=== PATIENT | female | born 1940 | race Caucasian/White ===

== ENCOUNTER 2019-08-28 11:36 | Observation (INO) | payer MEDICARE, BC ==
--- OUTSIDE RECORDS SUMMARY | 2019-08-28 11:43 | XMS REPORT | Summary of Care ---
:1940 Author Organization [facility] Address [address] [address] Care Team Providers Name Role Phone Astrid Michelle Primary Care Provider Reason for Visit Reason Comments Suture / Staple Removal Encounter Details Date Type Department Care Team Description 07/10/2019 Office Visit [facility] Astrid Michelle MD Visit for suture removal (Primary Dx); Medicine [address] [facility] (hiatus hernia) [address] [place], [place] [id number] [place] [address] [phone] Allergies Active Allergy Reactions Severity Noted Date Comments No Known Allergies Other 02/08/2008 documented as of this encounter (statuses as of 07/10/2019) Medications Medication Sig Dispensed Refills Start Date End Date Status CENTRUM SILVER Oral Tab Take by mouth. 0 Active CALTRATE 600+D PLUS Take 1 Tab by 0 Active 600-400 MG-UNIT Oral mouth DAILY. Tab B-12 250 MCG Oral Tab Take 1 Tab by 0 Active mouth DAILY. Ferrous Sulfate (IRON) Take 1 Tab by 0 Active 325 (65 FE) MG Oral mouth TWICE TabIndications: Anemia DAILY. LISINOPRIL-HCTZ 10-12.5 Take 1 Tab by 90 Tab 3 04/24/2019 Active MG Oral TabIndications: mouth DAILY. Hypertension, unspecified type documented as of this encounter (statuses as of 07/10/2019) Active Problems Problem Noted Date Osteopenia 08/28/2014 Breast cancer 06/12/2013 Overview: Diagnosis 04/07; Dr Painting / Aguilar. 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 General patient education discussion including: obesity-related excess mortality Heme + stool 05/08/2009 Overview: 05/03 physical Diverticulosis of colon 05/03/2008 Overview: Colon 04/02-extensive diverticulosis Essential hypertension 01/20/2008 GERD 01/20/2008 HEART MURMUR 01/20/2008 Right bundle branch block 01/20/2008 documented as of this encounter (statuses as of 07/10/2019) Resolved Problems Problem Noted Date Resolved Date Anemia 01/20/2008 08/18/2011 documented as of this encounter (statuses as of 07/10/2019) Immunizations Name Administration Dates Next Due Influenza (IM) Preservative Free 04/19/2017, 06/25/2015, 06/06/2009 Influenza Vaccine 65 Yrs + 04/21/2019 Influenza Vaccine High Dose 04/20/2018, 04/20/2016 PNEUMOCOCCAL POLYSACCHARIDE VACCINE 03/04/2012 Pneumococcal Conjugate(13 Valent) 08/06/2015 documented as of this encounter Social History Tobacco Use Types Packs/Day Years Used Date Never Smoker Smokeless Tobacco: Never Used Alcohol Use Drinks/Week oz/Week Comments Yes ocass Social Isolation Answer Date Recorded In a typical week, how many times do you More than three times a week 2018 talk on the phone with family, friends, or neighbors? How often do you get together with friends More than three times a week 11/30 or relatives? How often do you attend episcopalian or Not asked mormon services? Do you belong to any clubs or Not asked organizations such as episcopalian groups, unions, fraternal or athletic groups, or school groups? How often do you attend meetings of the Not asked clubs or organizations you belong to? Are you now , , , 11/30/2018 , never or living with a partner? Physical Activity Answer Date Recorded On average, how many days per week do you engage in moderate to 0 days 2018 strenuous exercise (like walking fast, running, jogging, dancing, swimming, biking, or other activities that cause a light or heavy sweat)? On average, how many minutes do you engage in exercise at this 0 min 2018 level? Stress Answer Date Recorded Do you feel stress - tense, restless, nervous, or anxious, Not at all 2018 or unable to sleep at night because your mind is troubled all the time - these days? Financial Resource Strain Answer Date Recorded How hard is it for you to pay for the very basics like Not hard at all 2018 food, housing, medical care, and heating? Intimate Partner Violence Answer Date Recorded Within the last year, have you been afraid of your partner or No 11/30/2018 ex-partner? Within the last year, have you been humiliated or emotionally No 11/30/2018 abused in other ways by your partner or ex-partner? Within the last year, have you been kicked, hit, slapped, or No 11/30/2018 otherwise physically hurt by your partner or ex-partner? Within the last year, have you been raped or forced to have any No 11/30/2018 kind of sexual activity by your partner or ex-partner? Food Insecurity Answer Date Recorded Within the past 12 months, you worried that your food would Never true 2018 run out before you got money to buy more. Within the past 12 months, the food you bought just didn't Never true 2018 last and you didn't have money to get more. Transportation Needs Answer Date Recorded In the past 12 months, has lack of transportation kept you from No 11/30/2018 medical appointments or from getting medications? In the past 12 months, has lack of transportation kept you from No 11/30/2018 meetings, work, or getting things needed for daily living? Sex Assigned at Date Recorded Not on file Job Start Date Occupation Industry Not on file Not on file Not on file Travel History Travel Start Travel End No recent travel history available. documented as of this encounter Last Filed Vital Signs Vital Sign Reading Time Taken Comments Blood Pressure 138/70 07/10/2019 2:57 PM EST Pulse 103 07/10/2019 2:57 PM EST Temperature - - Respiratory Rate - - Oxygen Saturation 98% 07/10/2019 2:57 PM EST Inhaled Oxygen Concentration - - Weight 101.1 kg (222 lb 12.8 oz) 07/10/2019 2:57 PM EST Height 165.1 cm (5' 5") 07/10/2019 2:57 PM EST Body Mass Index 37.08 07/10/2019 2:57 PM EST documented in this encounter Progress Notes Astrid Michelle MD - 07/10/2019 2:40 PM EST NAME:Laura Blanton [birth year] ENC Date: 07/10/2019 CC: Chief Complaint Patient presents with Suture / Staple Removal Laura Blanton is a 79-y.o. female accompanied by spouse Benign lesion of the right forearm excized last week - Reviewed path with patient 2. Following with Dr Sheikh - Recent endoscopies showed hiatal hernia but nothing bleeding overtly- Current Outpatient Medications Medication Sig B-12 250 MCG Oral Tab Take 1 Tab by mouth DAILY. CALTRATE 600+D PLUS 600-400 MG-UNIT Oral Tab Take 1 Tab by mouth DAILY. CENTRUM SILVER Oral Tab Take by mouth. Ferrous Sulfate (IRON) 325 (65 FE) MG Oral Tab Take 1 Tab by mouth TWICE DAILY. LISINOPRIL-HCTZ 10-12.5 MG Oral Tab Take 1 Tab by mouth DAILY. No current facility-administered medications for this visit. Patient Active Problem List Diagnosis Date Noted Osteopenia 08/28/2014 Breast cancer (HCC) 06/12/2013 Diagnosis 04/07; Dr Painting / Aguilar. 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 General patient education discussion including: obesity-related excess mortality Heme + stool 05/08/200905/03 physical Diverticulosis of colon 05/03/2008 Colon 04/02-extensive diverticulosis Essential hypertension 01/20/2008 GERD 01/20/2008 HEART MURMUR 01/20/2008 Right bundle branch block 01/20/2008 Family History Problem Relation Age of Onset Heart Father Cervical Cancer Sister Arthritis Mother Lung Cancer Mother Cancer Sister Uncertain; possibly lung Breast Cancer Daughter No Known Problems Sister Non-Applicable Daughter Hysterectomy No Known Problems Daughter No cardiopulmonary symptoms No upper or lower GI complaints No urinary tract symptoms. No bruising/ bleeding. No neurological complaints . No insomnia.+ . Social History Tobacco Use Smoking status: Never Smoker Smokeless tobacco: Never Used Substance Use Topics Alcohol use: Yes Comment: ocass Drug use: No OBJECTIVE: BP 138/70 | Pulse 103 | Ht 5' 5" (1.651 m) | Wt 222 lb 12.8 oz (101.1 kg) | SpO2 98% | BMI 37.08 kg/m . Wound healing well- Left one stitch in the center - will remove - A/P ICD-9-CM ICD-10-CM 1. Visit for suture removal V58.32 Z48.02 2. HH (hiatus hernia) 553.3 K44.9 There are no Patient Instructions on file for this visit. AUTHOR: Astrid Michelle MD 17:28 07/10/2019 documented in this encounter Plan of Treatment Date Type Specialty Care Team Description 12/06/2019 Chronic Care Management Family Practice Health Maintenance Due Date Last Done Comments DTaP/Tdap/Td Vaccines ( - 1952 Tdap) DEPRESSION SCREENING 12/01/2019 11/30/2018 FALL RISK ASSESSMENT 12/01/2019 11/30/2018, 11/30/2018 MEDICARE ANNUAL WELLNESS 12/01/2019 11/30/2018, 10/26/2017, VISIT 04/20/2016, Additional history exists ZOSTER IMMUNIZATION SERIES 06/28/2020 Postponed from (1 of 2) 1991 (Vaccine not available) OSTEOPOROSIS SCREENING 08/27/2027 08/27/2017, 09/08/2016, 04/22/2015, Additional history exists PNEUMOCOCCAL 65+YRS Completed 08/06/2015, 03/04/2012 INFLUENZA VACCINE Completed 04/21/2019, 04/20/2018, 04/19/2017, Additional history exists HEPATITIS A IMMUNIZATION Aged Out No longer eligible SERIES based on patient's age to complete this topic HPV IMMUNIZATION SERIES Aged Out No longer eligible based on patient's age to complete this topic MENINGOCOCCAL VACCINE IMM Aged Out No longer eligible based on patient's age to complete this topic documented as of this encounter Goals Goal Patient Goal Associated Recent Patient-Stated? Author Type Problems Progress Blood Pressure Blood Pressure 138/70 No Viviana, < 150/90 (07/10/2019 MD Astrid 2:57 PM EST) Note: This is an individualized treatment (blood pressure) goal for Laura Barrera Austic: Displayed above (on the left) is your goal for blood pressure control. Your most recent blood pressure is also shown above, on the right. You should try to achieve blood pressures that are lower than your goal listed above (on the left). Weight loss vs. 18 mo Lifestyle 13.1 (07/10/2019 2:57 PM No Astrid Michelle MD max (lbs) >= 10 EST) Note: This is an individualized lifestyle goal for Laura Barrera Austic: Your body mass index (BMI) is more than 30. You should lose weight. A reasonable starting goal is to lose 10 pounds. Displayed above is how many pounds you have lost thus far towards your 10 pound weight loss goal. Take all prescribed medications as directed Self-management Astrid Anderson MD Note: This is an individualized self-management goal for Laura Barrera Austic: Please take all prescribed medications as directed. 1. Do not skip doses. If you cannot afford your medications, talk with your doctor. 2. Use a pill reminder system such as a pill box if needed. Your pharmacist can help you with this. 3. Contact your Pharmacy 5 days before your medication runs out. If you cannot take your medications for any reasons, talk with your doctor. 4. Please bring all of your medication bottles and inhalers (or a list of all your medications/inhalers) with you to every visit. Potential barriers to meeting all of your care plan goals will continue to be addressed on an ongoing basis. 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
--- NOTE | 2019-08-28 11:52 | ED ---
Lower Extremity - HPI Summary HPI Summary: Patient is a 79 y/o F presenting to the ED via EMS for a chief complaint of bilateral knee pain after a fall on 08/27/19. Currently, patient complains of bilateral knee pain, right more than left, which worsens with movement and is resolved at rest. Patient also notes dizziness and generalized weakness. She denies decreased appetite. Per EMS, patient has a precancerous blood disorder for which she is on day 6 out of 7 for chemotherapy treatments. She is due for another appointment with Dr. Sheikh at 12:00 on 08/28/19, but was advised to be seen at [facility] for the knee pain. - History of Current Complaint Stated Complaint: FALL- KNEE PAIN PER EMS Time Seen by Provider: 08/28/19 11:51 Hx Obtained From: Patient, EMS Mechanism Of Injury: Fall From A Standing Position Onset of Pain: Hours Onset/Duration: Still Present Severity Initially: Moderate Severity Currently: Moderate Pain Scale Used: 0-10 Numeric Timing: Constant Location: Is Discrete @ - Bilateral knees Associated Signs And Symptoms: Positive: Weakness - Generalized, Dizziness, Knee Pain - Bilateral knee, right more than left Aggravating Factor(s): Movement Alleviating Factor(s): Rest - Allergies/Home Medications Allergies/Adverse Reactions: Allergies Allergy/AdvReac Type Severity Reaction Status Date / Time No Known Allergies Allergy Verified 07/07/19 15:21 PMH/Surg Hx/FS Hx/Imm Hx Previously Healthy: Yes Endocrine/Hematology History: Reports: Hx Blood Disorders - Precancerous Musculoskeletal History: Denies: Hx Osteoporosis Sensory History: Denies: Hx Legally Blind, Hx Deafness Opthamlomology History: Denies: Hx Legally Blind EENT History: Denies: Hx Deafness - Cancer History Cancer Type, Location and Year: Precancerous blood disorder Hx Chemotherapy: Yes - Surgical History Surgical History: Yes Surgery Procedure, Year, and Place: TONSILLECTOMY Infectious Disease History: No Infectious Disease History: Denies: Traveled Outside the [place] in Last 30 Days - Family History Known Family History: Negative: Cardiac Disease - Social History Occupation: Retired Lives: With Family Alcohol Use: None Hx Substance Use: No Substance Use Type: Reports: None Hx Tobacco Use: No Smoking Status (MU): Never Smoked Tobacco Review of Systems Negative: Other - Negative decreased appetite Positive: Arthralgia - Bilateral knee, right more than left Neurological: Other - Positive dizziness Positive: Weakness - Generalized All Other Systems Reviewed And Are Negative: Yes Physical Exam - Summary Physical Exam Summary: VITAL SIGNS: Reviewed. GENERAL: Patient is a well-developed and nourished female with pallor who is lying comfortable in the stretcher. Patient is not in any acute respiratory distress. HEAD AND FACE: No signs of trauma. No ecchymosis, hematomas or skull depressions. No sinus tenderness. EYES: PERRLA, EOMI x 2, No injected conjunctiva, no nystagmus. EARS: Hearing grossly intact. Ear canals and tympanic membranes are within normal limits. MOUTH: Oropharynx within normal limits. NECK: Supple, trachea is midline, no adenopathy, no JVD, no carotid bruit, no c- spine tenderness, neck with full ROM. CHEST: Symmetric, no tenderness at palpation. LUNGS: Clear to auscultation bilaterally. No wheezing or crackles. CVS: Regular rate and rhythm, S1 and S2 present, no murmurs or gallops appreciated. ABDOMEN: Soft, non-tender. No signs of distention. No rebound, no guarding, and no masses palpated. Bowel sounds are normal. EXTREMITIES: FROM in all major joints, no cyanosis or clubbing. Bilateral knee edema. NEURO: Alert and oriented x 3. No acute neurological deficits. Speech is normal and follows commands. SKIN: Dry and warm. Triage Information Reviewed: Yes Vital Signs Reviewed: Yes Procedures - Sedation Patient Received Moderate/Deep Sedation with Procedure: No Diagnostics - Laboratory Result Diagrams: 08/28/19 13:15 08/28/19 13:15 Lab Statement: Any lab studies that have been ordered have been reviewed, and results considered in the medical decision making process. - Radiology Chest X-ray Radiology Interpretation Completed By: Radiologist Summary of Radiographic Findings: Chest X-ray IMPRESSION: #. No acute pulmonary or cardiac process evident. #. Suggestion of a retrocardiac hiatal hernia with associated compressive atelectasis at the medial LEFT lower lobe. Reviewed by Dr. Auguste. Knee X-ray Radiology Interpretation Completed By: Radiologist Summary of Radiographic Findings: Knee X-ray IMPRESSION: BILATERAL OSTEOARTHRITIS. OSTEOPENIA. NO ACUTE OSSEOUS INJURY. THE DEGREE OF OSTEOPENIA MAY MAKE A NONDISPLACED FRACTURE RADIOGRAPHICALLY OCCULT. IF SYMPTOMS PERSIST, RECOMMEND REPEAT IMAGING. Reviewed by Dr. Auguste. - EKG 12:35 Cardiac Rate: NL - 82 BPM EKG Rhythm: Sinus Rhythm ST Segment: Normal Ectopy: None Summary of EKG Findings: EKG at 12:35 shows normal sinus rhythm with 82 BPM, no ST elevations, no STEMI, poor quality EKG. Reviewed and interpreted by Dr. Auguste. Lower Extremity Course/Dx - Course Assessment/Plan: Patient is a 79 y/o F presenting to the ED via EMS for a chief complaint of bilateral knee pain after a fall on 08/27/19. Currently, patients complain of bilateral knee pain, right more than left, which worsens with movement and is resolved at rest. Patient also notes dizziness and generalized weakness. She denies decreased appetite. Per EMS, the patient has a precancerous blood disorder for which she is on day 6 out of 7 for chemotherapy treatments. She is due for another appointment with Dr. Sheikh at 12:00 on , but was advised to be seen at [facility] for the knee pain. In the ED course the patient was placed on a monitoring specialist, IV access was obtained, and IV fluids started. Blood test is w/o any significant abnormality except for CXR: No acute pulmonary process evident. B/L KNee x rays: bilateral osteoarthritis. Osteopenia. No acute osseous injury. I discussed the case with Wendy Capellan NP from oncology and after she examined the patient, she decided to admit the patient to Dr. Sheikh's services for further workup and management. The patient is hemodynamically stable. - Diagnoses Provider Diagnoses: Elevated troponin, Weakness, Fall, Knee pain, bilateral - Physician Notifications Discussed Care Of Patient With: Jose Edge - At 14:34, Dr. Jose Edge will consult for the patient. At 14:50, Dr. Sheikh reviewed the patients case and agrees to admit the patient to [facility] with a diagnosis of elevated troponin, weakness, fall, and bilateral knee pain. Time Discussed With Above Provider: 14:34 Instructed by Provider To: Admit As Inpatient Discharge ED - Sign-Out/Discharge Documenting (check all that apply): Patient Departure - Admit - Discharge Plan Condition: Stable Disposition: ADMITTED TO [facility] - Billing Disposition and Condition Condition: STABLE Disposition: Admitted to [facility] - Attestation Statements Document Initiated by Scribe: Yes Documenting Scribe: Monica Moreno Provider For Whom Scribe is Documenting (Include Credential): Charlie Auguste MD Scribe Attestation: I, Monica Moreno, scribed for Charlie Auguste MD on 08/28/19 at 2142. Scribe Documentation Reviewed: Yes Provider Attestation: The documentation as recorded by the allenibeMonica accurately reflects the service I personally performed and the decisions made by me, Charlie Auguste MD Status of Scribe Document: Viewed
[2019-08-28 13:45] LABS: ABS Lymphocytes 0.7 10^3/ul (1.0-4.8); ABS Neutrophils 2.1 10^3/ul (1.5-7.7); Eosinophil % 0.3 %; Hematocrit 22 % (35-47); Hemoglobin 7.9 g/dL (12.0-16.0); Lymphocyte % 24.1 %; Mean Corpuscular HGB Conc 35 g/dL (31-36); Mean Corpuscular Hemoglobin 39 pg (27-31); Mean Corpuscular Volume 113 fL (80-97); Mean Platelet Volume 7.5 fL (7.4-10.4); Nucleated Red Blood Cells % 0.8; Platelet Count 53 10^3/uL (150-450); Red Blood Count 1.99 10^6 /uL (3.70-4.87); Red Cell Distribution Width 25 % (10-15); White Blood Count 2.8 10^3/uL (3.5-10.8)
[2019-08-28 13:50] LABS: ALT 12 U/L (7-52); AST 15 U/L (13-39); Albumin 3.8 g/dL (3.2-5.2); Albumin/Globulin Ratio 1.2 (1-3); Alkaline Phosphatase 42 U/L (34-104); Anion Gap 6 mmol/L (2-11); BUN/Creatinine Ratio 22.2 (8-20); Blood Urea Nitrogen 20 mg/dL (6-24); CO2 Carbon Dioxide 31 mmol/L (22-32); Calcium 10.3 mg/dL (8.6-10.3); Chloride 97 mmol/L (101-111); EGFR African American 73.3 (>60); EGFR Non-African American 60.6 (>60); Globulin 3.1 g/dL (2-4); Glucose 124 mg/dL (70-100); Magnesium 1.9 mg/dL (1.9-2.7); Sodium 134 mmol/L (135-145); Total Protein 6.9 g/dL (6.4-8.9)
[2019-08-28 13:54] LABS: Troponin I 0.03 ng/mL (<0.03)
[2019-08-28 14:09] LABS: Polychromasia 1+
[2019-08-28 14:32] LABS: TSH (Thyroid Stimulating Horm) 0.35 mcIU/mL (0.34-5.60)
[2019-08-28] MEDS ORDERED: Aspirin 81 mg CHEW TAB* 81 MG TAB.CHEW PO ONE (14:33)
[2019-08-28] MEDS ORDERED: Acetaminophen TAB* 325 MG PO PRN (14:59)
[2019-08-28] MEDS ORDERED: NS 0.9% 1000 ML** 1,000 ML IV SCH (15:00)
[2019-08-28] MEDS ORDERED: Ondansetron ODT TAB* 4 MG PO PRN (15:13)
[2019-08-28 16:34] LABS: Troponin I 0.03 ng/mL (<0.03)
[2019-08-28 19:42] LABS: Troponin I 0.03 ng/mL (<0.03)
[2019-08-29 06:08] LABS: Hematocrit 24 % (35-47); Hemoglobin 8.1 g/dL (12.0-16.0); Mean Corpuscular HGB Conc 34 g/dL (31-36); Mean Corpuscular Hemoglobin 36 pg (27-31); Mean Corpuscular Volume 106 fL (80-97); Mean Platelet Volume 8.1 fL (7.4-10.4); Platelet Count 43 10^3/uL (150-450); Red Blood Count 2.26 10^6 /uL (3.70-4.87); Red Cell Distribution Width 28 % (10-15); White Blood Count 2.6 10^3/uL (3.5-10.8)
[2019-08-29 06:21] LABS: Albumin 3.4 g/dL (3.2-5.2); Albumin/Globulin Ratio 1.3 (1-3); BUN/Creatinine Ratio 28.2 (8-20); Calcium 9.1 mg/dL (8.6-10.3); EGFR African American 78.3 (>60); EGFR Non-African American 64.7 (>60); Globulin 2.7 g/dL (2-4); Total Bilirubin 0.6 mg/dL (0.2-1.0); Total Protein 6.1 g/dL (6.4-8.9)
[2019-08-29 06:59] LABS: Nucleated Red Blood Cells % 1.4
[2019-08-29] MEDS ORDERED: Multivitamins/Minerals TAB PO SCH (09:00)
[2019-08-29] MEDS ORDERED: NS 0.9% 1000 ML** 1,000 ML IV SCH (09:25)
--- NOTE | 2019-08-29 11:07 | DS ---
- Discharge Summary Admission: 08/28/19 OBV Discharge: 08/29/19 Discharge Diagnosis: 1. Anemia: s/p 1 unit PRBCs yesterday evening, recently started Aranesp [id number] 2. Weakness and falls: related to anemia, deconditioning, and mild hypotension, PT on d/c 3. 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 Briefly, Mrs. Blanton is well known to our service due to her distant PMH of breast cancer most recently diagnosed with MDS having initiated treatment with Azacitidine and Aranesp. She presented to the ER yesterday with increased weakness and several falls with significant knee pain. X-rays in the ER were negative for acute fracture with underlying OA. She was found to have recurrent anemia with hmg 7.9 and a borderline troponin of 0.03. The later was felt to be mild demand ischemia due to chronic anemia from MDS. She was admitted for observation with telemetry monitoring, fluids, blood transfusion, PT & OT eval., and repeat troponins q3hs x3 total (these all remained at 0.03). She tolerated her transfusion well and tells me she feels a little stronger today. Mrs. Blanton has been able to ambulate with nursing and both she and her family feels she is safe for discharge home. At this time there is no indication for a cardiac event and she will be discharge with plan to resume her current chemotherapy cycle. I do feel she will benefit from a home nursing assessment, PT, and OT and she is agreeable to this. Her assures me they already have a walker at home. She will follow-up with our office on 09/04/19 with repeat labs as well. Plan of care reviewed with all questions answered.
[2019-08-29 11:15] VITALS: BP 118/60
[2019-08-29 11:49] LABS: Urine Appearance Cloudy; Urine Bilirubin Negative (Negative); Urine Blood Negative (Negative); Urine Color Yellow; Urine Glucose Negative (Negative); Urine Ketones Negative (Negative); Urine Nitrite Negative (Negative); Urine Protein Negative (Negative); Urine Urobilinogen Negative (Negative)
== END 2019-08-29 12:42 | disposition home or self-care (01) ==
LOC: ED 11:36 → INTOOBSV 15:49 → MEDTELE 15:49
PROVIDERS: ADMIT Internal Medicine Hematology & Oncology; ATTEND Internal Medicine Hematology & Oncology
DX: D46.9 Myelodysplastic syndrome, unspecified (principal); D75.9 Disease of blood and blood-forming organs, unspecified; R53.83 Other fatigue; Z91.81 History of falling; I95.1 Orthostatic hypotension; Z85.3 Personal history of malignant neoplasm of breast; Z92.21 Personal history of antineoplastic chemotherapy; M25.562 Pain in left knee; M25.561 Pain in right knee; R79.89 Other specified abnormal findings of blood chemistry
CPT/HCPCS: 36415; 36430; 71045; 80053; 81003; 83605; 83735; 83880; 84443; 84484; 85025; 86140; 86850; 86900; 86901; 86922; 93005; 99219; 99239; 99284; A9270-GY; G0378; P9040

== ENCOUNTER 2019-10-04 16:43 | Inpatient (IN) | payer MEDICARE, BC ==
--- NOTE | 2019-10-04 20:15 | ED ---
HPI Febrile Illness - HPI Summary HPI Summary: The patient is a 79-year-old female presenting to [facility] [place] accompanied by with a chief complaint of febrile illness onset yesterday. 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 James. Her reports that she often feels unwell after a treatment, but she developed a fever, generalized weakness, fatigue, and sore throat yesterday, which is not typical for her. Today, her visiting nurse noticed she was hypoxic with O2 in the 80s%. She spoke with Dr. James from oncology who recommended she come here. She has not treated her symptoms with any medications prior to arrival. There are no aggravating or alleviating symptoms. She is not in any pain at this time. Past medical history significant for hypertension. Nonsmoker, no alcohol use, no substance use. Medications reviewed. Allergies noted. - History of Current Complaint Chief Complaint: EDFluSymptoms Time Seen by Provider: 10/04/19 19:51 Hx Obtained From: Patient Onset/Duration: Started Hours Ago, Still Present Timing: Constant Initial Severity: Mild Current Severity: Mild Pain Intensity: 0 Pain Scale Used: 0-10 Numeric Aggravating Factors: Nothing Alleviating Factors: Nothing Associated Signs and Symptoms: Sore Throat, Other: - fatigue, generalized weakness - Additional Pertinent History Primary Care Physician: LIANA - Allergy/Home Medications Allergies/Adverse Reactions: Allergies Allergy/AdvReac Type Severity Reaction Status Date / Time No Known Allergies Allergy Verified 07/07/19 15:21 Home Medications: Home Medications Calcium Carbonate/Vitamin D3 [Caltrate 600 + D Soft Chew Tab] 1 chw PO BID 06/13 [History Confirmed 10/04/19] Multivit-Min/Iron/Folic/Lutein [Centrum Silver Women Tablet] 1 each PO DAILY 04/14 [History Confirmed 10/04/19] Acetaminophen TAB* [Tylenol TAB*] 650 mg PO Q6H PRN tab 08/29/19 [Rx Confirmed 10/04/19] Cyclobenzaprine (NF) [Cyclobenzaprine 5 MG (NF)] 5 - 10 mg PO BEDTIME 10/04/19 [ History Confirmed 10/04/19] Lisinopril/Hydrochlorothiazide [Lisinopril-Hctz 10-12.5 mg Tab] 1 tab PO DAILY 10/04/19 [History Confirmed 10/04/19] Azithromycin 250 mg PO DAILY #2 tablet 10/06/19 [Rx] Cefuroxime 500 MG TAB (NF) [Ceftin 500 MG TAB (NF)] 500 mg PO BID #10 tab [Rx] PMH/Surg Hx/FS Hx/Imm Hx Endocrine/Hematology History: Reports: Hx Blood Disorders - Precancerous Denies: Hx Diabetes Cardiovascular History: Reports: Hx Hypertension Denies: Hx Hypercholesterolemia Musculoskeletal History: Denies: Hx Osteoporosis Sensory History: Reports: Hx Contacts or Glasses Denies: Hx Legally Blind, Hx Deafness, Hx Hearing Aid Opthamlomology History: Reports: Hx Contacts or Glasses Denies: Hx Legally Blind - Cancer History Cancer Type, Location and Year: Precancerous blood disorder, breast cancer with MDS Hx Chemotherapy: Yes - Surgical History Surgical History: Yes Surgery Procedure, Year, and Place: TONSILLECTOMY Infectious Disease History: No Infectious Disease History: Denies: Traveled Outside the [place] in Last 30 Days - Family History Known Family History: Negative: Cardiac Disease - Social History Alcohol Use: None Hx Substance Use: No Substance Use Type: Reports: None Hx Tobacco Use: No Smoking Status (MU): Never Smoked Tobacco Review of Systems Positive: Fever, Fatigue Positive: Sore Throat Positive: Other - hypoxia Positive: Weakness - generalized All Other Systems Reviewed And Are Negative: Yes Physical Exam - Summary Physical Exam Summary: VITAL SIGNS: Reviewed. GENERAL: Patient is a well-developed and nourished elderly female who is lying comfortable in the stretcher. Patient is not in any acute respiratory distress. Patient is asleep and tired. She requests for her to talk for her. HEAD AND FACE: No signs of trauma. No ecchymosis, hematomas or skull depressions. No sinus tenderness. EYES: PERRLA, EOMI x 2, No injected conjunctiva, no nystagmus. EARS: Hearing grossly intact. Ear canals and tympanic membranes are within normal limits. MOUTH: Dry oral mucosa. NECK: Supple, trachea is midline, no adenopathy, no JVD, no carotid bruit, no c- spine tenderness, neck with full ROM. CHEST: Symmetric, no tenderness at palpation. LUNGS: Clear to auscultation bilaterally. Crackles in both bases, more in the left. No wheezing. CVS: Regular rate and rhythm, S1 and S2 present, no murmurs or gallops appreciated. ABDOMEN: Soft, non-tender. No signs of distention. No rebound, no guarding, and no masses palpated. Bowel sounds are normal. EXTREMITIES: FROM in all major joints, no edema, no cyanosis or clubbing. NEURO: Alert and oriented x 3. No acute neurological deficits. Speech is normal and follows commands. SKIN: Dry and warm. Triage Information Reviewed: Yes Vital Signs On Initial Exam: Initial Vitals Temp Pulse Resp BP Pulse Ox 97.7 F 107 18 116/74 96 10/04/19 16:44 10/04/19 16:44 10/04/19 16:44 10/04/19 16:44 10/04/19 16:44 Vital Signs Reviewed: Yes Procedures - Sedation Patient Received Moderate/Deep Sedation with Procedure: No Diagnostics - Vital Signs Vital Signs Temp Pulse Resp BP Pulse Ox 10/04/19 18:07 98.4 F 96 18 134/74 97 10/04/19 16:44 97.7 F 107 18 116/74 96 - Laboratory Result Diagrams: 10/06/19 05:13 10/06/19 05:13 Lab Statement: Any lab studies that have been ordered have been reviewed, and results considered in the medical decision making process. - Radiology Chest XR Radiology Interpretation Completed By: ED Physician Summary of Radiographic Findings: Left lower lobe pneumonia. Dr. Auguste has reviewed and interpreted this report. Pending official read. Course/Dx - Course Assessment/Plan: The patient is a 79-year-old female presenting to [facility] [place] [facility] [place] accompanied by with a chief complaint of febrile illness onset yesterday. 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 James. Her reports that she often feels unwell after a treatment, but she developed a fever, generalized weakness, fatigue, and sore throat yesterday , which is not typical for her. Today, her visiting nurse noticed she was hypoxic with O2 in the 80s%. She spoke with Dr. James from oncology who recommended she come here. She has not treated her symptoms with any medications prior to arrival. There are no aggravating or alleviating symptoms. She is not in any pain at this time. Past medical history significant for hypertension. Nonsmoker, no alcohol use, no substance use. Medications reviewed. Allergies noted. Blood work w//o a significant abnormality. WBC decreased and increased CRP. Patient with Hx of fever, lethargy, porductive cough s/p chemotherapy. I believe patijerry has a left lower lobe pnumonia. Thus, she was given Rocephin and Azithromyci. I discused the case with Dr. Pennington and agreed for admition to his service. - Diagnoses Provider Diagnoses: Pneumonia - Provider Notifications Discussed Care Of Patient With: Bam Pennington - hospitalist Time Discussed With Above Provider: 21:07 Instructed by Provider To: Other - I discussed the patients case with Dr. Pennington, who accepts the patient for admission. Discharge ED - Sign-Out/Discharge Documenting (check all that apply): Patient Departure - Patient accepted for admissionby Dr. Pennington. - Discharge Plan Condition: Improved Disposition: ADMITTED TO [facility] - Billing Disposition and Condition Condition: IMPROVED Disposition: Admitted to [facility] - Attestation Statements Document Initiated by Emersone: Yes Documenting Scribe: Mary Jaquze Provider For Whom Justin is Documenting (Include Credential): Dr. Charlie Auguste MD Scribe Attestation: I, Mary Jaquez, scribed for Dr. Charlie Auguste MD on 10/07/19 at 1725. Scribe Documentation Reviewed: Yes Provider Attestation: The documentation as recorded by the Mary campuzano accurately reflects the service I personally performed and the decisions made by me, Dr. Charlie Auguste MD Status of Scribe Document: Viewed
[2019-10-04 20:24] LABS: ABS Lymphocytes 0.7 10^3/ul (1.0-4.8); ABS Neutrophils 1.4 10^3/ul (1.5-7.7); Eosinophil % 0.4 %; Hematocrit 24 % (35-47); Hemoglobin 8.3 g/dL (12.0-16.0); Lymphocyte % 34.1 %; Mean Corpuscular HGB Conc 34 g/dL (31-36); Mean Corpuscular Hemoglobin 33 pg (27-31); Mean Corpuscular Volume 98 fL (80-97); Mean Platelet Volume 8.3 fL (7.4-10.4); Nucleated Red Blood Cells % 0.3; Platelet Count 61 10^3/uL (150-450); Red Blood Count 2.49 10^6 /uL (3.70-4.87); Red Cell Distribution Width 29 % (10-15); White Blood Count 2.1 10^3/uL (3.5-10.8)
[2019-10-04 20:41] LABS: Albumin 3.3 g/dL (3.2-5.2); Albumin/Globulin Ratio 0.9 (1-3); C Reactive Protein 172.57 mg/L (<8.01); Calcium 9.3 mg/dL (8.6-10.3); EGFR African American 83.9 (>60); EGFR Non-African American 69.4 (>60); Globulin 3.6 g/dL (2-4); Potassium 3.9 mmol/L (3.5-5.0); Total Protein 6.9 g/dL (6.4-8.9)
[2019-10-04 21:07] LABS: Influenza A Molecular Negative (Negative); Influenza B Molecular Negative (Negative)
[2019-10-04] MEDS ORDERED: Azithromycin 500 mg/250 ml NS 500 MG/250 ML BAG IVPB ONE (21:08)
[2019-10-04 21:25] LABS: Total Bilirubin 0.4 mg/dL (0.2-1.0)
[2019-10-04] MEDS ORDERED: Acetaminophen TAB* 325 MG PO PRN ×2 (21:52→22:03)
[2019-10-04] MEDS ORDERED: Ondansetron INJ* 2 MG/ML VIAL IV PRN (22:03)
[2019-10-04] MEDS ORDERED: Al Hydrox/Mg Hydrox/Simet LIQ* 30 ML UDC PO PRN (22:03)
[2019-10-05] MEDS ORDERED: Enoxaparin(*) 40 MG/0.4 ML SYR SUBCUT SCH
[2019-10-05] MEDS: cefTRIAXone(*) 1 GM in NS 0.9% 50 ML* 50 ML IVPB SCH ×2 (00:28→23:47)
[2019-10-05] MEDS: NS 0.9% 1000 ML** 1,000 ML IV SCH ×2 (00:28→10:18)
--- NOTE | 2019-10-05 05:43 | HP ---
HISTORY AND PHYSICAL: DATE OF ADMISSION: 10/04/19 HISTORY OF PRESENT ILLNESS: This is a 79-year-old female presenting today to the emergency room accompanied by with a chief complaint of fever onset yesterday. There is associated weakness and drowsiness and poor p.o. intake. The patient was recently diagnosed with MDS and is receiving chemo with [facility]. Dr. Sanjay James is her oncologist. reports that she feels unwell after chemo that developed fever and generalized weakness, fatigue and sore throat yesterday which he said is not typical for her. It was noticed that today visiting nurse observed that she was hypoxic with O2 saturations in the 80s. She spoke with her oncologist who recommended that they come to the ED. Her symptoms were not treated with any medications prior to arrival. They reported no aggravating or alleviating factors. She is not in any pain at this time. She denied chest pain, shortness of breath, but states she felt nauseated which had made her not to eat or drink as she used to. PAST MEDICAL HISTORY: 1. Breast cancer, status post chemo and radiation. 2. Anemia. 3. Hypertension. PAST SURGICAL HISTORY: 1. Breast biopsy. 2. Tonsillectomy. HOME MEDICATIONS: 1. Caltrate 1 p.o. chew b.i.d. 2. Centrum Silver for women 1 each day. 3. Tylenol 650 mg p.o. q.6 p.r.n. 4. Cyclobenzaprine 5 mg to 10 mg p.o. at bedtime. 5. Lisinopril/hydrochlorothiazide 10/12.5 mg p.o. daily. ALLERGIES: No known drug allergies. FAMILY HISTORY: Mother at age 69 due to lung cancer, reported mother was a heavy smoker. Father at age 72 due to heart attack; father also had history of hypertension and CAD. Her maternal grandmother is . Maternal grandfather also . Her paternal grandmother is . She does not know if her paternal grandfather is alive. She has 3 sisters and they are all alive. A sister had thyroid problem, another sister had myasthenia gravis. SOCIAL HISTORY: She is , lives with her . Has never smoked. She drinks occasionally. She consumes about 1 drink a week. Denied use of illicit drugs. Her diet consists of regular meals. She indicates activity level as sedentary. REVIEW OF SYSTEMS: Constitutional: No fevers as of now, but had fever yesterday; history of chills, weakness, exhaustion. Eyes: Normal. No significant visual difficulties. No diplopia. ENMT: Abnormal, tinnitus. Hematologic/lymphatic: Abnormal, MDS. Respiratory: No dyspnea on exertion, no chest pain, no cough or hemoptysis. Cardiovascular: No angina, no palpitations , no orthopnea. Gastrointestinal: Normal. Genitourinary: Normal. Musculoskeletal: Her knees hurt. Integumentary: No chronic rashes, inflammation, lacerations, or skin changes. Neurologic: No headache, blurred vision, no areas of focal weakness or numbness; reported weakness and general malaise. Psychiatric: Normal. Reported no insomnia, no depression, no anne or mood swings. No psychotropic drugs. PHYSICAL EXAMINATION GENERAL: The patient is a well-developed, well-nourished, elderly female who is lying comfortably in the bed, surrounded by family. She is not in any acute respiratory distress. The patient is drowsy and tired. On the request of her she said she was not doing good, that was why she was brought to the hospital. VITAL SIGNS: Initial temperature 7.7, pulse 107, respiratory rate 18, BP 116/74 , pulse oximetry 96. HEENT: Head and face: No signs of trauma, no ecchymosis, hematomas or scar depressions. No sinus tenderness. Eyes: EOMI. No injected conjunctivae. No nystagmus. PERRLA. Ears: Hearing grossly intact. Ear canals and tympanic membranes are within normal limits. Mouth: Dry oral mucosa. NECK: Supple. Trachea is midline. No adenopathy, no JVD. No carotid bruits. No C-spine tenderness. Neck with full range of motion. CHEST: Symmetric. No tenderness on palpation. LUNGS: Reduced breath sounds, crackles in both bases, more on the left. No wheezing. CARDIOVASCULAR: Regular rate and rhythm. S1 and S2 heard. No murmurs or gallops appreciated. ABDOMEN: Soft and nontender. No signs of distention. No rebound, no guarding , and no masses palpable. Bowel sounds normal in all 4 quadrants. EXTREMITIES: Full range of motion in all major joints. No edema, no cyanosis, no clubbing. NEUROLOGIC: Alert and oriented x3. No acute neurological deficits. Speech is normal and follows commands. SKIN: Dry and warm. DIAGNOSTIC STUDIES: Chest x-ray: Findings revealed left lower lobe pneumonia , still awaiting official report. LABORATORY FINDINGS: Hematology: WBC 2.1, RBC 2.49, hemoglobin 8.3, hematocrit 24, MCV 98, MCH 33, MCHC 34, RDW 29, platelet count 61. Chemistry: Sodium 136, potassium 3.9, chloride 103, carbon-dioxide 25, anion gap 8, BUN 20 , creatinine 0.8. Estimated GFR non- 69.4, BUN/creatinine ratio of 25.0, glucose 119, lactic acid 1.5, calcium 9.3, total bilirubin 0.4, AST 84, ALT 112, alkaline phosphatase 66, C-reactive protein 172.57. Total protein 6.9, albumin 3.3, globulin 3.6, albumin-globulin ratio 0.9. Influenza A and B negative. ASSESSMENT AND PLAN: A 79-year-old female presenting to the ED with complaints of fever, weakness, poor p.o. intake following chemotherapy. The patient will be admitted to the medical floor and treatment initiated. X-ray findings revealed left lower lobe pneumonia ADMITTING DIAGNOSES: 1. Left lower lobe pneumonia. 2. Weakness. 3. Myelodysplastic syndrome. 4. Hypertension. 5. Anemia. For pneumonia, I will start the patient on IV ceftriaxone 1 g daily, also start IV azithromycin 500 mg daily to cover for atypicals. For weakness, the patient will be encouraged to take p.o., but I will continue IV hydration with normal saline running at 125 mL/h. The patient already received 1 L bolus in the ED. For nausea and vomiting, the patient will be placed on IV Zofran 4 mg q.4 p.r.n. The patient will start her home meds for hypertension with holding parameters, lisinopril/hydrochlorothiazide. For MDS, the patient will continue to follow up with Oncology outpatient and continue her chemotherapy. For muscle spasm, the patient will continue her cyclobenzaprine. The patient to continue with Tylenol 650 mg q.6 for fever p.r.n. Code status: The patient to remain full code at this time. DVT prophylaxis: SCDs. Platelet count is low, so I will not place the patient on pharmacological anticoagulation at the moment. Fluid, electrolytes: Repleted as needed. TIME SPENT: Greater than 60 minutes for this admission, greater than half that time was spent [id number] with the patient obtaining my history and physical. The other half of the time was spent going over the plan of care with the patient and implementing plan of care. Thank you very much for the opportunity to partake in the healthcare need of this josef lady. [id number]/[facility] #: [id number] RICHIE
[2019-10-05 06:24] LABS: Hematocrit 20 % (35-47); Mean Corpuscular HGB Conc 35 g/dL (31-36); Mean Corpuscular Hemoglobin 34 pg (27-31); Mean Corpuscular Volume 98 fL (80-97); Mean Platelet Volume 8.5 fL (7.4-10.4); Platelet Count 55 10^3/uL (150-450); Red Blood Count 2.07 10^6 /uL (3.70-4.87); Red Cell Distribution Width 28 % (10-15); White Blood Count 1.6 10^3/uL (3.5-10.8)
[2019-10-05 06:44] LABS: BUN/Creatinine Ratio 26.9 (8-20); EGFR Non-African American 85.1 (>60); Potassium 3.9 mmol/L (3.5-5.0)
[2019-10-05 08:55] LABS: ABS Lymphocytes 0.6 10^3/ul (1.0-4.8); Eosinophil % 0.4 %; Lymphocyte % 35.8 %; Nucleated Red Blood Cells % 0.6
[2019-10-05] MEDS ORDERED: Lisinopril TAB* 10 MG PO SCH ×2 (09:00→09:59)
[2019-10-05] MEDS: Hydrochlorothiazide TAB* 25 MG PO SCH (10:07)
[2019-10-05] MEDS: Calcium/Vitamin D TAB 250/125* TAB PO SCH ×2 (10:07→22:15)
[2019-10-05] MEDS: Docusate CAP* 100 MG PO SCH ×2 (10:07→21:47)
--- NOTE | 2019-10-05 15:21 | PN ---
Subjective Date of Service: 10/05/19 Interval History: Ms. Blanton's is at bedside and fills in information, as she is somewhat confused, and has been for the last 1 week since 7 days of breast cancer treatment. She c/o occasional cough without shortness of breath, fever, chills. She denies urinary frequency, urgency, retention, dysuria; she denies abdominal pain, n/v/d and reports last BM was 2d ago. She reports aches for appx 1-2 days, although her notes baseline low back pain. No other complaints today. Objective Active Medications: Acetaminophen (Tylenol Tab*) 650 mg PO Q4H PRN PRN Reason: MILD PAIN or TEMP > 100.4 Al Hydrox/Mg Hydrox/Simethicone (Maalox Plus*) 30 ml PO Q6H PRN PRN Reason: INDIGESTION Calcium/Vitamin D (Oscal D Tab 250/125*) 2 tab PO BID [facility] Last Admin: 10/05/19 10:07 Dose: 2 tab Cyclobenzaprine HCl (Flexeril Tab*) 5 mg PO BEDTIME [facility]; Protocol Docusate Sodium (Colace Cap*) 100 mg PO BID [facility] Last Admin: 10/05/19 10:07 Dose: 100 mg Hydrochlorothiazide (Hydrodiuril Tab*) 12.5 mg PO DAILY [facility] Last Admin: 10/05/19 10:07 Dose: 12.5 mg Sodium Chloride (Ns 0.9% 1000 Ml) 1,000 mls @ 125 mls/hr IV PER RATE [facility] Last Admin: 10/05/19 10:18 Dose: 125 mls/hr Ceftriaxone Sodium 1 gm/ (Sodium Chloride) 50 mls @ 100 mls/hr IVPB Q24H [facility] Last Admin: 10/05/19 00:28 Dose: 100 mls/hr Azithromycin (Zithromax 500 Mg/250 Ml) 500 mg in 250 mls @ 250 mls/hr IVPB Q24H [facility] Lisinopril (Prinivil Tab*) 10 mg PO DAILY [facility]; Protocol Ondansetron HCl (Zofran Inj*) 4 mg IV Q4H PRN PRN Reason: NAUSEA/VOMITING Vital Signs: Temp Pulse Resp BP Pulse Ox 99.0 F 95 24 132/63 90 10/05/19 11:20 10/05/19 11:20 10/05/19 11:20 10/05/19 11:20 10/05/19 11:20 Oxygen Devices in Use Now: None Appearance: Mr. Blanton is an obese, elderly white woman who is laying on L side in bed. She appears to be in no acute distress and is breathing comfortably on room air. Eyes: No Scleral Icterus, PERRLA Ears/Nose/Mouth/Throat: NL Teeth, Lips, Gums, Clear Oropharnyx, Mucous Membranes Moist Neck: NL Appearance and Movements; NL JVP, Trachea Midline Respiratory: Symmetrical Chest Expansion and Respiratory Effort, - - LLL diminished, otherwise clear to auscultation Cardiovascular: NL Sounds; No Murmurs; No JVD, RRR, No Edema Abdominal: NL Sounds; No Tenderness; No Distention, No Hepatosplenomegaly Extremities: No Edema, No Clubbing, Cyanosis Neurological: Alert and Oriented x 3 Result Diagrams: 10/05/19 05:46 10/05/19 05:46 Assess/Plan/Problems-Billing Assessment: Ms. Blanton is a 79yof PMHx myelodysplastic syndrome, HTN, anemia, L breast cancer in 2012, who presented to the ER with fever. - Patient Problems (1) Fever Comment: -Tmax 100.5 during hospitalization -flu negative -UA ordered -CXR: large HH without signs of anemia -broad spectrum coverage with ctx, azithro (2) Anemia Comment: -asymptomatic with hgb at 7.0 -denies melena, jamila blood -stool for blood ordered -likely d/t MDS (3) Myelodysplastic syndrome Comment: -follows with [facility] for myelodysplastic syndrome; has h/o L breast cancer -oncology aware of admission (4) Hypertension Comment: -SBP 100-130's -continue lisinopril (5) DVT prophylaxis Comment: -platelets 55 and concern that they will dip below 50 in setting of infection -will hold on chemoprophylaxis at this time and continue to monitor platelets -SCDs (6) Full code status Status and Disposition: Inpatient. Discharge when stable.
[2019-10-05] MEDS ORDERED: Cyclobenzaprine TAB* 10 MG PO SCH (21:00)
[2019-10-05] MEDS ORDERED: Azithromycin 500 mg/250 ml NS 500 MG/250 ML BAG IVPB SCH (22:00)
[2019-10-06] MEDS: NS 0.9% 1000 ML** 1,000 ML IV SCH (00:54)
[2019-10-06 05:49] LABS: Hematocrit 21 % (35-47); Hemoglobin 7.2 g/dL (12.0-16.0); Mean Corpuscular HGB Conc 34 g/dL (31-36); Mean Corpuscular Hemoglobin 33 pg (27-31); Mean Corpuscular Volume 98 fL (80-97); Platelet Count 81 10^3/uL (150-450); Red Blood Count 2.18 10^6 /uL (3.70-4.87); Red Cell Distribution Width 29 % (10-15)
[2019-10-06 06:01] LABS: BUN/Creatinine Ratio 15.2 (8-20); Calcium 8.2 mg/dL (8.6-10.3); EGFR African American 104.8 (>60); EGFR Non-African American 86.6 (>60); Potassium 3.6 mmol/L (3.5-5.0)
[2019-10-06 06:32] LABS: ABS Lymphocytes 0.7 10^3/ul (1.0-4.8); ABS Neutrophils 1.3 10^3/ul (1.5-7.7); Eosinophil % 0.4 %; Lymphocyte % 34.3 %; Nucleated Red Blood Cells % 0.7
--- NOTE | 2019-10-06 08:05 | PN ---
Subjective Date of Service: 10/06/19 Interval History: Patient seen and examined at bedside Patient very adamant about seeing Dr. Sheikh and going home States she is "in the transfer center", names month and year as August 2005 Cannot recall birthday Denies chest pain, SOB, abd pain, n/v; very fidgety and missing her armband and actively trying to remove her IV Patient just voided - no complaints verbalized to the nurse. She denies dysuria or feeling of incomplete emptying. Per nursing and case management, patient known to have mild to moderate cognitive impairment at baseline. She receives care from family and home nursing. Family History: Unchanged from Admission Social History: Unchanged from Admission Past Medical History: Unchanged from Admission Objective Active Medications: Acetaminophen (Tylenol Tab*) 650 mg PO Q4H PRN PRN Reason: MILD PAIN or TEMP > 100.4 Al Hydrox/Mg Hydrox/Simethicone (Maalox Plus*) 30 ml PO Q6H PRN PRN Reason: INDIGESTION Calcium/Vitamin D (Oscal D Tab 250/125*) 2 tab PO BID [facility] Last Admin: 10/05/19 22:15 Dose: 2 tab Cyclobenzaprine HCl (Flexeril Tab*) 5 mg PO BEDTIME [facility]; Protocol Last Admin: 10/05/19 22:15 Dose: 5 mg Docusate Sodium (Colace Cap*) 100 mg PO BID [facility] Last Admin: 10/05/19 21:47 Dose: 100 mg Hydrochlorothiazide (Hydrodiuril Tab*) 12.5 mg PO DAILY [facility] Last Admin: 10/05/19 10:07 Dose: 12.5 mg Sodium Chloride (Ns 0.9% 1000 Ml) 1,000 mls @ 125 mls/hr IV PER RATE [facility] Last Admin: 10/06/19 00:54 Dose: 125 mls/hr Ceftriaxone Sodium 1 gm/ (Sodium Chloride) 50 mls @ 100 mls/hr IVPB Q24H [facility] Last Admin: 10/05/19 23:47 Dose: 100 mls/hr Azithromycin (Zithromax 500 Mg/250 Ml) 500 mg in 250 mls @ 250 mls/hr IVPB Q24H [facility] Last Admin: 10/05/19 21:43 Dose: 250 mls/hr Lisinopril (Prinivil Tab*) 10 mg PO DAILY [facility]; Protocol Ondansetron HCl (Zofran Inj*) 4 mg IV Q4H PRN PRN Reason: NAUSEA/VOMITING Vital Signs - 8 hr 10/06/19 10/06/19 00:00 02:50 Temperature 98.0 F Pulse Rate 97 Respiratory 18 18 Rate Blood Pressure 142/61 (mmHg) O2 Sat by Pulse 92 Oximetry Oxygen Devices in Use Now: None Appearance: Older female, pleasantly confused, ambulatory, NAD Eyes: No Scleral Icterus, PERRLA Ears/Nose/Mouth/Throat: Clear Oropharnyx, Mucous Membranes Moist Neck: NL Appearance and Movements; NL JVP Respiratory: Symmetrical Chest Expansion and Respiratory Effort, - - mildly diminished in LLL Cardiovascular: NL Sounds; No Murmurs; No JVD, RRR, No Edema Abdominal: NL Sounds; No Tenderness; No Distention Extremities: No Clubbing, Cyanosis Skin: No Rash or Ulcers Neurological: - - Alert, oriented to self (answered incorrectly for birthday, place, time, year) Lines/Tubes/Other Access: Clean, Dry and Intact Peripheral IV Nutrition: Taking PO's Result Diagrams: 10/06/19 05:13 10/06/19 05:13 Microbiology and Other Data: Microbiology 10/05/19 23:43 Stool Occult Blood (MARIOLA) - Final Stool 10/04/19 20:08 Aerobic Blood Culture - Preliminary Blood Venous No Growth Day 1 Anaerobic Blood Culture - Preliminary No Growth Day 1 10/04/19 20:08 Aerobic Blood Culture - Preliminary Blood Venous No Growth Day 1 Anaerobic Blood Culture - Preliminary No Growth Day 1 Assess/Plan/Problems-Billing Assessment: Ms. Blanton is a 79yof PMHx myelodysplastic syndrome, HTN, anemia, L breast cancer in 2012, who presented to the ER with fever. - Patient Problems (1) Fever Current Visit: Yes Status: Acute Code(s): R50.9 - FEVER, UNSPECIFIED Comment: -Tmax 100.5 during hospitalization -flu negative -UA ordered; not yet completed, though she is being treated with ceftriaxone and previous urine culture from last week was negative -CXR: large HH without signs of anemia -broad spectrum coverage with ctx, azithro (2) Anemia Code(s): D64.9 - ANEMIA, UNSPECIFIED Comment: -asymptomatic with hgb at 7.2 -denies melena, jamila blood -stool for blood ordered and is negative on 10/04 -likely d/t MDS (3) Myelodysplastic syndrome Code(s): D46.9 - MYELODYSPLASTIC SYNDROME, UNSPECIFIED Comment: -follows with [facility] for myelodysplastic syndrome; has h/o L breast cancer -oncology aware of admission, will consult today (4) Hypertension Code(s): I10 - ESSENTIAL (PRIMARY) HYPERTENSION Comment: -SBP 130s-140s -continue lisinopril (5) DVT prophylaxis Code(s): Z29.9 - ENCOUNTER FOR PROPHYLACTIC MEASURES, UNSPECIFIED Comment: -platelets <100 (81 today) and concern that they will dip below 50 in setting of infection -will hold on chemoprophylaxis at this time and continue to monitor platelets -SCDs (6) Full code status Code(s): Z78.9 - OTHER SPECIFIED HEALTH STATUS Status and Disposition: Inpatient. Discharge when stable, possibly today if home supports in place. Attending: Mana Jaramillo
[2019-10-06] MEDS: Calcium/Vitamin D TAB 250/125* TAB PO SCH (10:09)
[2019-10-06] MEDS: Hydrochlorothiazide TAB* 25 MG PO SCH (10:09)
[2019-10-06] MEDS: Docusate CAP* 100 MG PO SCH (10:09)
--- NOTE | 2019-10-06 10:28 | PN ---
Progress Note - Progress Note Date of Service: 10/06/19 SOAP: Subjective: [Doing well. Reports no cough or SOB. Would very much like to get home. ] Objective: [ Vital Signs: Temp Pulse Resp BP Pulse Ox 98.8 F 97 20 146/68 97 10/06/19 07:15 10/06/19 07:15 10/06/19 07:15 10/06/19 07:15 10/06/19 07:15 Acetaminophen (Tylenol Tab*) 650 mg PO Q4H PRN PRN Reason: MILD PAIN or TEMP > 100.4 Al Hydrox/Mg Hydrox/Simethicone (Maalox Plus*) 30 ml PO Q6H PRN PRN Reason: INDIGESTION Calcium/Vitamin D (Oscal D Tab 250/125*) 2 tab PO BID [facility] Last Admin: 10/06/19 10:09 Dose: 2 tab Cyclobenzaprine HCl (Flexeril Tab*) 5 mg PO BEDTIME [facility]; Protocol Last Admin: 10/05/19 22:15 Dose: 5 mg Docusate Sodium (Colace Cap*) 100 mg PO BID [facility] Last Admin: 10/06/19 10:09 Dose: 100 mg Hydrochlorothiazide (Hydrodiuril Tab*) 12.5 mg PO DAILY [facility] Last Admin: 10/06/19 10:09 Dose: 12.5 mg Sodium Chloride (Ns 0.9% 1000 Ml) 1,000 mls @ 125 mls/hr IV PER RATE [facility] Last Admin: 10/06/19 00:54 Dose: 125 mls/hr Ceftriaxone Sodium 1 gm/ (Sodium Chloride) 50 mls @ 100 mls/hr IVPB Q24H [facility] Last Admin: 10/05/19 23:47 Dose: 100 mls/hr Azithromycin (Zithromax 500 Mg/250 Ml) 500 mg in 250 mls @ 250 mls/hr IVPB Q24H [facility] Last Admin: 10/05/19 21:43 Dose: 250 mls/hr Lisinopril (Prinivil Tab*) 10 mg PO DAILY [facility]; Protocol Last Admin: 10/06/19 10:09 Dose: 10 mg Ondansetron HCl (Zofran Inj*) 4 mg IV Q4H PRN PRN Reason: NAUSEA/VOMITING Laboratory Results - last 24 hr 10/06/19 10/06/19 05:13 05:13 WBC 2.0 L RBC 2.18 L Hgb 7.2 L Hct 21 L MCV 98 H MCH 33 H MCHC 34 RDW 29 H Plt Count 81 L MPV 8.0 Neut % (Auto) 64.0 Lymph % (Auto) 34.3 Crowley % (Auto) 0.4 Eos % (Auto) 0.4 Baso % (Auto) 0.9 Absolute Neuts (auto) 1.3 L Absolute Lymphs (auto) 0.7 L Absolute Monos (auto) 0.0 Absolute Eos (auto) 0.0 Absolute Basos (auto) 0.0 Absolute Nucleated RBC 0.0 Nucleated RBC % 0.7 Anisocytosis 2+ Macrocytosis 1+ Sodium 137 Potassium 3.6 Chloride 107 Carbon Dioxide 23 Anion Gap 7 BUN 10 Creatinine 0.66 Est GFR ( Amer) 104.8 Est GFR (Non-Af Amer) 86.6 BUN/Creatinine Ratio 15.2 Glucose 108 H Calcium 8.2 L Exam: Gen: Chronically ill appearing 79 yo female in NAD HEENT: MMM CV: RRR, no m/r/g Resp: CTA, no w/c/r Abd: soft, nonTTP Ext: trace edema Psych: alert, easily confused but follows conversation and directions appropriately Assessment: [This is a 79 yo female with MDS under the care of Dr Sheikh treated with azacitadine and aranesp who presented with fever, cough and malaise found to have a LLL infiltrate. She has been treated for CAP and clinically improving. ] Plan: [1. PNA - management per hospitalist team - appears clinically improved and likely appropriate for dc 2. MDS - associated pancytopenia - ANC remains >1000 - recommend 1U PRBCs today and transfuse for Hgb <8 g/dl or symptomatic and less than 9 g/dl - C2D1 azacitadine 09/18 and aranesp was given 10/02 with plans to cont q 2 weeks 3. Dementia - mild to moderate dementia at baseline - appears near baseline mental status on today's exam - is very attentive to her care and has support from their 3 daughters dispo: dc plan per hospitalist, ok for dc from oncology perspective. Will follow up with her Wednesday in the oncology clinic.]
[2019-10-06] MEDS ORDERED: Azithromycin TAB* 250 MG PO SCH (14:00)
[2019-10-06 14:37] VITALS: BP 129/58
--- NOTE | 2019-10-07 01:38 | DS ---
CC: Dr. Astrid Michelle * DISCHARGE SUMMARY: DATE OF ADMISSION: 10/04/19 DATE OF DISCHARGE: 10/06/19 PRIMARY CARE PHYSICIAN: Dr. Astrid Michelle. PROVIDER: Bill Aguilar NP. ATTENDING PHYSICIAN: Dr. Mana Jaramillo * (dictated by Bill Aguilar NP). OUTPATIENT ONCOLOGIST: Dr. Sanjay James. PRIMARY DISCHARGE DIAGNOSES: 1. Left lower lobe pneumonia. 2. Anemia secondary to myelodysplastic syndrome. SECONDARY DISCHARGE DIAGNOSES: 1. Breast cancer, status post chemoradiation. 2. Myelodysplastic syndrome. 3. Hypertension. HOME MEDICATIONS AT DISCHARGE: 1. Lisinopril/hydrochlorothiazide 10/12.5 mg 1 tab daily. 2. Caltrate 600+D soft chew 1 chew b.i.d. 3. Acetaminophen 650 q.6 hours p.r.n. 4. Multivitamin 1 tab daily. 5. Cyclobenzaprine 500 mg at bedtime. 6. Cefuroxime 500 mg b.i.d. x5 additional days. This is a new medication sent to the patient's pharmacy. 7. Azithromycin 250 mg daily x2 additional days. Again, this is a new medication sent to the patient's pharmacy. HOSPITAL COURSE: For full details, please refer to the H and P provided by Dr. Pennington on 10/04/19. In summary, this is a 79-year-old female who presented to the ER with concern for fever, weakness, and drowsiness. She was noted to be hypoxic. Chest x-ray revealed left lower lobe pneumonia. She was admitted to the inpatient unit and was given antibiotics and additional support with IV hydration. She was also noted to be pancytopenic secondary to recent chemotherapy. Her neutrophil count stayed above 1000. She appropriately improved with antibiotics and supportive care. She is eating and ambulating per her baseline. She was noted to have increased confusion but appears to be improving to baseline per her family. She is cared for by her family at home and at baseline is noted to have some mild cognitive impairment secondary to dementia, but she appears to be no worse than usual. Family expressed that they are comfortable taking her home and requested to do so as she was getting more agitated by being here in the hospital. She was seen by Oncology prior to discharge and recommendations were appreciated. She was advised to follow up next week in the oncology office and an appointment was made for 10/09/19 at 1: 40 p.m. Prior to discharge, she was recommended to get 1 unit of packed red blood cells which she received prior to discharge and she tolerated this well. She will continue to receive her Aranesp and follow up with CINDY. OUTPATIENT FOLLOWUP: Again, she should follow up with Oncology as indicated and follow up with her PCP Dr. Michelle within 7 to 10 days. ACTIVITY: As tolerated. DIET: She may resume her previous diet. CONDITION: Stable. DISPOSITION: To home. TIME SPENT: Approximately 40 minutes. Again this is only a brief summary of the patient's hospital course of stay. For full details, please refer to full medical record. If you have any further questions, please feel free to contact me at [phone]. BILL AGUILAR NP [id number]/LILI #: [id number] RICHIE
== END 2019-10-06 17:55 | disposition home or self-care (01) | DRG 193 ==
LOC: ED 16:43 → MED 22:03
PROVIDERS: ADMIT Family Medicine; ATTEND Internal Medicine
PROC: 30233N1 Transfusion of Nonautologous Red Blood Cells into Peripheral Vein, Percutaneous Approach (ICD-10-PCS; principal; 2019-10-06)
DX: J18.9 Pneumonia, unspecified organism (principal); D61.810 Antineoplastic chemotherapy induced pancytopenia; F03.91 Unspecified dementia, unspecified severity, with behavioral disturbance; D46.9 Myelodysplastic syndrome, unspecified; I10 Essential (primary) hypertension; T45.1X5A Adverse effect of antineoplastic and immunosuppressive drugs, initial encounter; G31.84 Mild cognitive impairment of uncertain or unknown etiology; C50.919 Malignant neoplasm of unspecified site of unspecified female breast; Z92.3 Personal history of irradiation; Y92.9 Unspecified place or not applicable; F03.90 Unspecified dementia, unspecified severity, without behavioral disturbance, psychotic disturbance, mood disturbance, and anxiety; Z79.899 Other long term (current) drug therapy; Z92.21 Personal history of antineoplastic chemotherapy; M62.838 Other muscle spasm
CPT/HCPCS: 36415; 71046; 80048; 80053; 82270; 83605; 85025; 86140; 86850; 86900; 86901; 86922; 87040; 99232; 99284; A9270-GY; J0456; J0696; J1650; P9040

== ENCOUNTER 2019-10-10 08:57 | Inpatient (IN) | payer MEDICARE, BC ==
--- NOTE | 2019-10-10 09:03 | ED ---
Head Injury - HPI Summary HPI Summary: Patient is a 79 y/o F arriving by ambulance to [facility] accompanied by with a chief complaint of fall with occipital head injury. Per EMS, the patient had been sitting on the toilet and fell because the arm rest had broken. Her found that she had fallen and hit her head on the nearby cabinet with an abrasion to the occipital head. She states she doesnt remember falling, but she remembers sitting on the toilet. She denies any neck pain, headache, CP, SOB , abd pain, vomiting, diarrhea, dysuria. Her reports that the patient has been more fatigued with increased sleeping. She was recently admitted to the hospital for LLL PNA on 10/04/2019, discharged on 10/06/2019 with Cefuroxime and Azithromycin. Patient has breast cancer with chemoradiation completed, but her states the medication she is taking has worsened her confusion and led to early onset dementia. Oncologist is Dr. Sheikh. She had been admitted to [facility] on 10/04/2019 for LLL PNA. Past medical history includes myelodysplastic syndrome, HTN, anemia. Nonsmoker, no EtOH, no substance use. Medications reviewed. Allergies noted. LEVEL 5 CAVEAT. PATIENT POOR HISTORIAN/EARLY ONSET DEMENTIA. History obtained from EMS and . - History Of Current Complaint Stated Complaint: FALL HEAD LAC Hx Obtained From: Patient - able to answer yes/no questions, Family/[employer] - , EMS Hx From Patient Unobtainable Due To: Other - Level 5 caveat, patient poor historian/early onset dementia Mechanism Of Injury: Other - fall while sitting on toilet Onset/Duration: Traumatic Severity Currently: Mild Severity Initially: Moderate Pain Intensity: 0 Pain Scale Used: 0-10 Numeric Location of Head Injury: Occipital Associated Signs And Symptoms: Confusion, Other: - Negative: neck pain, headache , CP, SOB, diarrhea, dysuria, abd pain, vomiting - Allergies/Home Medications Allergies/Adverse Reactions: Allergies Allergy/AdvReac Type Severity Reaction Status Date / Time No Known Allergies Allergy Verified 07/07/19 15:21 Home Medications: Home Medications Calcium Carbonate/Vitamin D3 [Caltrate 600 + D Soft Chew Tab] 1 tab PO DAILY [History Confirmed 10/10/19] Multivit-Min/Iron/Folic/Lutein [Centrum Silver Women Tablet] 1 each PO DAILY 04/14 [History Confirmed 10/10/19] Cyanocobalamin TAB* [Vitamin B12 TAB*] 250 mcg PO DAILY 10/10/19 [History Confirmed 10/10/19] Ferrous Sulfate TAB* 325 mg PO BID 10/10/19 [History Confirmed 10/10/19] PMH/Surg Hx/FS Hx/Imm Hx Endocrine/Hematology History: Reports: Hx Blood Disorders - Precancerous, Hx Anemia - r/t myelodysplastic syndrome Denies: Hx Diabetes Cardiovascular History: Reports: Hx Hypertension Denies: Hx Hypercholesterolemia Musculoskeletal History: Reports: Hx Arthritis Denies: Hx Osteoporosis Sensory History: Reports: Hx Contacts or Glasses Denies: Hx Legally Blind, Hx Deafness, Hx Hearing Aid Opthamlomology History: Reports: Hx Contacts or Glasses Denies: Hx Legally Blind - Cancer History Cancer Type, Location and Year: Precancerous blood disorder, breast cancer with MDS Hx Hematologic Symptoms: Yes Hx Chemotherapy: Yes - Surgical History Surgical History: Yes Surgery Procedure, Year, and Place: TONSILLECTOMY - Family History Known Family History: Negative: Cardiac Disease - Social History Alcohol Use: None Hx Substance Use: No Substance Use Type: Reports: None Hx Tobacco Use: No Smoking Status (MU): Never Smoked Tobacco Review of Systems Negative: Chest Pain Negative: Shortness Of Breath Negative: Vomiting, Diarrhea Negative: dysuria Negative: Myalgia - neck pain Positive: Other - abrasion to occipital Neurological/Mental Status: Other - head injury, confusion Negative: Headache All Other Systems Reviewed And Are Negative: No - Comments Additional Review of Systems Comments: LEVEL 5 CAVEAT, secondary to patient being poor historian/early onset dementia. Physical Exam - Summary Physical Exam Summary: Constitutional: Well-developed, Well-nourished, Alert. Appears sedated. (-) Distressed Skin: Warm, Dry HENT: Normocephalic; Small abrasion over occiput, No active bleeding Eyes: Conjunctiva normal Neck: Musculoskeletal ROM normal neck. (-) JVD, (-) Stridor, (-) Tracheal deviation Cardio: Rhythm regular, rate normal, Heart sounds normal; Intact distal pulses; The pedal pulses are 2+ and symmetric. Radial pulses are 2+ and symmetric. (-) Murmur Pulmonary/Chest wall: Effort normal. (-) Respiratory distress, (-) Wheezes, (-) Rales Abd: Soft, (-) tenderness, (-) Distension, (-) Guarding, (-) Rebound Musculoskeletal: (-) Edema Lymph: (-) Cervical adenopathy Neuro: Alert, Oriented x2, No focal deficits, GCS: 15 Psych: Mood and affect Normal Triage Information Reviewed: Yes Vital Signs Reviewed: Yes Completion Of Physical Exam Limited Due To: Level 5 - poor historian/early onset dementia - [place] Coma Scale Best Eye Response: 4 - Spontaneous Best Motor Response: 6 - Obeys Commands Best Verbal Response: 5 - Oriented Coma Scale Total: 15 Procedures - Sedation Patient Received Moderate/Deep Sedation with Procedure: No Diagnostics - Laboratory Result Diagrams: 10/10/19 09:35 10/10/19 09:35 Lab Statement: Any lab studies that have been ordered have been reviewed, and results considered in the medical decision making process. - Radiology CXR Radiology Interpretation Completed By: Radiologist Summary of Radiographic Findings: Impression: Consolidation of the left lower lung with a small left pleural effusion. Dr. Ignacio has reviewed this report. - CT Brain CT CT Interpretation Completed By: Radiologist Summary of CT Findings: Impression: No acute intracranial pathology. Dr. Ignacio has reviewed this report. - EKG 0932 Cardiac Rate: NL - 91 BPM EKG Rhythm: Sinus Rhythm Summary of EKG Findings: An EKG at 0932 reveals sinus rhythm at rate of [address]PM[address] No ischemic changes. Dr. Ignacio has reviewed and interpreted this EKG. Re-Evaluation - Re-Evaluation First Eval Re-Evaluation Time: 10:45 Comment: Patient's agreeable with admission. Head Injury Course/Dx Course Of Treatment: Patient is a 79 y/o F arriving by ambulance after a mechanical fall resulting in an abrasion to the occipital head. Patient doesnt remember falling, but she denies any neck pain, headache, CP, SOB, abd pain, vomiting, diarrhea, dysuria. notes increasing fatigue and confusion with breast cancer medications. No anticoagulants. History of breast cancer, myelodysplastic syndrome, HTN, anemia. The patient appears sedated, no acute distress. There is a small abrasion over the occiput without active bleeding. Patient is alert & oriented x2, no focal neurological deficits. IV access obtained. Blood work shows WBCs 2.6, chronic anemia with RBCs 2.57, hemoglobin 8.4, hematocrit 25, RDW 27, absolute lymphocytes 0.2, glucose 147, calcium 8.2, magnesium 1.8, total protein 6.1, albumin 2.8, BNP 374, INR 1.42. Troponin 0.37. An EKG at 0932 reveals sinus rhythm at rate of 91 BPM, no ischemic changes. CXR shows LLL PNA. Brain CT is negative for acute findings. Dr. Sheikh, who is the patients oncologist, accepts the patient for admission. All results discussed with patient's . He is agreeable with plan. - Diagnoses Provider Diagnoses: Weakness, Fall, Scalp abrasion, Chronic anemia, Elevated troponin, Pleural effusion, left, Left lower lobe pneumonia - Physician Notifications Discussed Care Of Patient With: Michael Sheikh - oncology Time Discussed With Above Provider: 10:35 Instructed by Provider To: Other - I discussed the patients case with Dr. Sheikh , and he accepts the patient for admission. Discharge ED - Sign-Out/Discharge Documenting (check all that apply): Patient Departure - Patient accepted for admission by Dr. Sheikh. - Discharge Plan Condition: Stable Disposition: ADMITTED TO [facility] - Billing Disposition and Condition Condition: STABLE Disposition: Admitted to [facility] - Attestation Statements Document Initiated by Justin: Yes Documenting Scribe: Mary Jaquez Provider For Whom Justin is Documenting (Include Credential): Andrea Ignacio DO Scribvinay Attestation: Mary Rodarte, scribed for Andrea Ignacio DO on 10/10/19 at 1450. Scribe Documentation Reviewed: Yes Provider Attestation: The documentation as recorded by the Mary campuzano accurately reflects the service I personally performed and the decisions made by me, Andrae Ignacio DO Status of Scrmilady Document: Viewed
[2019-10-10 09:51] LABS: ABS Lymphocytes 0.2 10^3/ul (1.0-4.8); ABS Neutrophils 2.4 10^3/ul (1.5-7.7); Eosinophil % 0.1 %; Hematocrit 25 % (35-47); Hemoglobin 8.4 g/dL (12.0-16.0); Lymphocyte % 9.5 %; Mean Corpuscular HGB Conc 34 g/dL (31-36); Mean Corpuscular Hemoglobin 33 pg (27-31); Mean Corpuscular Volume 98 fL (80-97); Nucleated Red Blood Cells % 0.4; Platelet Count 153 10^3/uL (150-450); Red Blood Count 2.57 10^6 /uL (3.70-4.87); Red Cell Distribution Width 27 % (10-15); White Blood Count 2.6 10^3/uL (3.5-10.8)
[2019-10-10 10:07] LABS: ALT 47 U/L (7-52); AST 41 U/L (13-39); Albumin 2.8 g/dL (3.2-5.2); Albumin/Globulin Ratio 0.8 (1-3); Alkaline Phosphatase 56 U/L (34-104); Anion Gap 7 mmol/L (2-11); BUN/Creatinine Ratio 24.6 (8-20); Blood Urea Nitrogen 16 mg/dL (6-24); CO2 Carbon Dioxide 24 mmol/L (22-32); Calcium 8.2 mg/dL (8.6-10.3); Chloride 105 mmol/L (101-111); EGFR African American 106.7 (>60); EGFR Non-African American 88.2 (>60); Globulin 3.3 g/dL (2-4); Glucose 147 mg/dL (70-100); Magnesium 1.8 mg/dL (1.9-2.7); Sodium 136 mmol/L (135-145); Total Protein 6.1 g/dL (6.4-8.9)
[2019-10-10 10:13] LABS: Troponin I 0.37 ng/mL (<0.03)
[2019-10-10] MEDS ORDERED: Piperacillin/Tazobac ADVAN(*) 3.375 GM in NS 0.9% 100 ML* 100 ML IVPB ONE ×2 (11:17→11:29)
[2019-10-10] MEDS ORDERED: NS 0.9% 1000 ML** 1,000 ML IV ONE (11:17)
[2019-10-10] MEDS ORDERED: Ondansetron ODT TAB* 4 MG SL PRN (11:29)
[2019-10-10 11:32] LABS: Activated Partial Thrombo Time 27.3 seconds (26.0-38.0); INR 1.42 (0.82-1.09)
[2019-10-10] MEDS: NS 0.9% 1000 ML** 1,000 ML IV SCH (13:36)
[2019-10-10] MEDS ORDERED: Perflutren Lipid Microsphere* 3 ML VIAL ONE (14:02)
--- NOTE | 2019-10-10 15:16 | ECHO ---
*[facility]* [place] [address] Fax #: [phone] Transthoracic Echocardiogram Patient: Laura Blanton : 1940 Study Date: 10/10/2019 Age: 79 Gender: F HR: 83 bpm Height: 67 in /170.2 cm BSA: 2.04 m^2 Weight: 204.6 lb /93 kg BMI: 32.1 kg/m^2 *Principal Security Architect: * Monica Mtz [facility] *Referring Physician: * Wendy CapellanReading Physician: * Rich Mccloud MD Indications: Myocardial Infarction (new). History: Breast cancer, myelodysplastic syndrome, chemotherapy, recent fall. Risk factors: Hypertension. Conclusions Summary: - Left ventricle: The cavity size is mildly to moderately dilated. Wall thickness is mildly to moderately increased. Systolic function is at the lower limits of normal. The estimated ejection fraction is 50-55%. Hypokinesis of the apicallateral and apical myocardium. - Mitral valve: There is mild regurgitation. - Aortic valve: There is no evidence of stenosis. - Tricuspid valve: There is mild-moderate regurgitation. - Pulmonary arteries: Systolic pressure is moderately increased. Estimated PASP 50-55 mmHg - Study data: No prior study is available for comparison. Study data: Transthoracic echocardiogram. Procedure: Transthoracic echocardiography was performed. Image quality was fair. Intravenous Definity , 2 mlswas administered. Complete 2D, spectral Doppler, and color flow Doppler. Location: Bedside. Patient status: Inpatient. Patient room number: 449 02. No prior study is available for comparison. Rhythm: Normal sinus rhythm. Findings Left ventricle: The cavity size is mildly to moderately dilated. Wall thickness is mildly to moderately increased. Systolic function is at the lower limits of normal. The estimated ejection fraction is 50-55%. Regional wall motion abnormalities: Hypokinesis of the apicallateral and apical myocardium. Doppler parameters are consistent with abnormal left ventricular relaxation (grade 1 diastolic dysfunction). Right ventricle: The cavity size is normal. Wall thickness is increased. Systolic function is normal. Left atrium: The atrium is at the upper limits of normal in size. Right atrium: The atrium is normal in size. Mitral valve: The leaflets are mildly thickened. There is no evidence of stenosis. There is mild regurgitation. Aortic valve: The valve is trileaflet. The leaflets are mildly thickened. There is no evidence of stenosis. There is no significant regurgitation. Tricuspid valve: The leaflets are normal thickness. There is no evidence of stenosis. There is mild-moderate regurgitation. Pulmonic valve: The leaflets are normal thickness. There is no evidence of stenosis. There is trace regurgitation. Aorta: The aortic root appears normal. The aortic arch appears normal. Pericardium: There is no significant pericardial effusion. Pulmonary arteries: Systolic pressure is moderately increased. Systemic veins: Inferior vena cava: The vessel is dilated. There is (>= 50%) respiratory change in the IVC dimension. Measurements Left ventricle Value Ref Mitral valve Value Ref ANA, LAX (H) 5.9 cm 3.8 - 5.2 Peak E 1.53 m/sec ------- ESD, LAX (H) 4.2 cm 2.2 - 3.5 Peak A 1.97 m/sec ------- FS, LAX 29 % 27 - 45 Decel time 206 ms ------- PW, ED, LAX (H) 1.2 cm 0.6 - 0.9 PHT 66 ms ------- E', lat molly, TDI (L) 5.4 cm/sec >=10.0 Mean grad, D 6.0 mm Hg ------- E/e', lat molly, 28 Peak grad, D 18.0 mm Hg --- ---- TDI Peak E/A ratio 0.8 ------- E', med molly, TDI (L) 4.6 cm/sec >=7.0 MVA, PHT 3.3 cm^2 ------- E/e', med molly, 33 TDI Pulmonic valve Value Ref E', avg, TDI 5.0 cm/sec Peak v, S 0.7 m/sec --- ---- E/e', avg, TDI (H) 31 <=14 Peak grad, S 2.0 mm Hg ------- LVOT Value Ref Tricuspid valve Value Ref Peak bety, S 0.89 m/sec TR peak v (H) 3.3 m/sec <=2.8 Mean grad, S 2 mm Hg Peak RV-RA grad, S 44 mm Hg ------- Ventricular septum Value Ref Aortic root Value Ref IVS, ED (H) 1.3 cm 0.6 - 0.9 Root diam 2.9 cm <4.2 Root max diam/bsa, 1.4 cm/m^2 1.4 - Right ventricle Value Ref ED 2.2 ANA, LAX 2.7 cm ANA minor ax, A4C (H) 3.6 cm 1.9 - 3.5 Ascending aorta Value Ref mid AAo AP diam, S 2.9 cm ------- Pressure, S 47 mm Hg AAo AP diam/bsa, S 1.4 cm/m^2 ------- Left atrium Value Ref Aortic arch Value Ref AP dim, ES 3.70 cm 2.70 - Arch diam 3.4 cm ------- 3.80 Arch diam/bsa 1.7 cm/m^2 ------- ML dim, A4C 4.6 cm SI dim, A4C 5.1 cm Decending aorta Value Ref Susanna peak bety 0.58 m/sec ------- Right atrium Value Ref SI dim, ES 4.1 cm 3.4 - 5.3 Pulmonary artery Value Ref ML dim, ES, A4C 3.5 cm 2.6 - 4.4 Pressure, S 45.0 mm Hg ------- Estimated RAP 3 mm Hg Inferior vena cava Value Ref Aortic valve Value Ref Diam 2.3 cm ------- Molly diam, ED 2.2 cm Peak v, S 1.59 m/sec VTI, S 31.7 cm Mean grad, S 6.0 mm Hg Peak grad, S 10.0 mm Hg Legend: (L) and (H) amisha values outside specified reference range. Prepared and electronically signed by Rich Mccloud MD 10/10/2019 15:16
[2019-10-10] MEDS ORDERED: Zosyn per Pharmacy* NOTE FOLLOW UP SCH (15:30)
[2019-10-10 15:32] LABS: Troponin I 0.35 ng/mL (<0.03)
[2019-10-10] MEDS: ZOSYN 3.375 GM Q8H per EXTENDED INFUSION IVPB SCH ×4 (15:54→23:46)
[2019-10-10] MEDS: Heparin VIAL(*) 5000 UNITS/ML VIAL (FIVE THOUSAND) SUBCUT SCH ×2 (16:03→22:03)
[2019-10-10 16:49] LABS: Urine Appearance Cloudy; Urine Bilirubin Negative (Negative); Urine Blood Negative (Negative); Urine Color Yellow; Urine Glucose 1+(50 mg/dL) (Negative); Urine Ketones Trace (Negative); Urine Nitrite Negative (Negative); Urine Protein 1+(30 mg/dL) (Negative); Urine Specific Gravity 1.023 (1.010-1.030); Urine Urobilinogen Negative (Negative)
[2019-10-10 16:53] LABS: Urine Bacteria Absent (Absent); Urine Red Blood Cell Absent (Absent); Urine Squamous Epithelial Cell Present (Absent); Urine White Blood Cell Trace(0-5/hpf) (Absent)
[2019-10-10 18:29] LABS: Troponin I 0.34 ng/mL (<0.03)
[2019-10-10 21:19] LABS: Troponin I 0.31 ng/mL (<0.03)
[2019-10-11 00:29] LABS: Troponin I 0.42 ng/mL (<0.03)
[2019-10-11] MEDS ORDERED: LORazepam TAB(*) 0.5 MG PO PRN (01:32)
[2019-10-11] MEDS: Aspirin TAB* 325 MG PO SCH ×2 (03:24→07:26)
[2019-10-11] MEDS: NS 0.9% 1000 ML** 1,000 ML IV SCH (04:14)
[2019-10-11 04:35] LABS: Hematocrit 22 % (35-47); Hemoglobin 7.5 g/dL (12.0-16.0); Mean Corpuscular HGB Conc 35 g/dL (31-36); Mean Corpuscular Hemoglobin 34 pg (27-31); Mean Corpuscular Volume 98 fL (80-97); Mean Platelet Volume 8.6 fL (7.4-10.4); Platelet Count 162 10^3/uL (150-450); Red Blood Count 2.21 10^6 /uL (3.70-4.87); Red Cell Distribution Width 27 % (10-15); White Blood Count 2.4 10^3/uL (3.5-10.8)
[2019-10-11 04:56] LABS: ALT 50 U/L (7-52); AST 46 U/L (13-39); Albumin 2.5 g/dL (3.2-5.2); Albumin/Globulin Ratio 0.8 (1-3); Alkaline Phosphatase 53 U/L (34-104); Anion Gap 6 mmol/L (2-11); BUN/Creatinine Ratio 20.3 (8-20); Blood Urea Nitrogen 14 mg/dL (6-24); CO2 Carbon Dioxide 23 mmol/L (22-32); Calcium 7.8 mg/dL (8.6-10.3); Chloride 110 mmol/L (101-111); EGFR African American 99.6 (>60); EGFR Non-African American 82.3 (>60); Globulin 3.2 g/dL (2-4); Glucose 117 mg/dL (70-100); Potassium 3.9 mmol/L (3.5-5.0); Sodium 139 mmol/L (135-145); Total Protein 5.7 g/dL (6.4-8.9)
[2019-10-11 05:02] LABS: Troponin I 0.53 ng/mL (<0.03)
[2019-10-11 05:04] LABS: Microcytosis 2+; Tear Drop Cells 1+
[2019-10-11 05:05] LABS: ABS Lymphocytes 0.5 10^3/ul (1.0-4.8); ABS Neutrophils 1.8 10^3/ul (1.5-7.7); Eosinophil % 0.4 %; Lymphocyte % 22.3 %; Nucleated Red Blood Cells % 0.9
[2019-10-11] MEDS ORDERED: Metoprolol Tartrate TAB* 25 MG PO ONE (05:10)
[2019-10-11] MEDS: Heparin VIAL(*) 5000 UNITS/ML VIAL (FIVE THOUSAND) SUBCUT SCH ×3 (05:32→20:53)
[2019-10-11] MEDS: ZOSYN 3.375 GM Q8H per EXTENDED INFUSION IVPB SCH ×6 (07:26→23:33)
[2019-10-11 10:43] LABS: Troponin I 0.44 ng/mL (<0.03)
[2019-10-11] MEDS ORDERED: Furosemide IV* 10 MG/ML 2 ML VIAL (20 MG) IV SLOW PU SCH (11:00)
[2019-10-11 11:10] LABS: Cholesterol 143 mg/dL; HDL Cholesterol 31.1 mg/dL; LDL Cholesterol 95 mg/dL; Triglycerides 85 mg/dL
--- NOTE | 2019-10-11 12:00 | PN ---
Progress Note - Progress Note Date of Service: 10/11/19 SOAP: Subjective: []Admitted yesterday following a mechanical fall with head injury. CT head without hemorrage. CXR with persistent LLL pneumonia, and new elevation in troponin. Overnight her troponin continued to peak and she was started on a beta nitin. Seen this AM with , Jamshid, and Juan Antonio, MORTGAGE BROKER of cardiology. Laura denies chest pain and pressure, SOB and respiratory symptoms. She denies HAs and dizziness. Overall her notes she has simply been very sleepy the last several weeks with persistent intermittent confusion. Medications: Aspirin (Aspirin 81 Mg Chew Tab*) 81 mg PO DAILY [facility] Furosemide (Lasix Iv*) 20 mg IV SLOW PU DAILY [facility] Heparin Sodium (Porcine) (Heparin Vial(*)) 5,000 units SUBCUT Q8HR [facility] Last Admin: 10/11/19 05:32 Dose: 5,000 units Piperacillin Sod/Tazobactam (Sod 3.375 gm/ Sodium Chloride) 100 mls @ 25 mls/ hr IVPB Q8H [facility] Last Admin: 10/11/19 07:26 Dose: 25 mls/hr Lorazepam (Ativan Tab(*)) 0.5 mg PO ONCE PRN PRN Reason: AGITATION Metoprolol Tartrate (Lopressor Tab*) 12.5 mg PO Q12H [facility] Ondansetron HCl (Zofran Odt Tab*) 4 mg SL Q6H PRN PRN Reason: NAUSEA/VOMITING Pharmacy Consult (Zosyn Per Pharmacy*) 1 note FOLLOW UP .ZOSYN PER PHARMACY [facility] Objective: [] Vital Signs Temp Pulse Resp BP Pulse Ox 98.4 F 111 20 129/65 94 10/11/19 11:01 10/11/19 11:01 10/11/19 11:01 10/11/19 11:01 10/11/19 11:01 A&O to self and place, not time Somewhat disoriented to situation, but able to engage in conversation and plan of care HRR, S1S2 LS dim. on Left base, Right clear, no wheeze or rhonchi +BS, abd. soft and non-tender Trace ankle edema Laboratory Results - last 24 hr 10/10/19 10/10/19 10/10/19 09:35 14:58 16:30 WBC 2.6 L RBC 2.57 L Hgb 8.4 L Hct 25 L MCV 98 H MCH 33 H MCHC 34 RDW 27 H Plt Count 153 MPV 8.0 Neut % (Auto) 89.5 Lymph % (Auto) 9.5 [place] % (Auto) 0.4 Eos % (Auto) 0.1 Baso % (Auto) 0.5 Absolute Neuts (auto) 2.4 Absolute Lymphs (auto) 0.2 L Absolute Monos (auto) 0.0 Absolute Eos (auto) 0.0 Absolute Basos (auto) 0.0 Absolute Nucleated RBC 0.0 Immature Gran % 2.0 Neutrophils % 86.0 Band Neutrophils % 2.0 Lymphocytes % 10.0 Monocytes % 2.0 Nucleated RBC % 0.4 Nucleated RBCs/100 WBC 1.0 H Normal RBC Morphology Anisocytosis 3+ Microcytosis Macrocytosis Tear Drop Cells Elliptocytes Hem Pathologist Commnt Sodium Potassium Chloride Carbon Dioxide Anion Gap BUN Creatinine Est GFR ( Amer) Est GFR (Non-Af Amer) BUN/Creatinine Ratio Glucose Calcium Total Bilirubin AST ALT Alkaline Phosphatase Troponin I 0.35 H* Total Protein Albumin Globulin Albumin/Globulin Ratio Triglycerides Cholesterol LDL Cholesterol HDL Cholesterol Urine Color Yellow Urine Appearance Cloudy Urine pH 6.0 Ur Specific [place] 1.023 Urine Protein 1+(30 mg/dl) A Urine Ketones Trace A Urine Blood Negative Urine Nitrate Negative Urine Bilirubin Negative Urine Urobilinogen Negative Ur Leukocyte Esterase Negative Urine WBC (Auto) Trace(0-5/hpf) Urine RBC (Auto) Absent Ur Squamous Epith Cells Present A Amorphous Crystals Present A Urine Bacteria Absent Urine Glucose 1+(50 mg/dl) A Urine Ascorbic Acid * A Blood Type Crossmatch 10/10/19 10/10/19 10/11/19 17:57 20:54 00:00 WBC RBC Hgb Hct MCV MCH MCHC RDW Plt Count MPV Neut % (Auto) Lymph % (Auto) [place] % (Auto) Eos % (Auto) Baso % (Auto) Absolute Neuts (auto) Absolute Lymphs (auto) Absolute Monos (auto) Absolute Eos (auto) Absolute Basos (auto) Absolute Nucleated RBC Immature Gran % Neutrophils % Band Neutrophils % Lymphocytes % Monocytes % Nucleated RBC % Nucleated RBCs/100 WBC Normal RBC Morphology Anisocytosis Microcytosis Macrocytosis Tear Drop Cells Elliptocytes Hem Pathologist Commnt Sodium Potassium Chloride Carbon Dioxide Anion Gap BUN Creatinine Est GFR ( Amer) Est GFR (Non-Af Amer) BUN/Creatinine Ratio Glucose Calcium Total Bilirubin AST ALT Alkaline Phosphatase Troponin I 0.34 H* 0.31 H* 0.42 H* Total Protein Albumin Globulin Albumin/Globulin Ratio Triglycerides Cholesterol LDL Cholesterol HDL Cholesterol Urine Color Urine Appearance Urine pH Ur Specific [place] Urine Protein Urine Ketones Urine Blood Urine Nitrate Urine Bilirubin Urine Urobilinogen Ur Leukocyte Esterase Urine WBC (Auto) Urine RBC (Auto) Ur Squamous Epith Cells Amorphous Crystals Urine Bacteria Urine Glucose Urine Ascorbic Acid Blood Type Crossmatch 10/11/19 10/11/19 10/11/19 04:17 04:23 04:23 WBC 2.4 L RBC 2.21 L Hgb 7.5 L Hct 22 L MCV 98 H MCH 34 H MCHC 35 RDW 27 H Plt Count 162 MPV 8.6 Neut % (Auto) 74.8 Lymph % (Auto) 22.3 [place] % (Auto) 0.5 Eos % (Auto) 0.4 Baso % (Auto) 2.0 Absolute Neuts (auto) 1.8 Absolute Lymphs (auto) 0.5 L Absolute Monos (auto) 0.0 Absolute Eos (auto) 0.0 Absolute Basos (auto) 0.0 Absolute Nucleated RBC 0.0 Immature Gran % 1.0 Neutrophils % 67.0 Band Neutrophils % 1.0 Lymphocytes % 31.0 Monocytes % 1.0 Nucleated RBC % 0.9 Nucleated RBCs/100 WBC Normal RBC Morphology Not Reportable Anisocytosis 2+ Microcytosis 2+ Macrocytosis 1+ Tear Drop Cells 1+ Elliptocytes 1+ Hem Pathologist Commnt Sodium 139 Potassium 3.9 Chloride 110 Carbon Dioxide 23 Anion Gap 6 BUN 14 Creatinine 0.69 Est GFR ( Amer) 99.6 Est GFR (Non-Af Amer) 82.3 BUN/Creatinine Ratio 20.3 H Glucose 117 H Calcium 7.8 L Total Bilirubin 0.60 AST 46 H ALT 50 Alkaline Phosphatase 53 Troponin I 0.53 H* Total Protein 5.7 L Albumin 2.5 L Globulin 3.2 Albumin/Globulin Ratio 0.8 L Triglycerides Cholesterol LDL Cholesterol HDL Cholesterol Urine Color Urine Appearance Urine pH Ur Specific [place] Urine Protein Urine Ketones Urine Blood Urine Nitrate Urine Bilirubin Urine Urobilinogen Ur Leukocyte Esterase Urine WBC (Auto) Urine RBC (Auto) Ur Squamous Epith Cells Amorphous Crystals Urine Bacteria Urine Glucose Urine Ascorbic Acid Blood Type A Positive Crossmatch See Detail 10/11/19 10:13 WBC RBC Hgb Hct MCV MCH MCHC RDW Plt Count MPV Neut % (Auto) Lymph % (Auto) [place] % (Auto) Eos % (Auto) Baso % (Auto) Absolute Neuts (auto) Absolute Lymphs (auto) Absolute Monos (auto) Absolute Eos (auto) Absolute Basos (auto) Absolute Nucleated RBC Immature Gran % Neutrophils % Band Neutrophils % Lymphocytes % Monocytes % Nucleated RBC % Nucleated RBCs/100 WBC Normal RBC Morphology Anisocytosis Microcytosis Macrocytosis Tear Drop Cells Elliptocytes Hem Pathologist Commnt Sodium Potassium Chloride Carbon Dioxide Anion Gap BUN Creatinine Est GFR ( Amer) Est GFR (Non-Af Amer) BUN/Creatinine Ratio Glucose Calcium Total Bilirubin AST ALT Alkaline Phosphatase Troponin I 0.44 H* Total Protein Albumin Globulin Albumin/Globulin Ratio Triglycerides 85 Cholesterol 143 LDL Cholesterol 95 HDL Cholesterol 31.1 Urine Color Urine Appearance Urine pH Ur Specific [place] Urine Protein Urine Ketones Urine Blood Urine Nitrate Urine Bilirubin Urine Urobilinogen Ur Leukocyte Esterase Urine WBC (Auto) Urine RBC (Auto) Ur Squamous Epith Cells Amorphous Crystals Urine Bacteria Urine Glucose Urine Ascorbic Acid Blood Type Crossmatch Assessment: []79 yo female with MDS s/p 2 cycle of Azacitidine with improved counts. Unfortunately she has not been tolerating this therapy very well with progressive fatigue, concern for progressive dementia, and several falls. We discussed this at length. Plan: []1. Elevated Troponins: cardiology consult today - agree that she is not a good candidate for intervention therefore we will attempt to optimize her medically 2. LLL PNA: cont. Zosyn 3. MDS: plan to hold further systemic therapy for the time being - transfuse 1 unit PRBCs today for hmg <8 4. Fall: PT & OT eval. DNR/DNI signed today Dispo: pending PT eval. likely stable for d/c tomorrow following D3 antibiotics
--- NOTE | 2019-10-11 12:43 | CONS ---
CC: Dr. Astrid Michelle * CONSULTATION REPORT: DATE OF CONSULT: 10/11/19 ATTENDING PHYSICIAN: Sridevi Orellana MD * (DICTATED BY JACQUES LEMUS NP) REASON FOR CONSULT: Troponin elevation. PRIMARY PHYSICIAN: Dr. Astrid Michelle. PRIMARY HEEL EMERY BUFFER/ONCOLOGIST: Dr. Sheikh. CHIEF COMPLAINT: Status post fall striking head with troponin elevation. HISTORY OF PRESENT ILLNESS: This is a pleasant 79-year-old female patient with a notable history of myelodysplastic syndrome, breast cancer with prior chemotherapy use, iron deficiency anemia, hypertension, prior GI bleed, and dementia, who presented to [facility] on 10/10/19 at the discretion of her seo intern/oncologist, after she informed the staff at her outpatient visit that she had fallen and hit her head. Fall appears to be mechanical in nature given the patient's whom I personally spoke with states an arm rest that he thought was reinforced ended up giving out on the patient, which resulted in her fall while she was sitting on the toilet. She did not lose consciousness. CT of the head in the emergency department was negative for acute bleed. She was admitted to [address] [place] [address] due to troponin elevation. We were asked to see the patient in consultation. She denies ever experiencing chest pain. She denies dizziness, syncope, palpitations, sensation of heart racing, or shortness of breath. Her is at her bedside who assisted in history of present illness given the patient's baseline mentation abnormalities from dementia. She did have an echocardiogram updated on 10/10/19. Per report, LVEF was low normal at 50% to 55%. There was hypokinesis involving the apical lateral and apical myocardium, mild mitral insufficiency, [id number] tricuspid insufficiency, and moderate pulmonary hypertension. Upon further review of blood work, it appears that the patient has had ongoing troponemia as far back as 08/28/19. At that time, it was 0.03; when she presented to the hospital, she was 0.37 and she had plateaued around 0.30; however, this morning most recent troponin was 0.53, again she is asymptomatic at this time. Please note the right ventricular systolic function on echo was normal. Of note, she was recently admitted and treated for left lower lobe pneumonia and discharged home on 10/06/19. She reports compliance with medications. Last ischemic evaluation none. PAST MEDICAL HISTORY: 1. Iron-deficiency anemia. 2. Myelodysplastic syndrome. 3. Hiatal hernia. 4. Breast cancer. 5. Hypertension. 6. Dementia. 7. Mitral insufficiency. 8. Moderate pulmonary hypertension. 9. Prior GI bleed. PAST SURGICAL HISTORY: Includes: 1. Chemotherapy and radiation for breast cancer, last chemotherapy round was in 2019 per the patient's . 2. Lumpectomy and sentinel lymph node biopsy in March 2013. 3. Bone marrow biopsy. HOME MEDICATIONS: According to admission med rec: 1. Zofran 4 mg p.o. q.4h p.r.n. 2. Ferrous sulfate 65 mg tablets 2 tablets p.o. b.i.d. 3. Multivitamin daily. 4. Caltrate with vitamin D 600/400 mg p.o. b.i.d. 5. Vitamin B12 500 mcg p.o. daily. 6. Tylenol as needed. ALLERGIES: No known drug allergies. FAMILY HISTORY: Noncontributory. SOCIAL HISTORY: The patient is , lives home with her , who is her primary museum technician. She is listed as a full code. Denies tobacco use, alcohol use, or drug use. She ambulates independently. She is retired. REVIEW OF SYSTEMS: All systems have been reviewed and are otherwise negative except as above mentioned in the HPI. PHYSICAL EXAM: Most recent set of vital signs, temperature is 97.7, pulse 86, respirations 20, oxygenation 100% on 2 L of nasal cannula, blood pressure 123/48. General: The patient was lying upright in bed upon entering room, appears in no apparent distress with her , Lavelle, at bedside, well nourished. HEENT: Head is atraumatic, normocephalic. Oral mucosa is moist. Tongue is midline. Neck: Supple. Trachea midline. No JVD. No carotid bruits. Cardiac: Normal S1, S2. Regular rate and rhythm. No murmur, rub, or gallop noted. Lungs: Auscultated posteriorly. Diminished left greater than right base with inspiratory rales noted in left base. Respirations are nonlabored. /GI: Abdomen is obese, nontender. Normoactive bowel sounds x4. Unable to assess for hepatomegaly. Extremities: No pedal edema. No clubbing. No cyanosis. Peripheral Vascular: 3+ brachial pulse and dorsalis pedis pulse palpated bilaterally and symmetrically. DIAGNOSTIC STUDIES/LAB DATA: Blood work obtained 10/11/19: Sodium 139, potassium 3.9, chloride 110, carbon dioxide 23. BUN 14, creatinine 0.69, glucose 117, calcium 7.8. Most recent troponin was 0.53. BNP was 374. White count 2.4. INR 1.42. ECG 10/11/19 reviewed; sinus rhythm, rate 86. There is underlying artifact. She has definitive P waves, no ST segment or depression appreciated. Echocardiogram as mentioned above 10/10/19, per report LVEF 50% to 55% with apical lateral and apical hypokinesis, mild mitral insufficiency, no aortic stenosis, mild- to-moderate tricuspid insufficiency, and moderate pulmonary hypertension. Imaging: Chest x-ray 10/10/19; the patient has a small left pleural effusion with consolidation of the left lower lung. ASSESSMENT AND PLAN: 1. Left lower lobe pneumonia diagnosed a week ago, historically on azithromycin and cefuroxime. Presented with mechanical fall and noted troponin elevation. Upon further review, it appears that the patient has had troponemia dating back to August 2019. She denies any exertional symptoms. Denies ever experiencing chest pain. She does have a low normal ejection fraction of 50% to 55% with apical lateral and apical hypokinesis. Given the myelodysplastic syndrome with anemia, it does not appear that she is a cardiac catheterization candidate, thus would recommend cycling enzymes until they peak and are trending down. Would reduce aspirin to 81 mg a day. Continue Lopressor 12.5 mg p.o. b.i.d. We will obtain lipid panel and assess statin therapy. Would transfuse hemoglobin to goal of 8. It is possible that this is stress related from underlying pneumonia. Would recommend gentle IV diuresis after packed red blood cell transfusion, given underlying left pleural effusion. No ischemic EKG changes appreciated. 2. History of breast of cancer with utilization of azacitidine, deferred to Hematology/Oncology. 3. History of iron-deficiency anemia with myelodysplastic syndrome. The patient to receive packed red blood cells. Hemoglobin today is 7.5, transfused to hemoglobin of 8. 4. History of hypertension. Currently normotensive, on Lopressor therapy. 5. Disposition: Pending course. The patient listed full code. We will follow. Case discussed with Dr. Orellana, who agrees with the above assessment and plan. JACQUES LEMUS, CAM MAKER [id number]/[facility] #: [id number] [facility] HOSPITALApril
[2019-10-11] MEDS ORDERED: Metoprolol Tartrate IV* 1 MG/ML 5 ML VIAL IV ONE (13:31)
[2019-10-11] MEDS ORDERED: Albuterol 2.5 MG/3 ML NEB.SOL* (0.083%) INH ONE (14:33)
[2019-10-11] MEDS ORDERED: Furosemide IV* 10 MG/ML VIAL (40 MG) IV ONE (14:41)
--- NOTE | 2019-10-11 14:54 | PN ---
Cardiology Progress Note Date of Service: 10/11/19 - CC: agitated See full consultation from BIOGEOGRAPHER Aye Martinez. Pt currently agitated, wanting to sit up, be on left side. Denies pain of any sort, no CP, leg or arm pain, no abdominal or suprapubic pain. Unable to verbalize what is wrong. Vital Signs - 12 hr Temp Pulse Resp BP Pulse Ox 10/11/19 14:22 100.2 F 122 44 168/80 98 10/11/19 14:21 128 168/80 97 10/11/19 14:01 100.8 F 10/11/19 13:24 96 10/11/19 13:23 98.2 F 134 32 144/61 84 10/11/19 11:01 98.4 F 111 20 129/65 94 10/11/19 08:10 97.7 F 86 20 123/48 100 10/11/19 03:30 98.7 F 92 18 117/66 94 Obese elderly woman, on bed, squirmy, appears uncomfortable. Answers questions but poor historian. No focal deficits. Diminished BS and dull to percussion lower 1/2 of Left lung field. Cor: S1S2 reg. no murmurs, tachycardic. Abd: flat, soft, non tender. Ext: no edema, symetrical legs, non tender, RUE > LUE, IV's in. WBC 2.4 10^3/uL (3.5-10.8) L 10/11/19 04:23 RBC 2.21 10^6 /uL (3.70-4.87) L 10/11/19 04:23 Hgb 7.5 g/dL (12.0-16.0) L 10/11/19 04:23 Hct 22 % (35-47) L 10/11/19 04:23 MCV 98 fL (80-97) H 10/11/19 04:23 MCH 34 pg (27-31) H 10/11/19 04:23 MCHC 35 g/dL (31-36) 10/11/19 04:23 RDW 27 % (10-15) H 10/11/19 04:23 Plt Count 162 10^3/uL (150-450) 10/11/19 04:23 MPV 8.6 fL (7.4-10.4) 10/11/19 04:23 Neut % (Auto) 74.8 % 10/11/19 04:23 Lymph % (Auto) 22.3 % 10/11/19 04:23 [place] % (Auto) 0.5 % 10/11/19 04:23 Eos % (Auto) 0.4 % 10/11/19 04:23 Baso % (Auto) 2.0 % 10/11/19 04:23 Absolute Neuts (auto) 1.8 10^3/ul (1.5-7.7) 10/11/19 04:23 Absolute Lymphs (auto) 0.5 10^3/ul (1.0-4.8) L 10/11/19 04:23 Absolute Monos (auto) 0.0 10^3/ul (0-0.8) 10/11/19 04:23 Absolute Eos (auto) 0.0 10^3/ul (0-0.6) 10/11/19 04:23 Absolute Basos (auto) 0.0 10^3/ul (0-0.2) 10/11/19 04:23 Absolute Nucleated RBC 0.0 10^3/ul 10/11/19 04:23 Immature Gran % 1.0 % (0-9) 10/11/19 04:23 Neutrophils % 67.0 % 10/11/19 04:23 Band Neutrophils % 1.0 % (0-8) 10/11/19 04:23 Lymphocytes % 31.0 % 10/11/19 04:23 Monocytes % 1.0 % 10/11/19 04:23 Nucleated RBC % 0.9 10/11/19 04:23 Nucleated RBCs/100 WBC 1.0 (0-0) H 10/10/19 09:35 Normal RBC Morphology Not Reportable 10/11/19 04:23 Anisocytosis 2+ 10/11/19 04:23 Microcytosis 2+ 10/11/19 04:23 Macrocytosis 1+ 10/11/19 04:23 Tear Drop Cells 1+ 10/11/19 04:23 Elliptocytes 1+ 10/11/19 04:23 Hem Pathologist Commnt 10/11/19 04:23 INR (Anticoag Therapy) 1.42 (0.82-1.09) H 10/10/19 09:35 APTT 27.3 seconds (26.0-38.0) 10/10/19 09:35 Sodium 139 mmol/L (135-145) 10/11/19 04:23 Potassium 3.9 mmol/L (3.5-5.0) 10/11/19 04:23 Chloride 110 mmol/L (101-111) 10/11/19 04:23 Carbon Dioxide 23 mmol/L (22-32) 10/11/19 04:23 Anion Gap 6 mmol/L (2-11) 10/11/19 04:23 BUN 14 mg/dL (6-24) 10/11/19 04:23 Creatinine 0.69 mg/dL (0.51-0.95) 10/11/19 04:23 Est GFR ( Amer) 99.6 (>60) 10/11/19 04:23 Est GFR (Non-Af Amer) 82.3 (>60) 10/11/19 04:23 BUN/Creatinine Ratio 20.3 (8-20) H 10/11/19 04:23 Glucose 117 mg/dL (70-100) H 10/11/19 04:23 Calcium 7.8 mg/dL (8.6-10.3) L 10/11/19 04:23 Magnesium 1.8 mg/dL (1.9-2.7) L 10/10/19 09:35 Total Bilirubin 0.60 mg/dL (0.2-1.0) 10/11/19 04:23 AST 46 U/L (13-39) H 10/11/19 04:23 ALT 50 U/L (7-52) 10/11/19 04:23 Alkaline Phosphatase 53 U/L (34-104) 10/11/19 04:23 Troponin I 0.44 ng/mL (<0.03) H* 10/11/19 10:13 B-Natriuretic Peptide 374 pg/mL (<=100) H 10/10/19 09:35 Total Protein 5.7 g/dL (6.4-8.9) L 10/11/19 04:23 Albumin 2.5 g/dL (3.2-5.2) L 10/11/19 04:23 Globulin 3.2 g/dL (2-4) 10/11/19 04:23 Albumin/Globulin Ratio 0.8 (1-3) L 10/11/19 04:23 Triglycerides 85 mg/dL 10/11/19 10:13 Cholesterol 143 mg/dL 10/11/19 10:13 LDL Cholesterol 95 mg/dL 10/11/19 10:13 HDL Cholesterol 31.1 mg/dL 10/11/19 10:13 Urine Color Yellow 10/10/19 16:30 Urine Appearance Cloudy 10/10/19 16:30 Urine pH 6.0 (5-9) 10/10/19 16:30 Ur Specific [place] 1.023 (1.010-1.030) 10/10/19 16:30 Urine Protein 1+(30 mg/dl) (Negative) A 10/10/19 16:30 Urine Ketones Trace (Negative) A 10/10/19 16:30 Urine Blood Negative (Negative) 10/10/19 16:30 Urine Nitrate Negative (Negative) 10/10/19 16:30 Urine Bilirubin Negative (Negative) 10/10/19 16:30 Urine Urobilinogen Negative (Negative) 10/10/19 16:30 Ur Leukocyte Esterase Negative (Negative) 10/10/19 16:30 Urine WBC (Auto) Trace(0-5/hpf) (Absent) 10/10/19 16:30 Urine RBC (Auto) Absent (Absent) 10/10/19 16:30 Ur Squamous Epith Cells Present (Absent) A 10/10/19 16:30 Amorphous Crystals Present (Absent) A 10/10/19 16:30 Urine Bacteria Absent (Absent) 10/10/19 16:30 Urine Glucose 1+(50 mg/dl) (Negative) A 10/10/19 16:30 Urine Ascorbic Acid * (Negative) A 10/10/19 16:30 Blood Type A Positive 10/11/19 04:17 Antibody Screen Negative 10/11/19 04:17 Crossmatch See Detail 10/11/19 04:17 CXR: Pleural effusion left, moderate. To me appears to have moderate CHF/ pulmonary edema as well. ECG: ST, diffuse ST flattening. *[facility]* [place] [address] Fax #: [phone] Transthoracic Echocardiogram Patient: Laura Blanton : 1940 Study Date: 10/10/2019 Age: 79 Gender: F HR: 83 bpm Height: 67 in /170.2 cm BSA: 2.04 m^2 Weight: 204.6 lb /93 kg BMI: 32.1 kg/m^2 *Pari [employer] Ticket Cashier: * Monica Mtz [facility] *Referring Physician: * Wendy CapellanReading Physician: * Rich Mccloud MD Indications: Myocardial Infarction (new). History: Breast cancer, myelodysplastic syndrome, chemotherapy, recent fall. Risk factors: Hypertension. Conclusions Summary: - Left ventricle: The cavity size is mildly to moderately dilated. Wall thickness is mildly to moderately increased. Systolic function is at the lower limits of normal. The estimated ejection fraction is 50-55%. Hypokinesis of the apicallateral and apical myocardium. - Mitral valve: There is mild regurgitation. - Aortic valve: There is no evidence of stenosis. - Tricuspid valve: There is mild-moderate regurgitation. - Pulmonary arteries: Systolic pressure is moderately increased. Estimated PASP 50-55 mmHg - Study data: No prior study is available for comparison. A/P 79 yo with MDS, pneumonia, pleural effusion with elevated trops, non specific ST changes, small focal area of apical hypokinesis and PA pressure 55 mmHg on echo yesterday. Now acutely very antsy, tachycardic. Agree with BIOGEOGRAPHER note that patient is medical management only. Diuretic had been ordered and not given yet., Modify plan for CHF (HFpEF) with increased symptoms and give IV now (Xi Capellan ordered changes) Trops could be CAD Type 1 or type 2 ischemia and they could be a PE. Oncology is attempting to get CTA. Discussed empiric heparin, but oncology concerned about MDS, hx GI bleed. Consider increasing beta nitin, but wait until we see the patient's response to IV lasix.
--- NOTE | 2019-10-11 14:57 | PN ---
Progress Note - Progress Note Date of Service: 10/11/19 SOAP: Subjective: []Called by nursing with change in condition. Laura is notably restless with increased WOB. She denies all symptoms yet continues to attempt to get out of bed. New fever, hypoxia, and recurrent tachycardia. Medications Aspirin (Aspirin 81 Mg Chew Tab*) 81 mg PO DAILY [facility] Furosemide (Lasix Iv*) 20 mg IV SLOW PU DAILY [facility] Heparin Sodium (Porcine) (Heparin Vial(*)) 5,000 units SUBCUT Q8HR [facility] Last Admin: 10/11/19 05:32 Dose: 5,000 units Piperacillin Sod/Tazobactam (Sod 3.375 gm/ Sodium Chloride) 100 mls @ 25 mls/ hr IVPB Q8H [facility] Last Admin: 10/11/19 07:26 Dose: 25 mls/hr Lorazepam (Ativan Tab(*)) 0.5 mg PO ONCE PRN PRN Reason: AGITATION Metoprolol Tartrate (Lopressor Tab*) 12.5 mg PO Q12H [facility] Ondansetron HCl (Zofran Odt Tab*) 4 mg SL Q6H PRN PRN Reason: NAUSEA/VOMITING Pharmacy Consult (Zosyn Per Pharmacy*) 1 note FOLLOW UP .ZOSYN PER PHARMACY [facility] Objective: [] Vital Signs Temp Pulse Resp BP Pulse Ox 100.2 F 122 44 168/80 98 10/11/19 14:22 10/11/19 14:22 10/11/19 14:22 10/11/19 14:22 10/11/19 14:22 Alert and disoriented, extremely restless HRR, tachy LS L dim. @ base, dull to percussion, Right clear +wheeze Tachypnea Right arm with edema 12-lead EKG with ST, no SVT on tele, rare PVCs lactic acid pending Portable x-ray on initial eval. appears to show congestion bilat. with persistent Left pleural effusion Assessment: []79 yo female with MDS admitted with elevated troponins and persistent LLL pneumonia. She is now septic with fluid volume overload. Her echo yesterday shows normal LVEF, however she may have diastolic failure with demand ischemia. Case discussed with cardiology @ bedside. Plan: []- STAT blood cultures obtained, fortunately her lactic acid is normal - 40 mg IV push lasix x1 now, albuterol neb x1 now as well - straight cath for Urine culture (had tse in overnight) - CTA Chest now if possible, however she is extremely restless and this therefore may not be possible without sedation DNR signed this AM with present, remains appropriate, however will continue aggressive medical management of acute changes Attempted to update , no answer @ home phone.
[2019-10-11 15:09] LABS: Urine Appearance Cloudy; Urine Bilirubin Negative (Negative); Urine Blood 2+ (Negative); Urine Color Amber; Urine Glucose 1+(50 mg/dL) (Negative); Urine Ketones 1+ (Negative); Urine Nitrite Negative (Negative); Urine Protein 2+(100 mg/dL) (Negative); Urine Specific Gravity 1.033 (1.010-1.030); Urine Urobilinogen Negative (Negative)
[2019-10-11 15:14] LABS: Urine Bacteria Absent (Absent); Urine Red Blood Cell 3+(>10/hpf) (Absent); Urine Squamous Epithelial Cell Present (Absent); Urine White Blood Cell 2+(11-20/hpf) (Absent)
[2019-10-11] MEDS ORDERED: Nitro 2% OINT* (Nitroglycerin) 1 INCH/PAK PAK TOPICAL SCH (15:30)
[2019-10-11 16:22] LABS: CO2 Carbon Dioxide 15 mmol/L (22-32); Calcium 8.1 mg/dL (8.6-10.3); Chloride 109 mmol/L (101-111); Sodium 137 mmol/L (135-145)
[2019-10-11 16:27] LABS: Anion Gap 13 mmol/L (2-11)
[2019-10-11 16:28] LABS: ALT 56 U/L (7-52); Albumin/Globulin Ratio 0.8 (1-3); Alkaline Phosphatase 74 U/L (34-104); BUN/Creatinine Ratio 19.5 (8-20); Blood Urea Nitrogen 16 mg/dL (6-24); EGFR African American 81.6 (>60); EGFR Non-African American 67.4 (>60); Globulin 3.8 g/dL (2-4); Glucose 186 mg/dL (70-100); Total Protein 6.8 g/dL (6.4-8.9)
[2019-10-11 16:52] LABS: Hematocrit 24 % (35-47); Mean Corpuscular HGB Conc 33 g/dL (31-36); Mean Corpuscular Hemoglobin 33 pg (27-31); Mean Corpuscular Volume 99 fL (80-97); Mean Platelet Volume 8.6 fL (7.4-10.4); Platelet Count 230 10^3/uL (150-450); Red Blood Count 2.45 10^6 /uL (3.70-4.87); Red Cell Distribution Width 27 % (10-15)
[2019-10-11] MEDS ORDERED: Iodixanol* (CONTRAST) 320 MG/ML 100 ML SDV IV ONE (17:14)
[2019-10-11 17:34] LABS: ABS Lymphocytes 0.2 10^3/ul (1.0-4.8); ABS Neutrophils 3.7 10^3/ul (1.5-7.7); ABS Nucleated RBC 0.1 10^3/ul; Eosinophil % 0.4 %; Lymphocyte % 6.1 %; Microcytosis 1+; Nucleated Red Blood Cells % 1.1
--- NOTE | 2019-10-11 18:08 | PN ---
Progress Note - Progress Note Date of Service: 10/11/19 Note: Consultation Note -- Critical Care Requesting Physician: Wendy Capellan Reason for consult: increased work of breathing Limitations in history/physical: information is obtained from chart and nursing d/t AMS Date of consult: 10/09 HPI: 79F with known medical history of breast cancer, MDS, anemia, HTN, presents on 10/09 after a fall off the toilet and hit her head. She fell off a lifted toilet at home. She was recently treated for PNA and it seems to be persistent. Progressive functional decline over the past several months, likely has dementia but is undiagnosed. On 10/10, she started experiencing increased work of breathing, fluid overload. She was given lasix with minimal improvement so was transferred to ICU. ROS: ROS unable to be obtained secondary to dementia/mental status change PMHx: MDS, breast cancer, anemia, hypertension PSHx: breast biopsy , SCC left arm, tonsillectomy Family History: Mother age 69 from cancer, Father at 72 from [place] Social History: , lives with , denies tobacco, occasional etoh Allergies: NKDA Home Medications: Calcium Carbonate/Vitamin D3 [Caltrate 600 + D Soft Chew Tab] 1 tab PO DAILY [History Confirmed 10/10/19] Multivit-Min/Iron/Folic/Lutein [Centrum Silver Women Tablet] 1 each PO DAILY 04/14 [History Confirmed 10/10/19] Cyanocobalamin TAB* [Vitamin B12 TAB*] 250 mcg PO DAILY 10/10/19 [History Confirmed 10/10/19] Ferrous Sulfate TAB* 325 mg PO BID 10/10/19 [History Confirmed 10/10/19] Tele: sinus tach Vitals: Vital Signs 10/10/19 10/10/19 10/11/19 19:38 23:41 03:30 Temperature 98.3 F 98.1 F 98.7 F Pulse Rate 101 103 92 Respiratory 24 18 18 Rate Blood Pressure 148/72 137/66 117/66 (mmHg) O2 Sat by Pulse 93 93 94 Oximetry 10/11/19 10/11/19 10/11/19 08:10 11:01 13:23 Temperature 97.7 F 98.4 F 98.2 F Pulse Rate 86 111 134 Respiratory 20 20 32 Rate Blood Pressure 123/48 129/65 144/61 (mmHg) O2 Sat by Pulse 100 94 84 Oximetry 10/11/19 10/11/19 10/11/19 13:24 14:01 14:21 Temperature 100.8 F Pulse Rate 128 Respiratory Rate Blood Pressure 168/80 (mmHg) O2 Sat by Pulse 96 97 Oximetry 10/11/19 10/11/19 10/11/19 14:22 15:13 15:19 Temperature 100.2 F Pulse Rate 122 120 Respiratory 44 40 40 Rate Blood Pressure 168/80 (mmHg) O2 Sat by Pulse 98 91 Oximetry 10/11/19 10/11/19 10/11/19 16:19 16:20 16:30 Temperature 99.3 F Pulse Rate 116 118 111 Respiratory 19 27 30 Rate Blood Pressure 119/68 119/68 128/59 (mmHg) O2 Sat by Pulse 94 94 98 Oximetry 10/11/19 10/11/19 10/11/19 16:46 17:00 17:15 Temperature Pulse Rate 104 98 105 Respiratory 35 25 30 Rate Blood Pressure 113/79 96/82 (mmHg) O2 Sat by Pulse 99 100 99 Oximetry 10/11/19 17:31 Temperature Pulse Rate 96 Respiratory 35 Rate Blood Pressure 117/55 (mmHg) O2 Sat by Pulse 99 Oximetry Intake and Output Last 24 Hours 10/09/19 10/10/19 10/11/19 10/12/19 06:59 06:59 06:59 06:59 Intake Total 100 Output Total 0 Balance 100 Weight 199 lb 9.6 oz Intake: IVPB 100 Oral 0 Output: Urine 0 Other: Estimated Void Medium Estimated Stool Amount Medium # Voids 2 O2: vapotherm 30l/80% Infusions: None Current Medications: Aspirin (Aspirin 81 Mg Chew Tab*) 81 mg PO DAILY [facility] Furosemide (Lasix Iv*) 20 mg IV SLOW PU DAILY [facility] Heparin Sodium (Porcine) (Heparin Vial(*)) 5,000 units SUBCUT Q8HR [facility] Last Admin: 10/11/19 14:54 Dose: 5,000 units Piperacillin Sod/Tazobactam (Sod 3.375 gm/ Sodium Chloride) 100 mls @ 25 mls/ hr IVPB Q8H [facility] Last Admin: 10/11/19 16:24 Dose: 25 mls/hr Metoprolol Tartrate (Lopressor Tab*) 12.5 mg PO Q12H [facility] Nitroglycerin (Nitroglycerin 2% Oint*) 1 inch TOPICAL 0800,1400 [facility]; Protocol Last Admin: 10/11/19 15:43 Dose: 1 inch Ondansetron HCl (Zofran Odt Tab*) 4 mg SL Q6H PRN PRN Reason: NAUSEA/VOMITING Pharmacy Consult (Zosyn Per Pharmacy*) 1 note FOLLOW UP .ZOSYN PER PHARMACY [facility] Pharmacy Profile Note (Nitro Patch/Oint Remove*) 1 note PATCH OFF 2100 [facility] Physical Exam: Constitutional: awake, alert, mildy restless with wires, no diaphoresis Head: normocephalic, atraumatic Eyes: no pallor, no icterus ENT: moist mucous membranes Neck: soft, supple CVS: normal rate, regular, no murmur Chest/Resp: bilateral air entry, very diminished throughout, no rhales, no wheeze, no rhonchi, no acc muscle use Abdomen/GI: obese, soft, nontender, nondistended, BS+ Ext/Msk: warm, pulses+, no edema Skin: intact, warm Neuro: awake, alert, orientedx1, moving all extremities, follows most commands Psych: normal affect Labs: Laboratory Results - last 24 hr 10/10/19 10/10/19 10/11/19 17:57 20:54 00:00 WBC RBC Hgb Hct MCV MCH MCHC RDW Plt Count MPV Neut % (Auto) Lymph % (Auto) [place] % (Auto) Eos % (Auto) Baso % (Auto) Absolute Neuts (auto) Absolute Lymphs (auto) Absolute Monos (auto) Absolute Eos (auto) Absolute Basos (auto) Absolute Nucleated RBC Immature Gran % Neutrophils % Band Neutrophils % Lymphocytes % Monocytes % Nucleated RBC % Normal RBC Morphology Hypochromasia Anisocytosis Microcytosis Macrocytosis Tear Drop Cells Elliptocytes Hem Pathologist Commnt Patient Temperature ABG pH ABG pH (Temp Correct) ABG pCO2 ABG pCO2 (Temp Corrct ABG pO2 ABG pO2 (Temp Correct ABG HCO3 ABG O2 Saturation ABG Base Excess Respiration Rate O2 Delivery Device Ventilator Type Vent Mode FiO2 Inspiratory Time PEEP Pressure Support Pressure Control EPAP IPAP BiPAP Sodium Potassium Chloride Carbon Dioxide Anion Gap BUN Creatinine Est GFR ( Amer) Est GFR (Non-Af Amer) BUN/Creatinine Ratio Glucose Lactic Acid Calcium Total Bilirubin AST ALT Alkaline Phosphatase Troponin I 0.34 H* 0.31 H* 0.42 H* Total Protein Albumin Globulin Albumin/Globulin Ratio Triglycerides Cholesterol LDL Cholesterol HDL Cholesterol Urine Color Urine Appearance Urine pH Ur Specific [place] Urine Protein Urine Ketones Urine Blood Urine Nitrate Urine Bilirubin Urine Urobilinogen Ur Leukocyte Esterase Urine WBC (Auto) Urine RBC (Auto) Ur Squamous Epith Cells Urine Bacteria Urine Glucose Urine Ascorbic Acid Blood Type Antibody Screen Crossmatch 10/11/19 10/11/19 10/11/19 04:17 04:23 04:23 WBC 2.4 L RBC 2.21 L Hgb 7.5 L Hct 22 L MCV 98 H MCH 34 H MCHC 35 RDW 27 H Plt Count 162 MPV 8.6 Neut % (Auto) 74.8 Lymph % (Auto) 22.3 [place] % (Auto) 0.5 Eos % (Auto) 0.4 Baso % (Auto) 2.0 Absolute Neuts (auto) 1.8 Absolute Lymphs (auto) 0.5 L Absolute Monos (auto) 0.0 Absolute Eos (auto) 0.0 Absolute Basos (auto) 0.0 Absolute Nucleated RBC 0.0 Immature Gran % 1.0 Neutrophils % 67.0 Band Neutrophils % 1.0 Lymphocytes % 31.0 Monocytes % 1.0 Nucleated RBC % 0.9 Normal RBC Morphology Not Reportable Hypochromasia Anisocytosis 2+ Microcytosis 2+ Macrocytosis 1+ Tear Drop Cells 1+ Elliptocytes 1+ Hem Pathologist Commnt Patient Temperature ABG pH ABG pH (Temp Correct) ABG pCO2 ABG pCO2 (Temp Corrct ABG pO2 ABG pO2 (Temp Correct ABG HCO3 ABG O2 Saturation ABG Base Excess Respiration Rate O2 Delivery Device Ventilator Type Vent Mode FiO2 Inspiratory Time PEEP Pressure Support Pressure Control EPAP IPAP BiPAP Sodium 139 Potassium 3.9 Chloride 110 Carbon Dioxide 23 Anion Gap 6 BUN 14 Creatinine 0.69 Est GFR ( Amer) 99.6 Est GFR (Non-Af Amer) 82.3 BUN/Creatinine Ratio 20.3 H Glucose 117 H Lactic Acid Calcium 7.8 L Total Bilirubin 0.60 AST 46 H ALT 50 Alkaline Phosphatase 53 Troponin I 0.53 H* Total Protein 5.7 L Albumin 2.5 L Globulin 3.2 Albumin/Globulin Ratio 0.8 L Triglycerides Cholesterol LDL Cholesterol HDL Cholesterol Urine Color Urine Appearance Urine pH Ur Specific [place] Urine Protein Urine Ketones Urine Blood Urine Nitrate Urine Bilirubin Urine Urobilinogen Ur Leukocyte Esterase Urine WBC (Auto) Urine RBC (Auto) Ur Squamous Epith Cells Urine Bacteria Urine Glucose Urine Ascorbic Acid Blood Type A Positive Antibody Screen Negative Crossmatch See Detail 10/11/19 10/11/19 10/11/19 10:13 14:12 14:42 WBC RBC Hgb Hct MCV MCH MCHC RDW Plt Count MPV Neut % (Auto) Lymph % (Auto) [place] % (Auto) Eos % (Auto) Baso % (Auto) Absolute Neuts (auto) Absolute Lymphs (auto) Absolute Monos (auto) Absolute Eos (auto) Absolute Basos (auto) Absolute Nucleated RBC Immature Gran % Neutrophils % Band Neutrophils % Lymphocytes % Monocytes % Nucleated RBC % Normal RBC Morphology Hypochromasia Anisocytosis Microcytosis Macrocytosis Tear Drop Cells Elliptocytes Hem Pathologist Commnt Patient Temperature ABG pH ABG pH (Temp Correct) ABG pCO2 ABG pCO2 (Temp Corrct ABG pO2 ABG pO2 (Temp Correct ABG HCO3 ABG O2 Saturation ABG Base Excess Respiration Rate O2 Delivery Device Ventilator Type Vent Mode FiO2 Inspiratory Time PEEP Pressure Support Pressure Control EPAP IPAP BiPAP Sodium Potassium Chloride Carbon Dioxide Anion Gap BUN Creatinine Est GFR ( Amer) Est GFR (Non-Af Amer) BUN/Creatinine Ratio Glucose Lactic Acid 1.4 Calcium Total Bilirubin AST ALT Alkaline Phosphatase Troponin I 0.44 H* Total Protein Albumin Globulin Albumin/Globulin Ratio Triglycerides 85 Cholesterol 143 LDL Cholesterol 95 HDL Cholesterol 31.1 Urine Color Xiao Urine Appearance Cloudy Urine pH 5.0 Ur Specific [place] 1.033 H Urine Protein 2+(100 mg/dl) A Urine Ketones 1+ A Urine Blood 2+ A Urine Nitrate Negative Urine Bilirubin Negative Urine Urobilinogen Negative Ur Leukocyte Esterase Negative Urine WBC (Auto) 2+(11-20/hpf) A Urine RBC (Auto) 3+(>10/hpf) A Ur Squamous Epith Cells Present A Urine Bacteria Absent Urine Glucose 1+(50 mg/dl) A Urine Ascorbic Acid * A Blood Type Antibody Screen Crossmatch 10/11/19 10/11/19 10/11/19 15:15 16:00 16:38 WBC 4.0 RBC 2.45 L Hgb 8.0 L Hct 24 L MCV 99 H MCH 33 H MCHC 33 RDW 27 H Plt Count 230 MPV 8.6 Neut % (Auto) 92.6 Lymph % (Auto) 6.1 [place] % (Auto) 0.4 Eos % (Auto) 0.4 Baso % (Auto) 0.5 Absolute Neuts (auto) 3.7 Absolute Lymphs (auto) 0.2 L Absolute Monos (auto) 0.0 Absolute Eos (auto) 0.0 Absolute Basos (auto) 0.0 Absolute Nucleated RBC 0.1 Immature Gran % 11.0 H Neutrophils % 83.0 Band Neutrophils % 11.0 H Lymphocytes % 6.0 Monocytes % Nucleated RBC % 1.1 Normal RBC Morphology Not Reportable Hypochromasia 1+ Anisocytosis Microcytosis 1+ Macrocytosis 1+ Tear Drop Cells Elliptocytes Hem Pathologist Commnt Patient Temperature Not Reportable ABG pH 7.42 ABG pH (Temp Correct) Not Reportable ABG pCO2 30 L ABG pCO2 (Temp Corrct Not Reportable ABG pO2 78 L ABG pO2 (Temp Correct Not Reportable ABG HCO3 21.8 ABG O2 Saturation 98.0 ABG Base Excess -3.9 L Respiration Rate Not Reportable O2 Delivery Device nc Ventilator Type Not Reportable Vent Mode Not Reportable FiO2 5 Inspiratory Time Not Reportable PEEP Not Reportable Pressure Support Not Reportable Pressure Control Not Reportable EPAP Not Reportable IPAP Not Reportable BiPAP Not Reportable Sodium 137 Potassium TNP Chloride 109 Carbon Dioxide 15 L Anion Gap 13 H BUN 16 Creatinine 0.82 Est GFR ( Amer) 81.6 Est GFR (Non-Af Amer) 67.4 BUN/Creatinine Ratio 19.5 Glucose 186 H Lactic Acid Calcium 8.1 L Total Bilirubin 0.70 AST TNP ALT 56 H Alkaline Phosphatase 74 Troponin I Total Protein 6.8 Albumin 3.0 L Globulin 3.8 Albumin/Globulin Ratio 0.8 L Triglycerides Cholesterol LDL Cholesterol HDL Cholesterol Urine Color Urine Appearance Urine pH Ur Specific [place] Urine Protein Urine Ketones Urine Blood Urine Nitrate Urine Bilirubin Urine Urobilinogen Ur Leukocyte Esterase Urine WBC (Auto) Urine RBC (Auto) Ur Squamous Epith Cells Urine Bacteria Urine Glucose Urine Ascorbic Acid Blood Type Antibody Screen Crossmatch Imaging: Chest xray 10/09: Interval development of bilateral airspace disease and engorgment of pulmonary vasulature. CTH 10/09: neg Assessment: 79F with known medical history of breast cancer, MDS, anemia, HTN, presents on 10/09 after a fall off the toilet and hit her head. She fell off a lifted toilet at home. She was recently treated for PNA and it seems to be persistent. Progressive functional decline over the past several months, likely has dementia but is undiagnosed. On 10/10, she started experiencing increased work of breathing, fluid overload. She was given lasix with minimal improvement so was transferred to ICU. Plan: Neuro- - AMS: unknown baseline. Appears to have undiagnosed dementia but restless and confused currently. [place] cultured -Delirium prec; avoid BDZ CVS- - No apparent issues -Maintain MAP>65 as long as SBP<160 Resp- - Increased WOB: possibly fluid overload vs worsening PNA. Transferred to ICU for bipap but patient does not need bipap. CO is actually 30. Will place on vapotherm for hypoxia and wean off as tolerated -Wean Fio2 to keep sat>92% - CTA chest pending - Rpt chest xray in AM -Bronchodilators PRN, Aspiration prec, Pulmonary Toilet ID- - Noted to have a low grade fever on floor. Seems to have been barajas cultured and is on zosyn - Goal temp<101 GI- -Nutrition: NPO -GI prophylaxis not indicated Renal- -strict I/O, replete to keep K>4, Mg>2 -external cath. Heme- - Hx of MDS. Hgb 8. Goal >8 - Heparin subq for DVT prophylaxis Endo- Maintain BG<200, insulin protocol as needed Musculsk- pressure ulcer prophylaxis. Bedrest. Wounds- none Nutrition- NPO DVT prophylaxis: heparin subq GI prophylaxis:not indicated Broussard Catheter: Disposition: Admit to ICU; Expected LOS>2 midnights; Patient requires Critical Care/ICU for respiratory distress Patient Clinical Status: critical Code Status: DNR/DNI Total Critical Care time is 30 minutes
[2019-10-11] MEDS: Metoprolol Tartrate TAB* 25 MG PO SCH (20:53)
[2019-10-11] MEDS: Melatonin 3 MG TAB PO SCH (20:53)
[2019-10-11] MEDS ORDERED: Nitro Patch/OINT Remove PATCH OFF SCH (21:00)
[2019-10-11] MEDS ORDERED: QUEtiapine TAB* 25 MG PO ONE (23:57)
[2019-10-12 06:57] LABS: Hematocrit 20 % (35-47); Hemoglobin 6.9 g/dL (12.0-16.0); Mean Corpuscular HGB Conc 34 g/dL (31-36); Mean Corpuscular Hemoglobin 33 pg (27-31); Mean Corpuscular Volume 98 fL (80-97); Mean Platelet Volume 8.7 fL (7.4-10.4); Platelet Count 196 10^3/uL (150-450); Red Blood Count 2.09 10^6 /uL (3.70-4.87); Red Cell Distribution Width 27 % (10-15)
[2019-10-12 07:10] LABS: BUN/Creatinine Ratio 22.4 (8-20); Calcium 7.6 mg/dL (8.6-10.3); EGFR African American 78.3 (>60); EGFR Non-African American 64.7 (>60); Potassium 3.2 mmol/L (3.5-5.0)
[2019-10-12 07:31] LABS: ABS Lymphocytes 0.5 10^3/ul (1.0-4.8); ABS Neutrophils 1.5 10^3/ul (1.5-7.7); Eosinophil % 0.1 %; Lymphocyte % 23.6 %; Microcytosis 2+; Nucleated Red Blood Cells % 0.7
[2019-10-12] MEDS: Heparin VIAL(*) 5000 UNITS/ML VIAL (FIVE THOUSAND) SUBCUT SCH ×3 (07:43→21:53)
[2019-10-12] MEDS: ZOSYN 3.375 GM Q8H per EXTENDED INFUSION IVPB SCH ×2 (07:43)
[2019-10-12] MEDS ORDERED: Potassium Chlor TAB* 20 MEQ TAB.ER PO ONE ×2 (08:42→12:00)
[2019-10-12] MEDS: Metoprolol Tartrate TAB* 25 MG PO SCH (09:06)
[2019-10-12] MEDS: Aspirin 81 mg CHEW TAB* 81 MG TAB.CHEW PO SCH (09:07)
[2019-10-12] MEDS: Furosemide IV* 10 MG/ML 2 ML VIAL (20 MG) IV SLOW PU SCH (09:09)
[2019-10-12] MEDS ORDERED: Furosemide IV* 10 MG/ML VIAL (40 MG) IV ONE ×2 (09:15)
[2019-10-12 09:34] LABS: Magnesium 1.9 mg/dL (1.9-2.7)
--- NOTE | 2019-10-12 09:55 | PN ---
Progress Note - Progress Note Date of Service: 10/12/19 SOAP: Subjective: [Doing much better this morning. Quickly improved when she reached the ICU yesterday afternoon. Was on Vapotherm for ~1h. Back to [place] and reports that she 's feeling well. No cough or SOB. Tmax 100.8 at 1400 10/10, no fever since reaching the unit.] Objective: [ Vital Signs: Temp Pulse Resp BP Pulse Ox 97.2 F 89 20 101/56 95 10/12/19 08:00 10/12/19 09:00 10/12/19 09:00 10/12/19 08:01 10/12/19 09:00 Aspirin (Aspirin 81 Mg Chew Tab*) 81 mg PO DAILY [facility] Last Admin: 10/12/19 09:07 Dose: 81 mg Furosemide (Lasix Iv*) 20 mg IV SLOW PU DAILY [facility] Last Admin: 10/12/19 09:09 Dose: 20 mg Furosemide (Lasix Iv*) 20 mg IV ONCE ONE Stop: 10/12/19 13:01 Heparin Sodium (Porcine) (Heparin Vial(*)) 5,000 units SUBCUT Q8HR [facility] Last Admin: 10/12/19 07:43 Dose: 5,000 units Piperacillin Sod/Tazobactam (Sod 3.375 gm/ Sodium Chloride) 100 mls @ 25 mls/ hr IVPB Q8H [facility] Last Admin: 10/12/19 07:43 Dose: 25 mls/hr Melatonin (Melatonin) 3 mg PO BEDTIME [facility] Last Admin: 10/11/19 20:53 Dose: 3 mg Ondansetron HCl (Zofran Odt Tab*) 4 mg SL Q6H PRN PRN Reason: NAUSEA/VOMITING Pharmacy Consult (Zosyn Per Pharmacy*) 1 note FOLLOW UP .ZOSYN PER PHARMACY [facility] Potassium Chloride (Klor Con Er Tab*) 40 meq PO ONCE ONE Stop: 10/12/19 12:01 Laboratory Results - last 24 hr 10/11/19 10/11/19 10/11/19 04:17 04:23 10:13 WBC RBC Hgb Hct MCV MCH MCHC RDW Plt Count MPV Neut % (Auto) Lymph % (Auto) [place] % (Auto) Eos % (Auto) Baso % (Auto) Absolute Neuts (auto) Absolute Lymphs (auto) Absolute Monos (auto) Absolute Eos (auto) Absolute Basos (auto) Absolute Nucleated RBC Immature Gran % Neutrophils % Band Neutrophils % Lymphocytes % Nucleated RBC % Normal RBC Morphology Hypochromasia Anisocytosis Microcytosis Macrocytosis Elliptocytes Hem Pathologist Commnt Patient Temperature ABG pH ABG pH (Temp Correct) ABG pCO2 ABG pCO2 (Temp Corrct ABG pO2 ABG pO2 (Temp Correct ABG HCO3 ABG O2 Saturation ABG Base Excess Respiration Rate O2 Delivery Device Ventilator Type Vent Mode FiO2 Inspiratory Time PEEP Pressure Support Pressure Control EPAP IPAP BiPAP Sodium Potassium Chloride Carbon Dioxide Anion Gap BUN Creatinine Est GFR ( Amer) Est GFR (Non-Af Amer) BUN/Creatinine Ratio Glucose Lactic Acid Calcium Magnesium Total Bilirubin AST ALT Alkaline Phosphatase Troponin I 0.44 H* Total Protein Albumin Globulin Albumin/Globulin Ratio Triglycerides 85 Cholesterol 143 LDL Cholesterol 95 HDL Cholesterol 31.1 Urine Color Urine Appearance Urine pH Ur Specific [place] Urine Protein Urine Ketones Urine Blood Urine Nitrate Urine Bilirubin Urine Urobilinogen Ur Leukocyte Esterase Urine WBC (Auto) Urine RBC (Auto) Ur Squamous Epith Cells Urine Bacteria Urine Glucose Urine Ascorbic Acid Blood Type A Positive Antibody Screen Negative Crossmatch See Detail 10/11/19 10/11/19 10/11/19 14:12 14:42 15:15 WBC RBC Hgb Hct MCV MCH MCHC RDW Plt Count MPV Neut % (Auto) Lymph % (Auto) [place] % (Auto) Eos % (Auto) Baso % (Auto) Absolute Neuts (auto) Absolute Lymphs (auto) Absolute Monos (auto) Absolute Eos (auto) Absolute Basos (auto) Absolute Nucleated RBC Immature Gran % Neutrophils % Band Neutrophils % Lymphocytes % Nucleated RBC % Normal RBC Morphology Hypochromasia Anisocytosis Microcytosis Macrocytosis Elliptocytes Hem Pathologist Commnt Patient Temperature Not Reportable ABG pH 7.42 ABG pH (Temp Correct) Not Reportable ABG pCO2 30 L ABG pCO2 (Temp Corrct Not Reportable ABG pO2 78 L ABG pO2 (Temp Correct Not Reportable ABG HCO3 21.8 ABG O2 Saturation 98.0 ABG Base Excess -3.9 L Respiration Rate Not Reportable O2 Delivery Device nc Ventilator Type Not Reportable Vent Mode Not Reportable FiO2 5 Inspiratory Time Not Reportable PEEP Not Reportable Pressure Support Not Reportable Pressure Control Not Reportable EPAP Not Reportable IPAP Not Reportable BiPAP Not Reportable Sodium Potassium Chloride Carbon Dioxide Anion Gap BUN Creatinine Est GFR ( Amer) Est GFR (Non-Af Amer) BUN/Creatinine Ratio Glucose Lactic Acid 1.4 Calcium Magnesium Total Bilirubin AST ALT Alkaline Phosphatase Troponin I Total Protein Albumin Globulin Albumin/Globulin Ratio Triglycerides Cholesterol LDL Cholesterol HDL Cholesterol Urine Color Xiao Urine Appearance Cloudy Urine pH 5.0 Ur Specific [place] 1.033 H Urine Protein 2+(100 mg/dl) A Urine Ketones 1+ A Urine Blood 2+ A Urine Nitrate Negative Urine Bilirubin Negative Urine Urobilinogen Negative Ur Leukocyte Esterase Negative Urine WBC (Auto) 2+(11-20/hpf) A Urine RBC (Auto) 3+(>10/hpf) A Ur Squamous Epith Cells Present A Urine Bacteria Absent Urine Glucose 1+(50 mg/dl) A Urine Ascorbic Acid * A Blood Type Antibody Screen Crossmatch 10/11/19 10/11/19 10/12/19 16:00 16:38 06:45 WBC 4.0 2.0 L RBC 2.45 L 2.09 L Hgb 8.0 L 6.9 L Hct 24 L 20 L MCV 99 H 98 H MCH 33 H 33 H MCHC 33 34 RDW 27 H 27 H Plt Count 230 196 MPV 8.6 8.7 Neut % (Auto) 92.6 74.6 Lymph % (Auto) 6.1 23.6 [place] % (Auto) 0.4 0.3 Eos % (Auto) 0.4 0.1 Baso % (Auto) 0.5 1.4 Absolute Neuts (auto) 3.7 1.5 Absolute Lymphs (auto) 0.2 L 0.5 L Absolute Monos (auto) 0.0 0.0 Absolute Eos (auto) 0.0 0.0 Absolute Basos (auto) 0.0 0.0 Absolute Nucleated RBC 0.1 0.0 Immature Gran % 11.0 H Neutrophils % 83.0 Band Neutrophils % 11.0 H Lymphocytes % 6.0 Nucleated RBC % 1.1 0.7 Normal RBC Morphology Not Reportable Hypochromasia 1+ Anisocytosis 2+ Microcytosis 1+ 2+ Macrocytosis 1+ Elliptocytes 1+ Hem Pathologist Commnt Patient Temperature ABG pH ABG pH (Temp Correct) ABG pCO2 ABG pCO2 (Temp Corrct ABG pO2 ABG pO2 (Temp Correct ABG HCO3 ABG O2 Saturation ABG Base Excess Respiration Rate O2 Delivery Device Ventilator Type Vent Mode FiO2 Inspiratory Time PEEP Pressure Support Pressure Control EPAP IPAP BiPAP Sodium 137 Potassium TNP Chloride 109 Carbon Dioxide 15 L Anion Gap 13 H BUN 16 Creatinine 0.82 Est GFR ( Amer) 81.6 Est GFR (Non-Af Amer) 67.4 BUN/Creatinine Ratio 19.5 Glucose 186 H Lactic Acid Calcium 8.1 L Magnesium Total Bilirubin 0.70 AST TNP ALT 56 H Alkaline Phosphatase 74 Troponin I Total Protein 6.8 Albumin 3.0 L Globulin 3.8 Albumin/Globulin Ratio 0.8 L Triglycerides Cholesterol LDL Cholesterol HDL Cholesterol Urine Color Urine Appearance Urine pH Ur Specific [place] Urine Protein Urine Ketones Urine Blood Urine Nitrate Urine Bilirubin Urine Urobilinogen Ur Leukocyte Esterase Urine WBC (Auto) Urine RBC (Auto) Ur Squamous Epith Cells Urine Bacteria Urine Glucose Urine Ascorbic Acid Blood Type Antibody Screen Crossmatch 10/12/19 06:45 WBC RBC Hgb Hct MCV MCH MCHC RDW Plt Count MPV Neut % (Auto) Lymph % (Auto) [place] % (Auto) Eos % (Auto) Baso % (Auto) Absolute Neuts (auto) Absolute Lymphs (auto) Absolute Monos (auto) Absolute Eos (auto) Absolute Basos (auto) Absolute Nucleated RBC Immature Gran % Neutrophils % Band Neutrophils % Lymphocytes % Nucleated RBC % Normal RBC Morphology Hypochromasia Anisocytosis Microcytosis Macrocytosis Elliptocytes Hem Pathologist Commnt Patient Temperature ABG pH ABG pH (Temp Correct) ABG pCO2 ABG pCO2 (Temp Corrct ABG pO2 ABG pO2 (Temp Correct ABG HCO3 ABG O2 Saturation ABG Base Excess Respiration Rate O2 Delivery Device Ventilator Type Vent Mode FiO2 Inspiratory Time PEEP Pressure Support Pressure Control EPAP IPAP BiPAP Sodium 140 Potassium 3.2 L Chloride 109 Carbon Dioxide 25 Anion Gap 6 BUN 19 Creatinine 0.85 Est GFR ( Amer) 78.3 Est GFR (Non-Af Amer) 64.7 BUN/Creatinine Ratio 22.4 H Glucose 111 H Lactic Acid Calcium 7.6 L Magnesium 1.9 Total Bilirubin AST ALT Alkaline Phosphatase Troponin I Total Protein Albumin Globulin Albumin/Globulin Ratio Triglycerides Cholesterol LDL Cholesterol HDL Cholesterol Urine Color Urine Appearance Urine pH Ur Specific [place]im Urine Protein Urine Ketones Urine Blood Urine Nitrate Urine Bilirubin Urine Urobilinogen Ur Leukocyte Esterase Urine WBC (Auto) Urine RBC (Auto) Ur Squamous Epith Cells Urine Bacteria Urine Glucose Urine Ascorbic Acid Blood Type Antibody Screen Crossmatch Exam: Gen: Chronically ill appearing, but in NAD HEENT: MMM CV: RRR, no m/r/g Resp: crackles at lung bases Abd: soft, nonTTP Ext: trace LE edema Skin: no rashes] Assessment: [This is a 79 yo female with MDS recently treated with azacitadine recently hospitalized for PNA and readmitted after a fall at home found to have elevated troponins, likely related to demand ischemia. She was transferred to ICU yesterday in respiratory distress due to pulm edema, quickly recovered after IV Lasix bolus. ] Plan: 1. Acute respiratory distress - multifactorial, most likely due to pulmonary edema, now improved following Lasix - CTA neg for PE - CT c/w pulm edema v infiltrate, febrile yesterday - cont broad spectrum abx and r/o for COVID19 virus 2. Demand ischemia - cardiology has recommended medical management - decided against stress testing/cardiac cath due to MDS and limited ability to continue appropriate antiplatelet agents post stent 3. MDS - transfuse for Hgb <8 g/dl 4. Dementia - suspected underlying and rapidly progressive dementia - she is impulsive, but no evidence of acute delirium, participating appropriately in conversation and care Dispo: ok to transfer from ICU to with isolation precautions in place pending COVID19 testing. Update given to her by phone.
--- NOTE | 2019-10-12 11:12 | PN ---
<Aye Martinez - Last Filed: 10/12/19 11:07> Subjective Date of Service: 10/12/19 - DHF, Troponin elevation, anemia Interval History: Patient responded well to Bipap and IV lasix. Off BiPAP and on nasal canula. She is now being ruled out for Covid 19. she continues to deny chest pain. States breathing improved. No other complaints Medications Active Medications: Aspirin (Aspirin 81 Mg Chew Tab*) 81 mg PO DAILY [facility] Last Admin: 10/12/19 09:07 Dose: 81 mg Furosemide (Lasix Iv*) 20 mg IV SLOW PU DAILY [facility] Last Admin: 10/12/19 09:09 Dose: 20 mg Furosemide (Lasix Iv*) 20 mg IV ONCE ONE Stop: 10/12/19 13:01 Heparin Sodium (Porcine) (Heparin Vial(*)) 5,000 units SUBCUT Q8HR [facility] Last Admin: 10/12/19 07:43 Dose: 5,000 units Piperacillin Sod/Tazobactam (Sod 3.375 gm/ Sodium Chloride) 100 mls @ 25 mls/ hr IVPB Q8H [facility] Last Admin: 10/12/19 07:43 Dose: 25 mls/hr Melatonin (Melatonin) 3 mg PO BEDTIME [facility] Last Admin: 10/11/19 20:53 Dose: 3 mg Ondansetron HCl (Zofran Odt Tab*) 4 mg SL Q6H PRN PRN Reason: NAUSEA/VOMITING Pharmacy Consult (Zosyn Per Pharmacy*) 1 note FOLLOW UP .ZOSYN PER PHARMACY [facility] Potassium Chloride (Klor Con Er Tab*) 40 meq PO ONCE ONE Stop: 10/12/19 12:01 Objective Vital Signs: Temp Pulse Resp BP Pulse Ox 97.2 F 77 23 101/56 100 10/12/19 08:00 10/12/19 10:00 10/12/19 10:00 10/12/19 08:01 10/12/19 10:00 Oxygen Devices in Use Now: Nasal Cannula Appearance: Sitting upright in bed. NAD, cooperative. Eyes: No Scleral Icterus, PERRLA Ears/Nose/Mouth/Throat: NL Teeth, Lips, Gums, Clear Oropharnyx, Mucous Membranes Moist Neck: - - +JVP, + rales in L>R base with + dimished lung sounds in Left lower and mid lobe Cardiovascular: NL Sounds; No Murmurs; No JVD, No Edema Abdominal: NL Sounds; No Tenderness; No Distention, No Hepatosplenomegaly Extremities: No Edema Neurological: Alert and Oriented x 3 Lines/Tubes/Other Access: Clean, Dry and Intact Peripheral IV Laboratory Results: 10/12/19 06:45 10/12/19 06:45 INR (Anticoag Therapy) 1.42 (0.82-1.09) H 10/10/19 09:35 APTT 27.3 seconds (26.0-38.0) 10/10/19 09:35 Total Bilirubin 0.70 mg/dL (0.2-1.0) 10/11/19 16:00 AST TNP 10/11/19 16:00 ALT 56 U/L (7-52) H 10/11/19 16:00 Alkaline Phosphatase 74 U/L (34-104) 10/11/19 16:00 B-Natriuretic Peptide 374 pg/mL (<=100) H 10/10/19 09:35 Total Protein 6.8 g/dL (6.4-8.9) 10/11/19 16:00 Albumin 3.0 g/dL (3.2-5.2) L 10/11/19 16:00 Globulin 3.8 g/dL (2-4) 10/11/19 16:00 Albumin/Globulin Ratio 0.8 (1-3) L 10/11/19 16:00 Triglycerides 85 mg/dL 10/11/19 10:13 Cholesterol 143 mg/dL 10/11/19 10:13 LDL Cholesterol 95 mg/dL 10/11/19 10:13 HDL Cholesterol 31.1 mg/dL 10/11/19 10:13 10/10/19 10/10/19 10/10/19 09:35 14:58 17:57 Troponin I 0.37 H* 0.35 H* 0.34 H* 10/10/19 10/11/19 10/11/19 20:54 00:00 04:23 Troponin I 0.31 H* 0.42 H* 0.53 H* 10/11/19 10:13 Troponin I 0.44 H* Laboratory Results - last 24 hr 10/11/19 10/11/19 10/11/19 04:17 04:23 14:12 WBC RBC Hgb Hct MCV MCH MCHC RDW Plt Count MPV Neut % (Auto) Lymph % (Auto) [place] % (Auto) Eos % (Auto) Baso % (Auto) Absolute Neuts (auto) Absolute Lymphs (auto) Absolute Monos (auto) Absolute Eos (auto) Absolute Basos (auto) Absolute Nucleated RBC Immature Gran % Neutrophils % Band Neutrophils % Lymphocytes % Nucleated RBC % Normal RBC Morphology Hypochromasia Anisocytosis Microcytosis Macrocytosis Elliptocytes Hem Pathologist Commnt Patient Temperature ABG pH ABG pH (Temp Correct) ABG pCO2 ABG pCO2 (Temp Corrct ABG pO2 ABG pO2 (Temp Correct ABG HCO3 ABG O2 Saturation ABG Base Excess Respiration Rate O2 Delivery Device Ventilator Type Vent Mode FiO2 Inspiratory Time PEEP Pressure Support Pressure Control EPAP IPAP BiPAP Sodium Potassium Chloride Carbon Dioxide Anion Gap BUN Creatinine Est GFR ( Amer) Est GFR (Non-Af Amer) BUN/Creatinine Ratio Glucose Lactic Acid 1.4 Calcium Magnesium Total Bilirubin AST ALT Alkaline Phosphatase Total Protein Albumin Globulin Albumin/Globulin Ratio Urine Color Urine Appearance Urine pH Ur Specific [place] Urine Protein Urine Ketones Urine Blood Urine Nitrate Urine Bilirubin Urine Urobilinogen Ur Leukocyte Esterase Urine WBC (Auto) Urine RBC (Auto) Ur Squamous Epith Cells Urine Bacteria Urine Glucose Urine Ascorbic Acid Blood Type A Positive Antibody Screen Negative Crossmatch See Detail 10/11/19 10/11/19 10/11/19 14:42 15:15 16:00 WBC RBC Hgb Hct MCV MCH MCHC RDW Plt Count MPV Neut % (Auto) Lymph % (Auto) [place] % (Auto) Eos % (Auto) Baso % (Auto) Absolute Neuts (auto) Absolute Lymphs (auto) Absolute Monos (auto) Absolute Eos (auto) Absolute Basos (auto) Absolute Nucleated RBC Immature Gran % Neutrophils % Band Neutrophils % Lymphocytes % Nucleated RBC % Normal RBC Morphology Hypochromasia Anisocytosis Microcytosis Macrocytosis Elliptocytes Hem Pathologist Commnt Patient Temperature Not Reportable ABG pH 7.42 ABG pH (Temp Correct) Not Reportable ABG pCO2 30 L ABG pCO2 (Temp Corrct Not Reportable ABG pO2 78 L ABG pO2 (Temp Correct Not Reportable ABG HCO3 21.8 ABG O2 Saturation 98.0 ABG Base Excess -3.9 L Respiration Rate Not Reportable O2 Delivery Device nc Ventilator Type Not Reportable Vent Mode Not Reportable FiO2 5 Inspiratory Time Not Reportable PEEP Not Reportable Pressure Support Not Reportable Pressure Control Not Reportable EPAP Not Reportable IPAP Not Reportable BiPAP Not Reportable Sodium 137 Potassium TNP Chloride 109 Carbon Dioxide 15 L Anion Gap 13 H BUN 16 Creatinine 0.82 Est GFR ( Amer) 81.6 Est GFR (Non-Af Amer) 67.4 BUN/Creatinine Ratio 19.5 Glucose 186 H Lactic Acid Calcium 8.1 L Magnesium Total Bilirubin 0.70 AST TNP ALT 56 H Alkaline Phosphatase 74 Total Protein 6.8 Albumin 3.0 L Globulin 3.8 Albumin/Globulin Ratio 0.8 L Urine Color Xiao Urine Appearance Cloudy Urine pH 5.0 Ur Specific [place] 1.033 H Urine Protein 2+(100 mg/dl) A Urine Ketones 1+ A Urine Blood 2+ A Urine Nitrate Negative Urine Bilirubin Negative Urine Urobilinogen Negative Ur Leukocyte Esterase Negative Urine WBC (Auto) 2+(11-20/hpf) A Urine RBC (Auto) 3+(>10/hpf) A Ur Squamous Epith Cells Present A Urine Bacteria Absent Urine Glucose 1+(50 mg/dl) A Urine Ascorbic Acid * A Blood Type Antibody Screen Crossmatch 10/11/19 10/12/19 10/12/19 16:38 06:45 06:45 WBC 4.0 2.0 L RBC 2.45 L 2.09 L Hgb 8.0 L 6.9 L Hct 24 L 20 L MCV 99 H 98 H MCH 33 H 33 H MCHC 33 34 RDW 27 H 27 H Plt Count 230 196 MPV 8.6 8.7 Neut % (Auto) 92.6 74.6 Lymph % (Auto) 6.1 23.6 [place] % (Auto) 0.4 0.3 Eos % (Auto) 0.4 0.1 Baso % (Auto) 0.5 1.4 Absolute Neuts (auto) 3.7 1.5 Absolute Lymphs (auto) 0.2 L 0.5 L Absolute Monos (auto) 0.0 0.0 Absolute Eos (auto) 0.0 0.0 Absolute Basos (auto) 0.0 0.0 Absolute Nucleated RBC 0.1 0.0 Immature Gran % 11.0 H Neutrophils % 83.0 Band Neutrophils % 11.0 H Lymphocytes % 6.0 Nucleated RBC % 1.1 0.7 Normal RBC Morphology Not Reportable Hypochromasia 1+ Anisocytosis 2+ Microcytosis 1+ 2+ Macrocytosis 1+ Elliptocytes 1+ Hem Pathologist Commnt Patient Temperature ABG pH ABG pH (Temp Correct) ABG pCO2 ABG pCO2 (Temp Corrct ABG pO2 ABG pO2 (Temp Correct ABG HCO3 ABG O2 Saturation ABG Base Excess Respiration Rate O2 Delivery Device Ventilator Type Vent Mode FiO2 Inspiratory Time PEEP Pressure Support Pressure Control EPAP IPAP BiPAP Sodium 140 Potassium 3.2 L Chloride 109 Carbon Dioxide 25 Anion Gap 6 BUN 19 Creatinine 0.85 Est GFR ( Amer) 78.3 Est GFR (Non-Af Amer) 64.7 BUN/Creatinine Ratio 22.4 H Glucose 111 H Lactic Acid Calcium 7.6 L Magnesium 1.9 Total Bilirubin AST ALT Alkaline Phosphatase Total Protein Albumin Globulin Albumin/Globulin Ratio Urine Color Urine Appearance Urine pH Ur Specific [place] Urine Protein Urine Ketones Urine Blood Urine Nitrate Urine Bilirubin Urine Urobilinogen Ur Leukocyte Esterase Urine WBC (Auto) Urine RBC (Auto) Ur Squamous Epith Cells Urine Bacteria Urine Glucose Urine Ascorbic Acid Blood Type Antibody Screen Crossmatch Diagnostic Imaging: Patient Name: GUILLE BLANTON Medical Record#: [id number] Ordering Physician: Elodia Haque NP Acct.#: [id number] : 1940 Age: 79 Sex: F Location: [facility] Exam Date: 10/12/19 0600 ADM Status: ADM IN Order Information: CHEST AP/PORT Accession Number: [id number] CPT: 67117 HISTORY: SOB, high O2 requirements COMPARISONS: October 11, 2019 VIEWS: 1: frontal AP view of the chest at 5:35 AM FINDINGS: LINES AND TUBES: None. CARDIOMEDIASTINAL SILHOUETTE: The cardiomediastinal silhouette is normal for portable technique. PLEURA: There is a large left pleural effusion progressed from the previous examination. LUNG PARENCHYMA: There is diffuse pattern of reticular opacification with confluent alveolar opacification of the left mid to lower lung field and to lesser extent of the right lower lung field. ABDOMEN: The upper abdomen is clear. There is no subphrenic gas. BONES AND SOFT TISSUES: No bone or soft tissue abnormalities are noted. IMPRESSION: MIXED INTERSTITIAL AND AIRSPACE DISEASE, PROGRESSED FROM THE PREVIOUS EXAMINATION, WITH PROGRESSION OF LEFT-SIDED PLEURAL EFFUSION. THE DIFFERENTIAL INCLUDES PULMONARY INTERSTITIAL AND ALVEOLAR EDEMA, WELL PULMONARY INTERSTITIAL EDEMA WITH SUPERIMPOSED INFECTIOUS CONSOLIDATION. <Electronically signed by Dimitrios Youngblood MD in [place]> 10/12/19751 Dictated By: Dimitrios Youngblood MD Dictated Date/Time: 10/12/19750 Transcribed Date/Time: 10/12/19750 Copy to: CC:Mirella Pineda DO; Michael Sheikh MD; Sridevi Orellana MD; Elodia Haque NP ; Astrid Michelle MD Imaging - [facility] [address] [address] ph ([phone]) ph ) ph ) This report is only to be considered final once signed by the Provider(s) as displayed in the "<Electronically Signed by >" field (s). Absence of a signature indicates the report is in a draft status and still needs to be finalized. In the event this document was created by someone other than the signing Provider, the individual initiating the document will be listed in the "Entered by:" or "Dictated by:" [email or web address]. 1 of 1 *[facility]* [place] [address] Fax #: [phone] Transthoracic Echocardiogram Patient: Guille Blanton : 1940 Study Date: 10/10/2019 Age: 79 Gender: F HR: 83 bpm Height: 67 in /170.2 cm BSA: 2.04 m^2 Weight: 204.6 lb /93 kg BMI: 32.1 kg/m^2 *Desktop Analyst: Monica Paiz [place] *Referring Physician: * Wendy CapellanReading Physician: * Rich Mccloud MD Indications: Myocardial Infarction (new). History: Breast cancer, myelodysplastic syndrome, chemotherapy, recent fall. Risk factors: Hypertension. Conclusions Summary: - Left ventricle: The cavity size is mildly to moderately dilated. Wall thickness is mildly to moderately increased. Systolic function is at the lower limits of normal. The estimated ejection fraction is 50-55%. Hypokinesis of the apicallateral and apical myocardium. - Mitral valve: There is mild regurgitation. - Aortic valve: There is no evidence of stenosis. - Tricuspid valve: There is mild-moderate regurgitation. - Pulmonary arteries: Systolic pressure is moderately increased. Estimated PASP 50-55 mmHg - Study data: No prior study is available for comparison. Study data: Transthoracic echocardiogram. Procedure: Transthoracic echocardiography was performed. Image quality was fair. Intravenous Definity , 2 mlswas administered. Complete 2D, This report is only to be considered final once signed by the Provider(s) as displayed in the "<Electronically Signed by >" field (s). Absence of a signature indicates the report is in a draft status and still needs to be finalized. In the event this document was created by someone other than the signing Provider, the individual initiating the document will be listed in the "Entered by:" or "Dictated by:" [email or web address]. Assessment/Plan #1 Troponin elevation; appears to be demand base given anemia, recent diagnosis of pneumonia and decompensated DHF. Deemed not a candidate for LHC. Patient DNR. Medical therapy recommended; ASA 81/day, bblocker and now statin therapy. LVEF 50-55% with apical lateral and apical hypokinesis( stress related). given relative hypotension will hold bblocker therapy for now. #2 h/o Myelodysplastic syndrome with anemia; hgb 6.9 . Recommend transfusing to a Hgb 8. Primary team managing. #3 DHF; patient acutely decompensated yesterday afternoon and required IV Lasix , NTG and Bipap. Prior to this she was recieving fluids which were d/c's yesterday morning. Would increase Lasix to 40mg x1 this morning, give 20mg IV in between PRBCs and re evaluat this evening. Will add on Mag level to this morning labs and check daily chemistry. Will given another 40 MEQ K-Dur at noon today. #4 Disposition pending course. Patient being tested for Covid 19 given recent admit for pneumonia and acute decompensation 10/10/19. Listed DNR. Case d/w Dr. Curiel who agrees with plan of care. Attending: Lisbet Curiel <Lisbet Curiel - Last Filed: 10/12/19 14:56> Medications Active Medications: Aspirin (Aspirin 81 Mg Chew Tab*) 81 mg PO DAILY [facility] Last Admin: 10/12/19 09:07 Dose: 81 mg Atorvastatin Calcium (Lipitor*) 40 mg PO 2100 RAGINI Furosemide (Lasix Iv*) 20 mg IV SLOW PU DAILY [facility] Last Admin: 10/12/19 09:09 Dose: 20 mg Heparin Sodium (Porcine) (Heparin Vial(*)) 5,000 units SUBCUT Q8HR [facility] Last Admin: 10/12/19 07:43 Dose: 5,000 units Piperacillin Sod/Tazobactam (Sod 3.375 gm/ Sodium Chloride) 100 mls @ 25 mls/ hr IVPB Q8H [facility] Last Admin: 10/12/19 07:43 Dose: 25 mls/hr Melatonin (Melatonin) 3 mg PO BEDTIME [facility] Last Admin: 10/11/19 20:53 Dose: 3 mg Ondansetron HCl (Zofran Odt Tab*) 4 mg SL Q6H PRN PRN Reason: NAUSEA/VOMITING Pharmacy Consult (Zosyn Per Pharmacy*) 1 note FOLLOW UP .ZOSYN PER PHARMACY [facility] Objective Vital Signs: Temp Pulse Resp BP Pulse Ox 96.8 F 81 26 117/57 98 10/12/19 12:00 10/12/19 12:00 10/12/19 12:00 10/12/19 12:00 10/12/19 12:00 Laboratory Results: 10/12/19 06:45 10/12/19 06:45 INR (Anticoag Therapy) 1.42 (0.82-1.09) H 10/10/19 09:35 APTT 27.3 seconds (26.0-38.0) 10/10/19 09:35 Total Bilirubin 0.70 mg/dL (0.2-1.0) 10/11/19 16:00 AST TNP 10/11/19 16:00 ALT 56 U/L (7-52) H 10/11/19 16:00 Alkaline Phosphatase 74 U/L (34-104) 10/11/19 16:00 B-Natriuretic Peptide 374 pg/mL (<=100) H 10/10/19 09:35 Total Protein 6.8 g/dL (6.4-8.9) 10/11/19 16:00 Albumin 3.0 g/dL (3.2-5.2) L 10/11/19 16:00 Globulin 3.8 g/dL (2-4) 10/11/19 16:00 Albumin/Globulin Ratio 0.8 (1-3) L 10/11/19 16:00 Triglycerides 85 mg/dL 10/11/19 10:13 Cholesterol 143 mg/dL 10/11/19 10:13 LDL Cholesterol 95 mg/dL 10/11/19 10:13 HDL Cholesterol 31.1 mg/dL 10/11/19 10:13 10/10/19 10/10/19 10/10/19 09:35 14:58 17:57 Troponin I 0.37 H* 0.35 H* 0.34 H* 10/10/19 10/11/19 10/11/19 20:54 00:00 04:23 Troponin I 0.31 H* 0.42 H* 0.53 H* 10/11/19 10:13 Troponin I 0.44 H* Assessment/Plan 10.12.2019 pt's clinical condition discussed and reviewed with CRISELDA Martinez. DNR. Diastolic CHF. Pneuomonia. Agree with current medical /decision care plan.
--- NOTE | 2019-10-12 11:41 | PN ---
Progress Note - Progress Note Date of Service: 10/12/19 Note: Progress Note -- Critical Care 24 hour events/significant events: - Patient doing well on 4L NC this AM - Was only on vapotherm for an hour yesterday on arrival to ICU. ROS: ROS unable to be obtained secondary to likely dementia, AMS Tele: NSR Vitals: Vital Signs 10/11/19 10/11/19 10/11/19 13:23 13:24 14:01 Temperature 98.2 F 100.8 F Pulse Rate 134 Respiratory 32 Rate Blood Pressure 144/61 (mmHg) O2 Sat by Pulse 84 96 Oximetry 10/11/19 10/11/19 10/11/19 14:21 14:22 15:13 Temperature 100.2 F Pulse Rate 128 122 Respiratory 44 40 Rate Blood Pressure 168/80 168/80 (mmHg) O2 Sat by Pulse 97 98 Oximetry 10/11/19 10/11/19 10/11/19 15:19 16:19 16:20 Temperature 99.3 F Pulse Rate 120 116 118 Respiratory 40 19 27 Rate Blood Pressure 119/68 119/68 (mmHg) O2 Sat by Pulse 91 94 94 Oximetry 10/11/19 10/11/19 10/11/19 16:30 16:46 17:00 Temperature Pulse Rate 111 104 98 Respiratory 30 35 25 Rate Blood Pressure 128/59 113/79 (mmHg) O2 Sat by Pulse 98 99 100 Oximetry 10/11/19 10/11/19 10/11/19 17:15 17:31 18:00 Temperature Pulse Rate 105 96 92 Respiratory 30 35 32 Rate Blood Pressure 96/82 117/55 (mmHg) O2 Sat by Pulse 99 99 99 Oximetry 10/11/19 10/11/19 10/11/19 19:00 19:02 19:43 Temperature 99.1 F Pulse Rate 94 96 Respiratory 21 34 Rate Blood Pressure 119/62 (mmHg) O2 Sat by Pulse 90 95 Oximetry 10/11/19 10/11/19 10/11/19 20:00 20:01 21:00 Temperature Pulse Rate 87 90 87 Respiratory 29 30 23 Rate Blood Pressure 103/57 (mmHg) O2 Sat by Pulse 97 97 96 Oximetry 10/11/19 10/11/19 10/11/19 21:01 21:54 22:00 Temperature Pulse Rate 88 78 Respiratory 19 28 21 Rate Blood Pressure 123/64 (mmHg) O2 Sat by Pulse 99 97 Oximetry 10/11/19 10/11/19 10/11/19 22:01 22:53 23:00 Temperature Pulse Rate 81 81 Respiratory 21 22 29 Rate Blood Pressure 109/63 (mmHg) O2 Sat by Pulse 98 99 Oximetry 10/11/19 10/11/19 10/12/19 23:01 23:47 00:00 Temperature 97.1 F Pulse Rate 82 89 Respiratory 22 24 17 Rate Blood Pressure 118/55 (mmHg) O2 Sat by Pulse 99 100 Oximetry 10/12/19 10/12/19 10/12/19 00:02 00:19 00:45 Temperature Pulse Rate 89 84 Respiratory 23 17 20 Rate Blood Pressure 125/75 (mmHg) O2 Sat by Pulse 94 96 Oximetry 10/12/19 10/12/19 10/12/19 01:00 01:02 01:57 Temperature Pulse Rate 69 73 Respiratory 22 Rate Blood Pressure 96/58 (mmHg) O2 Sat by Pulse 99 100 Oximetry 10/12/19 10/12/19 10/12/19 02:00 02:04 02:09 Temperature Pulse Rate 66 64 Respiratory Rate Blood Pressure 103/51 105/51 (mmHg) O2 Sat by Pulse 99 98 Oximetry 10/12/19 10/12/19 10/12/19 02:42 03:00 03:01 Temperature Pulse Rate 64 65 Respiratory 20 Rate Blood Pressure 105/63 (mmHg) O2 Sat by Pulse 100 97 Oximetry 10/12/19 10/12/19 10/12/19 03:33 03:40 04:00 Temperature 97.9 F Pulse Rate 62 Respiratory 20 Rate Blood Pressure (mmHg) O2 Sat by Pulse 99 Oximetry 10/12/19 10/12/19 10/12/19 04:01 04:48 05:00 Temperature Pulse Rate 63 61 Respiratory 20 Rate Blood Pressure 100/75 (mmHg) O2 Sat by Pulse 99 100 Oximetry 10/12/19 10/12/19 10/12/19 05:01 05:59 06:02 Temperature Pulse Rate 60 Respiratory 22 Rate Blood Pressure 111/55 91/76 (mmHg) O2 Sat by Pulse 100 Oximetry 10/12/19 10/12/19 10/12/19 06:48 07:00 07:02 Temperature Pulse Rate 80 98 Respiratory 26 Rate Blood Pressure 122/80 (mmHg) O2 Sat by Pulse 95 Oximetry 10/12/19 10/12/19 10/12/19 08:00 08:01 09:00 Temperature 97.2 F Pulse Rate 72 69 89 Respiratory 22 20 20 Rate Blood Pressure 101/56 (mmHg) O2 Sat by Pulse 100 100 95 Oximetry 10/12/19 10:00 Temperature Pulse Rate 77 Respiratory 23 Rate Blood Pressure (mmHg) O2 Sat by Pulse 100 Oximetry Intake and Output Last 24 Hours 10/10/19 10/11/19 10/12/19 10/13/19 06:59 06:59 06:59 06:59 Intake Total 100 459 450 Output Total 0 400 Balance 100 59 450 Weight 199 lb 9.6 oz 196 lb 10.437 oz Intake: IV Fluids 21 NS (0.9%) 21 IVPB 100 Medicated IV 318 zosyn 318 Oral 0 120 450 Output: Urine 0 200 Straight Cath 200 Other: Estimated Void Medium Estimated Stool Amount Medium # Voids 2 O2/: 4LNC Infusions: None Medications: Aspirin (Aspirin 81 Mg Chew Tab*) 81 mg PO DAILY ON [facility] OF [facility] Last Admin: 10/12/19 09:07 Dose: 81 mg Atorvastatin Calcium (Lipitor*) 40 mg PO 2100 ON [facility] OF [facility] Furosemide (Lasix Iv*) 20 mg IV SLOW PU DAILY ON [facility] OF [facility] Last Admin: 10/12/19 09:09 Dose: 20 mg Furosemide (Lasix Iv*) 20 mg IV ONCE ONE Stop: 10/12/19 13:01 Heparin Sodium (Porcine) (Heparin Vial(*)) 5,000 units SUBCUT Q8HR ON LICENSE OF [facility] Last Admin: 10/12/19 07:43 Dose: 5,000 units Piperacillin Sod/Tazobactam (Sod 3.375 gm/ Sodium Chloride) 100 mls @ 25 mls/ hr IVPB Q8H ON LICENSE OF [facility] Last Admin: 10/12/19 07:43 Dose: 25 mls/hr Melatonin (Melatonin) 3 mg PO BEDTIME ON [facility] OF [facility] Last Admin: 10/11/19 20:53 Dose: 3 mg Ondansetron HCl (Zofran Odt Tab*) 4 mg SL Q6H PRN PRN Reason: NAUSEA/VOMITING Pharmacy Consult (Zosyn Per Pharmacy*) 1 note FOLLOW UP .ZOSYN PER PHARMACY ON LICENSE OF [facility] Potassium Chloride (Klor Con Er Tab*) 40 meq PO ONCE ONE Stop: 10/12/19 12:01 Physical Exam: Constitutional: awake, alert, mildy restless with wires, no diaphoresis Head: normocephalic, atraumatic Eyes: no pallor, no icterus ENT: moist mucous membranes Neck: soft, supple CVS: normal rate, regular, no murmur Chest/Resp: bilateral air entry, very diminished throughout, no rhales, no wheeze, no rhonchi, no acc muscle use Abdomen/GI: obese, soft, nontender, nondistended, BS+ Ext/Msk: warm, pulses+, no edema Skin: intact, warm Neuro: awake, alert, orientedx1, moving all extremities, follows most commands Psych: normal affect Labs: Laboratory Results - last 24 hr 10/11/19 10/11/19 10/11/19 04:17 04:23 14:12 WBC RBC Hgb Hct MCV MCH MCHC RDW Plt Count MPV Neut % (Auto) Lymph % (Auto) Lane % (Auto) Eos % (Auto) Baso % (Auto) Absolute Neuts (auto) Absolute Lymphs (auto) Absolute Monos (auto) Absolute Eos (auto) Absolute Basos (auto) Absolute Nucleated RBC Immature Gran % Neutrophils % Band Neutrophils % Lymphocytes % Nucleated RBC % Normal RBC Morphology Hypochromasia Anisocytosis Microcytosis Macrocytosis Elliptocytes Hem Pathologist Commnt Patient Temperature ABG pH ABG pH (Temp Correct) ABG pCO2 ABG pCO2 (Temp Corrct ABG pO2 ABG pO2 (Temp Correct ABG HCO3 ABG O2 Saturation ABG Base Excess Respiration Rate O2 Delivery Device Ventilator Type Vent Mode FiO2 Inspiratory Time PEEP Pressure Support Pressure Control EPAP IPAP BiPAP Sodium Potassium Chloride Carbon Dioxide Anion Gap BUN Creatinine Est GFR ( Amer) Est GFR (Non-Af Amer) BUN/Creatinine Ratio Glucose Lactic Acid 1.4 Calcium Magnesium Total Bilirubin AST ALT Alkaline Phosphatase Total Protein Albumin Globulin Albumin/Globulin Ratio Urine Color Urine Appearance Urine pH Ur Specific [place] Urine Protein Urine Ketones Urine Blood Urine Nitrate Urine Bilirubin Urine Urobilinogen Ur Leukocyte Esterase Urine WBC (Auto) Urine RBC (Auto) Ur Squamous Epith Cells Urine Bacteria Urine Glucose Urine Ascorbic Acid Blood Type A Positive Antibody Screen Negative Crossmatch See Detail 10/11/19 10/11/19 10/11/19 14:42 15:15 16:00 WBC RBC Hgb Hct MCV MCH MCHC RDW Plt Count MPV Neut % (Auto) Lymph % (Auto) Lane % (Auto) Eos % (Auto) Baso % (Auto) Absolute Neuts (auto) Absolute Lymphs (auto) Absolute Monos (auto) Absolute Eos (auto) Absolute Basos (auto) Absolute Nucleated RBC Immature Gran % Neutrophils % Band Neutrophils % Lymphocytes % Nucleated RBC % Normal RBC Morphology Hypochromasia Anisocytosis Microcytosis Macrocytosis Elliptocytes Hem Pathologist Commnt Patient Temperature Not Reportable ABG pH 7.42 ABG pH (Temp Correct) Not Reportable ABG pCO2 30 L ABG pCO2 (Temp Corrct Not Reportable ABG pO2 78 L ABG pO2 (Temp Correct Not Reportable ABG HCO3 21.8 ABG O2 Saturation 98.0 ABG Base Excess -3.9 L Respiration Rate Not Reportable O2 Delivery Device nc Ventilator Type Not Reportable Vent Mode Not Reportable FiO2 5 Inspiratory Time Not Reportable PEEP Not Reportable Pressure Support Not Reportable Pressure Control Not Reportable EPAP Not Reportable IPAP Not Reportable BiPAP Not Reportable Sodium 137 Potassium TNP Chloride 109 Carbon Dioxide 15 L Anion Gap 13 H BUN 16 Creatinine 0.82 Est GFR ( Amer) 81.6 Est GFR (Non-Af Amer) 67.4 BUN/Creatinine Ratio 19.5 Glucose 186 H Lactic Acid Calcium 8.1 L Magnesium Total Bilirubin 0.70 AST TNP ALT 56 H Alkaline Phosphatase 74 Total Protein 6.8 Albumin 3.0 L Globulin 3.8 Albumin/Globulin Ratio 0.8 L Urine Color Xiao Urine Appearance Cloudy Urine pH 5.0 Ur Specific [place] 1.033 H Urine Protein 2+(100 mg/dl) A Urine Ketones 1+ A Urine Blood 2+ A Urine Nitrate Negative Urine Bilirubin Negative Urine Urobilinogen Negative Ur Leukocyte Esterase Negative Urine WBC (Auto) 2+(11-20/hpf) A Urine RBC (Auto) 3+(>10/hpf) A Ur Squamous Epith Cells Present A Urine Bacteria Absent Urine Glucose 1+(50 mg/dl) A Urine Ascorbic Acid * A Blood Type Antibody Screen Crossmatch 10/11/19 10/12/19 10/12/19 16:38 06:45 06:45 WBC 4.0 2.0 L RBC 2.45 L 2.09 L Hgb 8.0 L 6.9 L Hct 24 L 20 L MCV 99 H 98 H MCH 33 H 33 H MCHC 33 34 RDW 27 H 27 H Plt Count 230 196 MPV 8.6 8.7 Neut % (Auto) 92.6 74.6 Lymph % (Auto) 6.[address] % (Auto) 0.4 0.3 Eos % (Auto) 0.4 0.1 Baso % (Auto) 0.5 1.4 Absolute Neuts (auto) 3.7 1.5 Absolute Lymphs (auto) 0.2 L 0.5 L Absolute Monos (auto) 0.0 0.0 Absolute Eos (auto) 0.0 0.0 Absolute Basos (auto) 0.0 0.0 Absolute Nucleated RBC 0.1 0.0 Immature Gran % 11.0 H Neutrophils % 83.0 Band Neutrophils % 11.0 H Lymphocytes % 6.0 Nucleated RBC % 1.1 0.7 Normal RBC Morphology Not Reportable Hypochromasia 1+ Anisocytosis 2+ Microcytosis 1+ 2+ Macrocytosis 1+ Elliptocytes 1+ Hem Pathologist Commnt Patient Temperature ABG pH ABG pH (Temp Correct) ABG pCO2 ABG pCO2 (Temp Corrct ABG pO2 ABG pO2 (Temp Correct ABG HCO3 ABG O2 Saturation ABG Base Excess Respiration Rate O2 Delivery Device Ventilator Type Vent Mode FiO2 Inspiratory Time PEEP Pressure Support Pressure Control EPAP IPAP BiPAP Sodium 140 Potassium 3.2 L Chloride 109 Carbon Dioxide 25 Anion Gap 6 BUN 19 Creatinine 0.85 Est GFR ( Amer) 78.3 Est GFR (Non-Af Amer) 64.7 BUN/Creatinine Ratio 22.4 H Glucose 111 H Lactic Acid Calcium 7.6 L Magnesium 1.9 Total Bilirubin AST ALT Alkaline Phosphatase Total Protein Albumin Globulin Albumin/Globulin Ratio Urine Color Urine Appearance Urine pH Ur Specific [place] Urine Protein Urine Ketones Urine Blood Urine Nitrate Urine Bilirubin Urine Urobilinogen Ur Leukocyte Esterase Urine WBC (Auto) Urine RBC (Auto) Ur Squamous Epith Cells Urine Bacteria Urine Glucose Urine Ascorbic Acid Blood Type Antibody Screen Crossmatch Imaging: Chest xray 10/11: Mixed interstitial and airspace disease, progressed from the previous exam, with left pleural effusion. Chest xray 10/09: Interval development of bilateral airspace disease and engorgment of pulmonary vasulature. CTH 10/09: neg Assessment: 79F with known medical history of breast cancer, MDS, anemia, HTN, presents on 10/09 after a fall off the toilet and hit her head. She fell off a lifted toilet at home. She was recently treated for PNA and it seems to be persistent. Progressive functional decline over the past several months, likely has dementia but is undiagnosed. On 10/10, she started experiencing increased work of breathing, fluid overload. She was given lasix with minimal improvement so was transferred to ICU. - Acute hypoxic respiratory failure - MDS - PNA Plan: Neuro- - AMS: unknown baseline. Appears to have undiagnosed dementia but restless and confused currently. Tong cultures pending -Delirium prec; avoid BDZ CVS- - No apparent issues -Maintain MAP>65 as long as SBP<160 Resp- - Work of breathing appears normal this AM. She was on vapotherm for about an hour yesterday and has been doing well with nasal cannula - Wean Fio2 to keep sat>92% - CTA chest shows patchy right upper lobe airspace disease, PNA vs edema. No convincing evidence of PE. - Continue daily scheduled lasix -Bronchodilators PRN, Aspiration prec, Pulmonary Toilet ID- - Afebrile overnight. Continue antibiotics for suspected infection. - Swabbed for COVID this AM d/t history and symptoms - Goal temp<101 GI- -Nutrition: OK for heart healthy diet -GI prophylaxis not indicated Renal- -strict I/O, replete to keep K>4, Mg>2 -external cath. Heme- - Hx of MDS. Will defer to heme/onc for goal/replacements - Heparin subq for DVT prophylaxis Endo- Maintain BG<200, insulin protocol as needed Musculsk- pressure ulcer prophylaxis. OOB Wounds- none Nutrition- NPO DVT prophylaxis: heparin subq GI prophylaxis:not indicated Broussard Catheter: Disposition: Ok for floor Patient Clinical Status: stable Code Status: DNR/DNI
[2019-10-12] MEDS ORDERED: Furosemide IV* 10 MG/ML 2 ML VIAL (20 MG) IV ONE (13:00)
[2019-10-12] MEDS: Melatonin 3 MG TAB PO SCH (21:53)
[2019-10-12] MEDS: Atorvastatin* 40 MG TAB PO SCH (21:53)
[2019-10-13 02:18] LABS: Calcium 7.7 mg/dL (8.6-10.3); Magnesium 1.8 mg/dL (1.9-2.7); Potassium 3.8 mmol/L (3.5-5.0)
[2019-10-13 02:23] LABS: BUN/Creatinine Ratio 22.6 (8-20); EGFR African American 79.3 (>60); EGFR Non-African American 65.6 (>60)
[2019-10-13] MEDS: ZOSYN 3.375 GM Q8H per EXTENDED INFUSION IVPB SCH ×10 (02:30→18:22)
[2019-10-13] MEDS: Heparin VIAL(*) 5000 UNITS/ML VIAL (FIVE THOUSAND) SUBCUT SCH ×3 (05:45→20:23)
[2019-10-13] MEDS ORDERED: Magnesium Sulfate 2 GM IV* 2 GM/50 ML BAG IVPB ONE (07:37)
[2019-10-13 08:59] LABS: BUN/Creatinine Ratio 25.7 (8-20); Calcium 7.7 mg/dL (8.6-10.3); EGFR African American 91.8 (>60); EGFR Non-African American 75.9 (>60); Potassium 3.9 mmol/L (3.5-5.0)
[2019-10-13 09:04] LABS: ABS Lymphocytes 0.4 10^3/ul (1.0-4.8); ABS Neutrophils 1.5 10^3/ul (1.5-7.7); Eosinophil % 0.1 %; Hematocrit 23 % (35-47); Hemoglobin 7.8 g/dL (12.0-16.0); Lymphocyte % 21.4 %; Mean Corpuscular HGB Conc 34 g/dL (31-36); Mean Corpuscular Hemoglobin 32 pg (27-31); Mean Corpuscular Volume 96 fL (80-97); Mean Platelet Volume 8.4 fL (7.4-10.4); Nucleated Red Blood Cells % 1.8; Platelet Count 271 10^3/uL (150-450); Red Blood Count 2.41 10^6 /uL (3.70-4.87); Red Cell Distribution Width 28 % (10-15)
[2019-10-13] MEDS: Aspirin 81 mg CHEW TAB* 81 MG TAB.CHEW PO SCH (09:31)
[2019-10-13] MEDS: Furosemide IV* 10 MG/ML 2 ML VIAL (20 MG) IV SLOW PU SCH (09:31)
--- NOTE | 2019-10-13 10:01 | PN ---
Progress Note - Progress Note Date of Service: 10/13/19 SOAP: Subjective: [Continues to do well. She reports she is asx. Aide at bedside reports an occasional cough. Remains quite restless, trying to get out of bed freq overnight. On a couple of occasions she was seated on the floor, no indication that she fell - but required significant assistance to get to her feet again. Afebrile for 24h.] Objective: [ Vital Signs: Temp Pulse Resp BP Pulse Ox 97.5 F 101 25 103/57 92 10/13/19 02:46 10/13/19 02:46 10/13/19 02:46 10/13/19 02:46 10/13/19 02:46 Aspirin (Aspirin 81 Mg Chew Tab*) 81 mg PO DAILY [facility] Last Admin: 10/13/19 09:31 Dose: 81 mg Atorvastatin Calcium (Lipitor*) 40 mg PO 2100 [facility] Last Admin: 10/12/19 21:53 Dose: 40 mg Furosemide (Lasix Iv*) 20 mg IV SLOW PU DAILY [facility] Last Admin: 10/13/19 09:31 Dose: 20 mg Furosemide (Lasix Iv*) 20 mg IV ONCE ONE Stop: 10/13/19 14:01 Heparin Sodium (Porcine) (Heparin Vial(*)) 5,000 units SUBCUT Q8HR [facility] Last Admin: 10/13/19 05:45 Dose: 5,000 units Piperacillin Sod/Tazobactam (Sod 3.375 gm/ Sodium Chloride) 100 mls @ 25 mls/ hr IVPB 0230,1030,1830 [facility] Last Admin: 10/13/19 09:51 Dose: 25 mls/hr Melatonin (Melatonin) 3 mg PO BEDTIME [facility] Last Admin: 10/12/19 21:53 Dose: 3 mg Ondansetron HCl (Zofran Odt Tab*) 4 mg SL Q6H PRN PRN Reason: NAUSEA/VOMITING Pharmacy Consult (Zosyn Per Pharmacy*) 1 note FOLLOW UP .ZOSYN PER PHARMACY [facility] Laboratory Results - last 24 hr 10/11/19 10/13/19 10/13/19 04:17 01:50 08:24 WBC RBC Hgb Hct MCV MCH MCHC RDW Plt Count MPV Neut % (Auto) Lymph % (Auto) [place] % (Auto) Eos % (Auto) Baso % (Auto) Absolute Neuts (auto) Absolute Lymphs (auto) Absolute Monos (auto) Absolute Eos (auto) Absolute Basos (auto) Absolute Nucleated RBC Nucleated RBC % Sodium 140 141 Potassium 3.8 3.9 Chloride 108 110 Carbon Dioxide 23 24 Anion Gap 9 7 BUN 19 19 Creatinine 0.84 0.74 Est GFR ( Amer) 79.3 91.8 Est GFR (Non-Af Amer) 65.6 75.9 BUN/Creatinine Ratio 22.6 H 25.7 H Glucose 127 H 107 H Calcium 7.7 L 7.7 L Magnesium 1.8 L Blood Type A Positive Antibody Screen Negative Crossmatch See Detail 10/13/19 08:24 WBC 2.0 L RBC 2.41 L Hgb 7.8 L Hct 23 L MCV 96 MCH 32 H MCHC 34 RDW 28 H Plt Count 271 MPV 8.4 Neut % (Auto) 76.0 Lymph % (Auto) 21.4 [place] % (Auto) 0.5 Eos % (Auto) 0.1 Baso % (Auto) 2.0 Absolute Neuts (auto) 1.5 Absolute Lymphs (auto) 0.4 L Absolute Monos (auto) 0.0 Absolute Eos (auto) 0.0 Absolute Basos (auto) 0.0 Absolute Nucleated RBC 0.0 Nucleated RBC % 1.8 Sodium Potassium Chloride Carbon Dioxide Anion Gap BUN Creatinine Est GFR ( Amer) Est GFR (Non-Af Amer) BUN/Creatinine Ratio Glucose Calcium Magnesium Blood Type Antibody Screen Crossmatch Exam: Gen: Chronically ill appearing, but in NAD HEENT: MMM CV: RRR, no m/r/g Resp: crackles at lung bases Abd: soft, nonTTP Ext: trace LE edema Skin: no rashes] Assessment: [This is a 79 yo female with MDS recently treated with azacitadine recently hospitalized for PNA and readmitted after a fall at home found to have elevated troponins, likely related to demand ischemia. She was transferred to ICU yesterday in respiratory distress due to pulm edema, quickly recovered after IV Lasix bolus. She is now back on the medical floor, cont to improve clinically with COVID testing pending. Plan: 1. Acute respiratory distress - multifactorial, most likely due to pulmonary edema, now improved following Lasix - CTA neg for PE - CT c/w pulm edema v infiltrate, febrile 10/10 - cont broad spectrum abx and r/ o for COVID19 virus - encourage use of flutter valve - repeat CXR tomorrow to reassess status of pleural effusion (assumed to be CHF v peripneumonic effusion) 2. Demand ischemia - cardiology has recommended medical management - decided against stress testing/cardiac cath due to MDS and limited ability to continue appropriate antiplatelet agents post stent 3. MDS - transfuse for Hgb <8 g/dl - receiving 2nd unit of PRBCs today 4. Dementia - suspected underlying and rapidly progressive dementia - she is impulsive, but no evidence of acute delirium, participating appropriately in conversation and care Dispo: weaning O2. Plan for dc home when no longer hypoxic (hopeful this will within the next 1-2d). Her was updated by phone.
[2019-10-13] MEDS ORDERED: Furosemide IV* 10 MG/ML 2 ML VIAL (20 MG) IV ONE (14:00)
[2019-10-13 14:40] LABS: Magnesium 1.9 mg/dL (1.9-2.7)
[2019-10-13] MEDS: Melatonin 3 MG TAB PO SCH (20:23)
[2019-10-13] MEDS: Atorvastatin* 40 MG TAB PO SCH (20:23)
[2019-10-14] MEDS: ZOSYN 3.375 GM Q8H per EXTENDED INFUSION IVPB SCH ×4 (03:00→10:39)
[2019-10-14] MEDS: Heparin VIAL(*) 5000 UNITS/ML VIAL (FIVE THOUSAND) SUBCUT SCH ×2 (05:22→16:19)
[2019-10-14] MEDS: Aspirin 81 mg CHEW TAB* 81 MG TAB.CHEW PO SCH (07:31)
[2019-10-14] MEDS: Furosemide IV* 10 MG/ML 2 ML VIAL (20 MG) IV SLOW PU SCH (07:31)
[2019-10-14 08:10] LABS: ABS Lymphocytes 0.5 10^3/ul (1.0-4.8); ABS Neutrophils 1.3 10^3/ul (1.5-7.7); Eosinophil % 0.2 %; Hematocrit 28 % (35-47); Hemoglobin 9.5 g/dL (12.0-16.0); Mean Corpuscular HGB Conc 34 g/dL (31-36); Mean Corpuscular Hemoglobin 32 pg (27-31); Mean Corpuscular Volume 93 fL (80-97); Mean Platelet Volume 8.3 fL (7.4-10.4); Nucleated Red Blood Cells % 1.1; Platelet Count 275 10^3/uL (150-450); Red Cell Distribution Width 26 % (10-15); White Blood Count 1.9 10^3/uL (3.5-10.8)
[2019-10-14 08:13] LABS: BUN/Creatinine Ratio 21.3 (8-20); Calcium 7.7 mg/dL (8.6-10.3); EGFR African American 90.4 (>60); EGFR Non-African American 74.7 (>60); Potassium 3.5 mmol/L (3.5-5.0)
--- NOTE | 2019-10-14 08:19 | PN ---
Progress Note - Progress Note Date of Service: 10/14/19 SOAP: Subjective: off O2 this am and O2 sat 89% on RA. still confused, and per staff agitated over night. keeps pulling clothing off. very calm this am with me. Objective: Vital Signs Temp Pulse Resp BP Pulse Ox 97.7 F 88 20 121/94 94 10/14/19 07:53 10/14/19 07:53 10/14/19 07:53 10/14/19 07:53 10/14/19 07:53 lying on side in nad perr eomi op moist dec bs at left base s1 s2 nl soft obese non tender no le edema scattered ecchymoses Awake, conversant, pleasant, but clearly confused moving all extremities Laboratory Results - last 24 hr 10/11/19 10/13/19 10/13/19 04:17 08:24 08:24 WBC 2.0 L RBC 2.41 L Hgb 7.8 L Hct 23 L MCV 96 MCH 32 H MCHC 34 RDW 28 H Plt Count 271 MPV 8.4 Neut % (Auto) 76.0 Lymph % (Auto) 21.4 [place] % (Auto) 0.5 Eos % (Auto) 0.1 Baso % (Auto) 2.0 Absolute Neuts (auto) 1.5 Absolute Lymphs (auto) 0.4 L Absolute Monos (auto) 0.0 Absolute Eos (auto) 0.0 Absolute Basos (auto) 0.0 Absolute Nucleated RBC 0.0 Nucleated RBC % 1.8 Sodium 141 Potassium 3.9 Chloride 110 Carbon Dioxide 24 Anion Gap 7 BUN 19 Creatinine 0.74 Est GFR ( Amer) 91.8 Est GFR (Non-Af Amer) 75.9 BUN/Creatinine Ratio 25.7 H Glucose 107 H Calcium 7.7 L Magnesium 1.9 Blood Type A Positive Antibody Screen Negative Crossmatch See Detail 10/14/19 10/14/19 07:48 07:48 WBC 1.9 L RBC 3.00 L Hgb 9.5 L Hct 28 L MCV 93 MCH 32 H MCHC 34 RDW 26 H Plt Count 275 MPV 8.3 Neut % (Auto) 72.5 Lymph % (Auto) 25.0 [place] % (Auto) 0.2 Eos % (Auto) 0.2 Baso % (Auto) 2.1 Absolute Neuts (auto) 1.3 L Absolute Lymphs (auto) 0.5 L Absolute Monos (auto) 0.0 Absolute Eos (auto) 0.0 Absolute Basos (auto) 0.0 Absolute Nucleated RBC 0.0 Nucleated RBC % 1.1 Sodium 141 Potassium 3.5 Chloride 107 Carbon Dioxide 25 Anion Gap 9 BUN 16 Creatinine 0.75 Est GFR ( Amer) 90.4 Est GFR (Non-Af Amer) 74.7 BUN/Creatinine Ratio 21.3 H Glucose 108 H Calcium 7.7 L Magnesium Blood Type Antibody Screen Crossmatch Aspirin (Aspirin 81 Mg Chew Tab*) 81 mg PO DAILY [facility] Last Admin: 10/14/19 07:31 Dose: 81 mg Atorvastatin Calcium (Lipitor*) 40 mg PO 2100 [facility] Last Admin: 10/13/19 20:23 Dose: 40 mg Furosemide (Lasix Iv*) 20 mg IV SLOW PU DAILY [facility] Last Admin: 10/14/19 07:31 Dose: 20 mg Heparin Sodium (Porcine) (Heparin Vial(*)) 5,000 units SUBCUT Q8HR [facility] Last Admin: 10/14/19 05:22 Dose: 5,000 units Piperacillin Sod/Tazobactam (Sod 3.375 gm/ Sodium Chloride) 100 mls @ 25 mls/ hr IVPB 0230,1030,1830 [facility] Last Admin: 10/14/19 03:00 Dose: 25 mls/hr Melatonin (Melatonin) 3 mg PO BEDTIME [facility] Last Admin: 10/13/19 20:23 Dose: 3 mg Ondansetron HCl (Zofran Odt Tab*) 4 mg SL Q6H PRN PRN Reason: NAUSEA/VOMITING Pharmacy Consult (Zosyn Per Pharmacy*) 1 note FOLLOW UP .ZOSYN PER PHARMACY [facility] Assessment: 79 yo female with MDS recently treated with azacitadine recently hospitalized for PNA and readmitted after a fall at home found to have elevated troponins, likely related to demand ischemia. She did develop acute respiratory distress felt 2/2 pulm edema, though is on COVID rule out. She is again hypoxic this am and back on o2, though in general does appear to be clinically improving. Plan: 1. Acute respiratory distress - multifactorial, most likely due to pulmonary edema, now improved following Lasix - CTA neg for PE - CT c/w pulm edema v infiltrate, febrile 10/10 - cont broad spectrum abx and r/ o for COVID19 virus - encourage use of flutter valve 2. Demand ischemia - cardiology has recommended medical management - decided against stress testing/cardiac cath due to MDS and limited ability to continue appropriate antiplatelet agents post stent 3. MDS - transfuse for Hgb <8 g/dl 4. Dementia - suspected underlying and rapidly progressive dementia - she is impulsive, but no evidence of acute delirium, participating appropriately in conversation and care 5. PT consult to assess needs/safety for home Dispo: weaning O2. She could go home on 2L, though the needs support of family at home and is trying to figure out who would be able to go on self isolation until COVID testing returns, as I instructed.
[2019-10-14 09:42] LABS: Polychromasia 1+
[2019-10-14 17:23] VITALS: BP 121/63
== END 2019-10-14 18:22 | disposition home health service (06) | DRG 193 ==
LOC: ED 08:57 → MEDTELE 12:08 → OBSVTOIN 10-11 12:00 → ICU 10-11 16:15 → MED 10-12 07:18
PROVIDERS: ADMIT Internal Medicine Hematology & Oncology; ATTEND Internal Medicine Hematology & Oncology
PROC: 30233N1 Transfusion of Nonautologous Red Blood Cells into Peripheral Vein, Percutaneous Approach (ICD-10-PCS; principal; 2019-10-11)
PROC: 3E0F7GC Introduction of Other Therapeutic Substance into Respiratory Tract, Via Natural or Artificial Opening (ICD-10-PCS; 2019-10-11)
DX: J18.9 Pneumonia, unspecified organism (principal); I50.33 Acute on chronic diastolic (congestive) heart failure; J96.01 Acute respiratory failure with hypoxia; J81.1 Chronic pulmonary edema; I24.8 Other forms of acute ischemic heart disease; I27.20 Pulmonary hypertension, unspecified; D69.6 Thrombocytopenia, unspecified; F03.90 Unspecified dementia, unspecified severity, without behavioral disturbance, psychotic disturbance, mood disturbance, and anxiety; R74.8 Abnormal levels of other serum enzymes; I11.0 Hypertensive heart disease with heart failure; D46.9 Myelodysplastic syndrome, unspecified; I08.1 Rheumatic disorders of both mitral and tricuspid valves; Z66 Do not resuscitate; K58.0 Irritable bowel syndrome with diarrhea; D50.9 Iron deficiency anemia, unspecified; H93.19 Tinnitus, unspecified ear; S00.93XA Contusion of unspecified part of head, initial encounter; W18.12XA Fall from or off toilet with subsequent striking against object, initial encounter; E66.9 Obesity, unspecified; Y92.002 Bathroom of unspecified non-institutional (private) residence as the place of occurrence of the external cause; Z85.3 Personal history of malignant neoplasm of breast; Z79.899 Other long term (current) drug therapy; Z83.49 Family history of other endocrine, nutritional and metabolic diseases; Z80.9 Family history of malignant neoplasm, unspecified; Z68.32 Body mass index [BMI] 32.0-32.9, adult; K44.9 Diaphragmatic hernia without obstruction or gangrene
CPT/HCPCS: 36415; 36600; 70450; 71045; 71275; 80048; 80053; 80061; 81003; 81015; 82803; 83605; 83735; 83880; 84484; 85025; 85060; 85610; 85730; 86850; 86900; 86901; 86922; 87040; 87086; 93005; 93306; 94640; 99219; 99232; 99233; 99283; A9270-GY; C8929; G0378; J1644; J1940; J2543; J3475; J3490; P9040; Q9967; U0002

== ENCOUNTER 2020-06-19 14:33 | Inpatient (IN) ==
[2020-06-19] MEDS ORDERED: NS 0.9% 1000 ml BAG 1,000 ML IV ONE (14:49)
[2020-06-19 15:58] LABS: Influenza A Molecular Negative (Negative); Influenza B Molecular Negative (Negative)
[2020-06-19] MEDS ORDERED: Cefepime 2 GM in Dextrose 2 GM/50 ML BAG IV ONE (17:21)
[2020-06-19 17:25] LABS: Hematocrit 26 % (35-47); Hemoglobin 8.8 g/dL (12.0-16.0); Mean Corpuscular HGB Conc 34 g/dL (31-36); Mean Corpuscular Hemoglobin 38 pg (27-31); Mean Corpuscular Volume 111 fL (80-97); Mean Platelet Volume 7.2 fL (7.4-10.4); Platelet Count 78 10^3/uL (150-450); Red Blood Count 2.33 10^6 /uL (3.70-4.87); Red Cell Distribution Width 16 % (10-15); White Blood Count 8.9 10^3/uL (3.5-10.8)
[2020-06-19 17:35] LABS: ALT 70 U/L (7-52); AST 54 U/L (13-39); Albumin 3.2 g/dL (3.2-5.2); Albumin/Globulin Ratio 0.7 (1-3); Alkaline Phosphatase 74 U/L (34-104); Anion Gap 10 mmol/L (2-11); BUN/Creatinine Ratio 22.5 (8-20); Blood Urea Nitrogen 16 mg/dL (6-24); CO2 Carbon Dioxide 26 mmol/L (22-32); Calcium 9.2 mg/dL (8.6-10.3); Chloride 97 mmol/L (101-111); EGFR African American 96.1 (>60); EGFR Non-African American 79.4 (>60); Globulin 4.3 g/dL (2-4); Glucose 116 mg/dL (70-100); Magnesium 1.9 mg/dL (1.9-2.7); Sodium 133 mmol/L (135-145); Total Protein 7.5 g/dL (6.4-8.9)
[2020-06-19] MEDS ORDERED: Iohexol 350 (CONTRAST) 500 ML MDV IV ONE (17:45)
[2020-06-19 17:46] LABS: Troponin I 0.03 ng/mL (<0.03)
[2020-06-19 17:57] LABS: C Reactive Protein 365.32 mg/L (<8.01)
[2020-06-19 18:12] LABS: TSH Ultra Thyroid Stim Horm 0.38 mcIU/mL (0.34-5.60)
[2020-06-19 18:32] LABS: ABS Lymphocytes 1.2 10^3/ul (1.0-4.8); ABS Neutrophils 7.7 10^3/ul (1.5-7.7); Eosinophil % 0.4 %; Nucleated Red Blood Cells % 0.3
[2020-06-19 18:53] LABS: Urine Appearance Cloudy; Urine Bilirubin Negative (Negative); Urine Blood Negative (Negative); Urine Color Amber; Urine Glucose Negative (Negative); Urine Ketones 1+ (Negative); Urine Nitrite Negative (Negative); Urine Protein 2+(100 mg/dL) (Negative); Urine Specific Gravity 1.029 (1.010-1.030); Urine Urobilinogen Negative (Negative)
[2020-06-19] MEDS ORDERED: Magnesium Hydroxide LIQ 30 ML UDC PO PRN (19:03)
[2020-06-19] MEDS ORDERED: NS 0.9% 1000 ml BAG 800 ML IV ONE (19:15)
[2020-06-19 19:20] LABS: Urine Bacteria 1+ (Absent); Urine Red Blood Cell 3+(>10/hpf) (Absent); Urine White Blood Cell 1+(6-10/hpf) (Absent)
[2020-06-19 19:38] LABS: % Iron Saturation 19 % (15-55); Iron 27 ug/dL (50-212); Total Iron Binding Capacity 140 mcg/dL (250-450); Transferrin 100 mg/dL (203-362); Unsaturated Iron Binding < 125 ug/dL
[2020-06-19 20:02] LABS: Ferritin > 1500.0 ng/mL (11-307)
[2020-06-19] MEDS ORDERED: DEXTROSE IV ONE (21:13)
[2020-06-19] MEDS ORDERED: CEFEPIME IV ONE (21:13)
[2020-06-19 23:26] LABS: Troponin I 0.03 ng/mL (<0.03)
[2020-06-19 23:43] LABS: Hepatitis B Surface Antigen Nonreactive (Nonreactive)
[2020-06-20] LABS: Hepatitis C Antibody Negative (Negative)
[2020-06-20] MEDS: Enoxaparin 40 MG/0.4 ML SYR SUBCUT SCH ×2 (01:13→20:07)
[2020-06-20] MEDS ORDERED: Cefepime 2 GM in Dextrose 2 GM/50 ML BAG IV SCH (09:00)
[2020-06-20] MEDS: Cefepime 2 GM in Dextrose 2 GM/50 ML BAG IV SCH (15:33)
[2020-06-20] MEDS: NS 0.9% 1000 ml BAG 1,000 ML IV SCH (15:35)
[2020-06-21] MEDS: NS 0.9% 1000 ml BAG 1,000 ML IV SCH ×2 (02:48→13:27)
[2020-06-21] MEDS: Cefepime 2 GM in Dextrose 2 GM/50 ML BAG IV SCH ×2 (02:48→14:09)
[2020-06-21 05:47] LABS: Hematocrit 21 % (35-47); Mean Corpuscular HGB Conc 34 g/dL (31-36); Mean Corpuscular Hemoglobin 38 pg (27-31); Mean Corpuscular Volume 111 fL (80-97); Mean Platelet Volume 7.1 fL (7.4-10.4); Platelet Count 55 10^3/uL (150-450); Red Blood Count 1.87 10^6 /uL (3.70-4.87); Red Cell Distribution Width 16 % (10-15); White Blood Count 6.5 10^3/uL (3.5-10.8)
[2020-06-21 06:06] LABS: EGFR African American 112.4 (>60); EGFR Non-African American 92.9 (>60); Potassium 3.6 mmol/L (3.5-5.0)
[2020-06-21 06:32] LABS: ABS Basophils 0.1 10^3/ul (0-0.2); ABS Lymphocytes 0.8 10^3/ul (1.0-4.8); ABS Neutrophils 5.6 10^3/ul (1.5-7.7); ABS Nucleated RBC 0.1 10^3/ul; Eosinophil % 0.2 %; Lymphocyte % 12.5 %; Nucleated Red Blood Cells % 0.7
[2020-06-21 12:40] LABS: Corrected Retic Count 0.5 % (0.5-1.5); Hematocrit for Retic CNT 21 % (35-47); Immature Retic Fraction 0.55; RBC Retic Count 1.87 10^6/uL (3.70-4.87)
[2020-06-21 15:20] LABS: Hepatitis A Ab IgM Negative (Negative)
[2020-06-21 15:21] LABS: Hepatitis B Core IgM Nonreactive (Nonreactive)
[2020-06-21] MEDS: Enoxaparin 40 MG/0.4 ML SYR SUBCUT SCH (20:31)
[2020-06-22] MEDS: Cefepime 2 GM in Dextrose 2 GM/50 ML BAG IV SCH ×2 (02:15→14:38)
[2020-06-22 06:30] LABS: Hematocrit 21 % (35-47); Hemoglobin 7.3 g/dL (12.0-16.0); Mean Corpuscular HGB Conc 34 g/dL (31-36); Mean Corpuscular Hemoglobin 38 pg (27-31); Mean Corpuscular Volume 111 fL (80-97); Mean Platelet Volume 7.3 fL (7.4-10.4); Platelet Count 55 10^3/uL (150-450); Red Blood Count 1.92 10^6 /uL (3.70-4.87); Red Cell Distribution Width 16 % (10-15)
[2020-06-22] MEDS: Enoxaparin 40 MG/0.4 ML SYR SUBCUT SCH (22:20)
[2020-06-23] MEDS: Cefepime 2 GM in Dextrose 2 GM/50 ML BAG IV SCH ×2 (02:16→14:46)
[2020-06-23 05:07] LABS: Hematocrit 21 % (35-47); Hemoglobin 7.4 g/dL (12.0-16.0); Mean Corpuscular HGB Conc 35 g/dL (31-36); Mean Corpuscular Hemoglobin 38 pg (27-31); Mean Corpuscular Volume 110 fL (80-97); Red Blood Count 1.94 10^6 /uL (3.70-4.87); Red Cell Distribution Width 16 % (10-15); White Blood Count 9.2 10^3/uL (3.5-10.8)
[2020-06-23 05:08] LABS: Albumin 2.6 g/dL (3.2-5.2); Magnesium 1.7 mg/dL (1.9-2.7); Total Bilirubin 0.5 mg/dL (0.2-1.0)
[2020-06-23 05:14] LABS: Albumin/Globulin Ratio 0.7 (1-3); BUN/Creatinine Ratio 22.5 (8-20); C Reactive Protein 305.06 mg/L (<8.01); EGFR African American 96.1 (>60); EGFR Non-African American 79.4 (>60); Globulin 3.5 g/dL (2-4); Total Protein 6.1 g/dL (6.4-8.9)
[2020-06-23 05:18] LABS: Potassium 3.7 mmol/L (3.5-5.0)
[2020-06-23 05:32] LABS: Indirect Bilirubin 0.4 mg/dL (0.3-1.0)
[2020-06-23 05:45] LABS: ABS Basophils 0.1 10^3/ul (0-0.2); ABS Lymphocytes 1.3 10^3/ul (1.0-4.8); ABS Neutrophils 7.8 10^3/ul (1.5-7.7); ABS Nucleated RBC 0.1 10^3/ul; Eosinophil % 0.4 %; Lymphocyte % 14.1 %; Nucleated Red Blood Cells % 0.8
[2020-06-23 05:51] LABS: Polychromasia 1+
[2020-06-23 05:54] LABS: Mean Platelet Volume 8.8 fL (7.4-10.4); Platelet Count 76 10^3/uL (150-450)
[2020-06-23] MEDS ORDERED: Magnesium Sulfate IV 1GM/100ML 1 GM/100 ML BAG IV ONE (11:05)
[2020-06-23] MEDS ORDERED: Lactated Ringers 1000 ml BAG 1,000 ML IV ONE (11:47)
[2020-06-23] MEDS: Enoxaparin 40 MG/0.4 ML SYR SUBCUT SCH (22:44)
[2020-06-24] MEDS: Cefepime 2 GM in Dextrose 2 GM/50 ML BAG IV SCH ×2 (02:30→13:42)
[2020-06-24 11:23] LABS: C Reactive Protein 320.93 mg/L (<8.01); EGFR African American 112.4 (>60); EGFR Non-African American 92.9 (>60); Potassium 3.5 mmol/L (3.5-5.0)
[2020-06-24 11:39] LABS: ABS Lymphocytes 0.4 10^3/ul (1.0-4.8); ABS Neutrophils 6.3 10^3/ul (1.5-7.7); ABS Nucleated RBC 0.1 10^3/ul; Eosinophil % 0.2 %; Hematocrit 18 % (35-47); Hemoglobin 6.2 g/dL (12.0-16.0); Lymphocyte % 5.7 %; Mean Corpuscular HGB Conc 34 g/dL (31-36); Mean Corpuscular Hemoglobin 37 pg (27-31); Mean Corpuscular Volume 110 fL (80-97); Mean Platelet Volume 8.3 fL (7.4-10.4); Nucleated Red Blood Cells % 0.9; Platelet Count 38 10^3/uL (150-450); Red Blood Count 1.67 10^6 /uL (3.70-4.87); Red Cell Distribution Width 16 % (10-15); White Blood Count 6.8 10^3/uL (3.5-10.8)
[2020-06-24 13:56] LABS: Burr Cells 1+; Microcytosis 2+; Polychromasia 1+; Schistocytes 1+; Spherocytes 1+; Tear Drop Cells 1+
[2020-06-24] MEDS ORDERED: Sodium Chloride(INHALANT) 3% 4 ML NEB.SOLN INH ONE (20:00)
[2020-06-24 20:25] LABS: Hematocrit 23 % (35-47); Hemoglobin 8.1 g/dL (12.0-16.0); Mean Corpuscular HGB Conc 34 g/dL (31-36); Mean Corpuscular Hemoglobin 36 pg (27-31); Mean Corpuscular Volume 103 fL (80-97); Mean Platelet Volume 8.7 fL (7.4-10.4); Platelet Count 40 10^3/uL (150-450); Red Blood Count 2.27 10^6 /uL (3.70-4.87); Red Cell Distribution Width 21 % (10-15); White Blood Count 7.2 10^3/uL (3.5-10.8)
[2020-06-24 22:38] LABS: Urine Appearance Cloudy; Urine Bilirubin Negative (Negative); Urine Blood Negative (Negative); Urine Color Yellow; Urine Glucose Negative (Negative); Urine Ketones Negative (Negative); Urine Nitrite Negative (Negative); Urine Protein 1+(30 mg/dL) (Negative); Urine Urobilinogen Negative (Negative)
[2020-06-24 22:41] LABS: Urine Bacteria Absent (Absent); Urine Red Blood Cell 2+(6-10/hpf) (Absent); Urine Squamous Epithelial Cell Present (Absent); Urine White Blood Cell 2+(11-20/hpf) (Absent)
[2020-06-24] MEDS: Enoxaparin 40 MG/0.4 ML SYR SUBCUT SCH (23:16)
[2020-06-25] MEDS: Cefepime 2 GM in Dextrose 2 GM/50 ML BAG IV SCH ×2 (02:20→14:44)
[2020-06-25] MEDS: Enoxaparin 40 MG/0.4 ML SYR SUBCUT SCH (20:21)
[2020-06-26] MEDS: Cefepime 2 GM in Dextrose 2 GM/50 ML BAG IV SCH ×2 (02:16→14:13)
[2020-06-26 10:46] LABS: Hematocrit 23 % (35-47); Hemoglobin 7.7 g/dL (12.0-16.0); Mean Corpuscular HGB Conc 34 g/dL (31-36); Mean Corpuscular Hemoglobin 36 pg (27-31); Mean Corpuscular Volume 104 fL (80-97); Red Blood Count 2.16 10^6 /uL (3.70-4.87); Red Cell Distribution Width 21 % (10-15); White Blood Count 8.6 10^3/uL (3.5-10.8)
[2020-06-26 10:48] LABS: CO2 Carbon Dioxide 24 mmol/L (22-32); Calcium 7.4 mg/dL (8.6-10.3); Chloride 105 mmol/L (101-111); Sodium 138 mmol/L (135-145)
[2020-06-26 10:53] LABS: BUN/Creatinine Ratio 25.4 (8-20); Blood Urea Nitrogen 16 mg/dL (6-24); EGFR African American 110.3 (>60); EGFR Non-African American 91.2 (>60); Glucose 182 mg/dL (70-100)
[2020-06-26 10:54] LABS: Anion Gap 9 mmol/L (2-11)
[2020-06-26 11:17] LABS: Mean Platelet Volume 8.6 fL (7.4-10.4); Platelet Count 36 10^3/uL (150-450)
[2020-06-26 11:20] LABS: ABS Eosinophils 0.1 10^3/ul (0-0.6); ABS Lymphocytes 0.6 10^3/ul (1.0-4.8); ABS Neutrophils 7.8 10^3/ul (1.5-7.7); Eosinophil % 1.5 %; Nucleated Red Blood Cells % 0.5
[2020-06-26 11:24] LABS: Polychromasia 1+
[2020-06-26 11:46] LABS: Procalcitonin, S 0.58 ng/mL (<=0.15)
[2020-06-26 13:07] LABS: Adenovirus Negative (Negative); Bordetella parapertussis Negative (Negative); Bordetella pertussis Negative (Negative); Chlamydophila pneumoniae Negative (Negative); Coronavirus 229E Negative (Negative); Coronavirus HKU1 Negative (Negative); Coronavirus NL63 Negative (Negative); Coronavirus OC43 Negative (Negative); Human Metapneumovirus Negative (Negative); Human Rhinovirus/ Enterovirus Negative (Negative); Influenza A Negative (Negative); Influenza B Negative (Negative); Mycoplasmoides pneumoniae Negative (Negative); Parainfluenza Virus 1 Negative (Negative); Parainfluenza Virus 2 Negative (Negative); Parainfluenza Virus 3 Negative (Negative); Parainfluenza Virus 4 Negative (Negative); Respiratory Syncytial Virus Negative (Negative); Specimen Source NASOPHARYNGEAL SWAB
[2020-06-26] MEDS ORDERED: Piperacillin/Tazobac ADVAN 3.375 GM in NS 0.9% 100 ml BAG 100 ML IV ONE (16:53)
[2020-06-26] MEDS ORDERED: Zosyn per Pharmacy NOTE FOLLOW UP SCH (17:00)
[2020-06-26] MEDS: Enoxaparin 40 MG/0.4 ML SYR SUBCUT SCH (21:39)
[2020-06-26] MEDS: ZOSYN 3.375 GM Q8H per EXTENDED INFUSION IV SCH (21:40)
[2020-06-27] MEDS: ZOSYN 3.375 GM Q8H per EXTENDED INFUSION IV SCH ×3 (05:33→22:06)
[2020-06-27 07:52] LABS: Hematocrit 24 % (35-47); Hemoglobin 8.2 g/dL (12.0-16.0); Mean Corpuscular HGB Conc 35 g/dL (31-36); Mean Corpuscular Hemoglobin 36 pg (27-31); Mean Corpuscular Volume 105 fL (80-97); Mean Platelet Volume 9.8 fL (7.4-10.4); Platelet Count 36 10^3/uL (150-450); Red Blood Count 2.25 10^6 /uL (3.70-4.87); Red Cell Distribution Width 21 % (10-15); White Blood Count 10.7 10^3/uL (3.5-10.8)
[2020-06-27 08:05] LABS: ABS Basophils 0.1 10^3/ul (0-0.2); ABS Lymphocytes 1.4 10^3/ul (1.0-4.8); ABS Neutrophils 9.2 10^3/ul (1.5-7.7); ABS Nucleated RBC 0.1 10^3/ul; Eosinophil % 0.3 %; Lymphocyte % 13.1 %; Nucleated Red Blood Cells % 0.8
[2020-06-27 08:07] LABS: BUN/Creatinine Ratio 36.4 (8-20); Calcium 8.1 mg/dL (8.6-10.3); EGFR African American 104.5 (>60); EGFR Non-African American 86.4 (>60); Potassium 3.6 mmol/L (3.5-5.0)
[2020-06-27 09:09] LABS: CRP High Sensitivity 412.47 mg/L (<2.00)
[2020-06-27] MEDS ORDERED: Furosemide 20 mg/2 ml IV VIAL IV SLOW PU ONE (10:40)
[2020-06-27] MEDS ORDERED: Albuterol (2.5 MG) 0.5 % CONC 0.5 ML NEB.SOLN INH PRN (11:43)
[2020-06-27] MEDS ORDERED: Albuterol 2.5mg/3 ml (0.083%) NEB.SOLN INH PRN (12:07)
[2020-06-27] MEDS: Acetylcysteine INH SOL (RT) 200 MG/ML 4 ML VIAL INH SCH ×5 (12:10→23:30)
[2020-06-27] MEDS: Albuterol 2.5mg/3 ml (0.083%) NEB.SOLN INH ONE ×2 (12:10→12:15)
[2020-06-27] MEDS: Albuterol 2.5mg/3 ml (0.083%) NEB.SOLN INH PRN ×3 (12:13→23:30)
[2020-06-27 12:25] LABS: C-ANCA Negative (Negative); P-ANCA Negative (Negative)
[2020-06-28] MEDS: Acetylcysteine INH SOL (RT) 200 MG/ML 4 ML VIAL INH SCH ×5 (03:50→19:31)
[2020-06-28] MEDS: Albuterol 2.5mg/3 ml (0.083%) NEB.SOLN INH PRN ×4 (03:51→19:31)
[2020-06-28] MEDS: ZOSYN 3.375 GM Q8H per EXTENDED INFUSION IV SCH ×3 (06:09→21:32)
[2020-06-28 09:46] LABS: Hematocrit 21 % (35-47); Hemoglobin 7.1 g/dL (12.0-16.0); Mean Corpuscular HGB Conc 34 g/dL (31-36); Mean Corpuscular Hemoglobin 35 pg (27-31); Mean Corpuscular Volume 104 fL (80-97); Mean Platelet Volume 8.2 fL (7.4-10.4); Platelet Count 33 10^3/uL (150-450); Red Blood Count 2.03 10^6 /uL (3.70-4.87); Red Cell Distribution Width 21 % (10-15); White Blood Count 11.4 10^3/uL (3.5-10.8)
[2020-06-28 10:55] LABS: BUN/Creatinine Ratio 36.5 (8-20); Calcium 7.3 mg/dL (8.6-10.3); EGFR African American 91.6 (>60); EGFR Non-African American 75.7 (>60); Potassium 3.4 mmol/L (3.5-5.0)
[2020-06-28 11:18] LABS: Polychromasia 1+
[2020-06-28 11:27] LABS: TB1 Ag minus Nil Result -0.01 IU/mL; TB2 Ag minus Nil Result -0.01 IU/mL
[2020-06-28 11:29] LABS: QuantiferonTb Gold Plus Result Negative (Negative)
[2020-06-28 11:32] LABS: ABS Lymphocytes 0.6 10^3/ul (1.0-4.8); ABS Neutrophils 10.7 10^3/ul (1.5-7.7); ABS Nucleated RBC 0.1 10^3/ul; Eosinophil % 0.3 %; Lymphocyte % 5.4 %; Nucleated Red Blood Cells % 0.9
[2020-06-28] MEDS: KCL 20 MEQ/100 ML IVPREMIX 20 MEQ/100 ML BAG IV SCH ×2 (17:39→19:55)
[2020-06-28] MEDS ORDERED: NS 0.9% 1000 ml BAG 1,000 ML IV SCH (18:45)
[2020-06-29] MEDS: Acetylcysteine INH SOL (RT) 200 MG/ML 4 ML VIAL INH SCH ×6 (00:18→19:56)
[2020-06-29 04:39] LABS: Albumin 2.1 g/dL (3.2-5.2); Albumin/Globulin Ratio 0.6 (1-3); Calcium 7.6 mg/dL (8.6-10.3); EGFR African American 84.9 (>60); EGFR Non-African American 70.2 (>60); Globulin 3.6 g/dL (2-4); Magnesium 2.2 mg/dL (1.9-2.7); Potassium 3.9 mmol/L (3.5-5.0); Total Bilirubin 0.5 mg/dL (0.2-1.0); Total Protein 5.7 g/dL (6.4-8.9)
[2020-06-29] MEDS: ZOSYN 3.375 GM Q8H per EXTENDED INFUSION IV SCH ×3 (05:57→23:01)
[2020-06-29 06:25] LABS: Hematocrit 18 % (35-47); Mean Corpuscular HGB Conc 33 g/dL (31-36); Mean Corpuscular Hemoglobin 35 pg (27-31); Mean Corpuscular Volume 105 fL (80-97); Mean Platelet Volume 9.6 fL (7.4-10.4); Platelet Count 26 10^3/uL (150-450); Red Blood Count 1.73 10^6 /uL (3.70-4.87); Red Cell Distribution Width 21 % (10-15); White Blood Count 10.2 10^3/uL (3.5-10.8)
[2020-06-29 07:02] LABS: ABS Lymphocytes 0.6 10^3/ul (1.0-4.8); ABS Monocytes 0.2 10^3/ul (0-0.8); ABS Neutrophils 9.9 10^3/ul (1.5-7.7); ABS Nucleated RBC 0.1 10^3/ul; Lymphocyte % 5.6 %; Nucleated Red Blood Cells % 0.7
[2020-06-29] MEDS: Albuterol 2.5mg/3 ml (0.083%) NEB.SOLN INH PRN ×2 (07:42→19:56)
[2020-06-29 09:52] LABS: Hemoglobin 6.1 g/dL (12.0-16.0)
[2020-06-29] MEDS ORDERED: Furosemide 40 mg/4 ml IV VIAL IV SLOW PU ONE (10:36)
[2020-06-29] MEDS: Fluconazole 100 MG IVPREMIX 100 MG/50 ML BAG IVPB SCH (11:55)
[2020-06-29] MEDS ORDERED: Vancomycin 1,000 MG in NS 0.9% 250 ml 250 ML IVPB ONE (12:20)
[2020-06-29] MEDS ORDERED: Gentamicin ADULT per pharmacy 1 NOTE MISC FOLLOW UP PRN (12:50)
[2020-06-29] MEDS ORDERED: Vancomycin per Pharmacy 1 EA NOTE FOLLOW UP SCH (13:00)
[2020-06-29] MEDS ORDERED: GENTAMICIN ADULT IVPB ONE (13:00)
[2020-06-29] MEDS ORDERED: TIGECYCLINE IVPB SCH (13:00)
[2020-06-29] MEDS ORDERED: NS 0.9% IVPB SCH (13:00)
[2020-06-29] MEDS ORDERED: NS 0.9% IVPB ONE (13:00)
[2020-06-29] MEDS ORDERED: Alteplase (CATHFLO) 2 MG VIAL IV ONE (14:08)
[2020-06-29 18:13] LABS: Hematocrit 23 % (35-47); Hemoglobin 7.8 g/dL (12.0-16.0); Mean Corpuscular HGB Conc 35 g/dL (31-36); Mean Corpuscular Hemoglobin 33 pg (27-31); Mean Corpuscular Volume 96 fL (80-97); Mean Platelet Volume 9.1 fL (7.4-10.4); Platelet Count 25 10^3/uL (150-450); Red Blood Count 2.37 10^6 /uL (3.70-4.87); Red Cell Distribution Width 27 % (10-15); White Blood Count 15.2 10^3/uL (3.5-10.8)
[2020-06-29 18:35] LABS: ABS Neutrophils 14.3 10^3/ul (1.5-7.7)
[2020-06-29] MEDS ORDERED: Acetaminophen IV 1 GM/100ML 1,000 MG/100 ML VIAL IVPB ONE (18:58)
[2020-06-30] MEDS: Acetylcysteine INH SOL (RT) 200 MG/ML 4 ML VIAL INH SCH ×7 (03:16→22:57)
[2020-06-30] MEDS: ZOSYN 3.375 GM Q8H per EXTENDED INFUSION IV SCH ×3 (05:32→22:10)
[2020-06-30 06:08] LABS: INR 1.93 (0.82-1.09)
[2020-06-30 06:17] LABS: BUN/Creatinine Ratio 38.8 (8-20); Calcium 7.9 mg/dL (8.6-10.3); EGFR African American 83.7 (>60); EGFR Non-African American 69.2 (>60); Phosphorus 2.7 mg/dL (2.5-5.0); Potassium 3.3 mmol/L (3.5-5.0)
[2020-06-30] MEDS ORDERED: Perflutren Lipid Microsphere 3 ML VIAL ONE (08:03)
[2020-06-30] MEDS: KCL 20 MEQ/100 ML IVPREMIX 20 MEQ/100 ML BAG IV SCH ×2 (08:45→11:29)
[2020-06-30] MEDS ORDERED: Furosemide 40 mg/4 ml IV VIAL IV SLOW PU ONE (08:57)
[2020-06-30] MEDS ORDERED: methylPREDNISolone SOD 40 mg/ml 1 ml VIAL IM SCH (09:00)
[2020-06-30 09:15] LABS: Hematocrit 23 % (35-47); Hemoglobin 7.7 g/dL (12.0-16.0); Mean Corpuscular HGB Conc 34 g/dL (31-36); Mean Corpuscular Hemoglobin 33 pg (27-31); Mean Corpuscular Volume 97 fL (80-97); Mean Platelet Volume 9.5 fL (7.4-10.4); Platelet Count 25 10^3/uL (150-450); Red Blood Count 2.34 10^6 /uL (3.70-4.87); Red Cell Distribution Width 28 % (10-15); White Blood Count 13.4 10^3/uL (3.5-10.8)
[2020-06-30 09:43] LABS: Polychromasia 1+
[2020-06-30] MEDS: Polyethylene Glycol 3350 17 GM PACKET PO SCH (09:45)
[2020-06-30 09:58] LABS: ABS Lymphocytes 0.7 10^3/ul (1.0-4.8); ABS Neutrophils 12.7 10^3/ul (1.5-7.7); ABS Nucleated RBC 0.2 10^3/ul; Eosinophil % 0.3 %; Lymphocyte % 5.1 %; Nucleated Red Blood Cells % 1.1
[2020-06-30] MEDS ORDERED: Calcium Gluconate 2 GM in NS 0.9% 100 ml BAG 100 ML IV ONE (10:00)
[2020-06-30] MEDS: methylPREDNISolone SOD 40 mg/ml 1 ml VIAL IV SCH ×3 (10:01→17:57)
[2020-06-30] MEDS: Fluconazole 100 MG IVPREMIX 100 MG/50 ML BAG IVPB SCH (11:33)
[2020-06-30] MEDS ORDERED: Dextrose 50% Syringe 50 ml 25 GM/50 ML SYRINGE IV PUSH PRN (13:06)
[2020-06-30] MEDS ORDERED: Docusate LIQ 100 MG/10 ML UDC PO PRN (20:25)
[2020-06-30 20:45] LABS: Calcium 8.7 mg/dL (8.6-10.3); EGFR African American 64.7 (>60); EGFR Non-African American 53.5 (>60); Potassium 3.6 mmol/L (3.5-5.0)
[2020-06-30] MEDS ORDERED: Potassium Chloride LIQUID 20 MEQ/15 ML LIQUID PO ONE (21:07)
[2020-06-30] MEDS ORDERED: Alteplase (CATHFLO) 2 MG VIAL IV ONE (21:38)
[2020-06-30] MEDS ORDERED: Lactated Ringers 500 ml BAG 500 ML IV ONE (21:39)
[2020-06-30 22:29] LABS: Phosphorus 3.3 mg/dL (2.5-5.0)
[2020-07-01] MEDS ORDERED: Lactated Ringers 500 ml BAG 500 ML IV ONE (00:59)
[2020-07-01] MEDS: methylPREDNISolone SOD 40 mg/ml 1 ml VIAL IV SCH ×3 (02:02→17:11)
[2020-07-01] MEDS: Acetylcysteine INH SOL (RT) 200 MG/ML 4 ML VIAL INH SCH ×3 (02:36→18:50)
[2020-07-01] MEDS ORDERED: methylPREDNISolone SOD 40 mg/ml 1 ml VIAL IV ONE (03:30)
[2020-07-01 05:09] LABS: BUN/Creatinine Ratio 44.9 (8-20); Calcium 8.5 mg/dL (8.6-10.3); EGFR African American 66.2 (>60); EGFR Non-African American 54.7 (>60); Magnesium 2.1 mg/dL (1.9-2.7); Potassium 4.2 mmol/L (3.5-5.0)
[2020-07-01] MEDS: ZOSYN 3.375 GM Q8H per EXTENDED INFUSION IV SCH ×3 (06:25→22:25)
[2020-07-01] MEDS: Polyethylene Glycol 3350 17 GM PACKET PO SCH (09:22)
[2020-07-01] MEDS ORDERED: GENTAMICIN ADULT IVPB SCH ×2 (10:00→13:00)
[2020-07-01] MEDS ORDERED: NS 0.9% IVPB SCH ×2 (10:00→13:00)
[2020-07-01] MEDS: Fluconazole 100 MG IVPREMIX 100 MG/50 ML BAG IVPB SCH (10:30)
[2020-07-01 10:52] LABS: Hematocrit 23 % (35-47); Hemoglobin 7.9 g/dL (12.0-16.0); Mean Corpuscular HGB Conc 35 g/dL (31-36); Mean Corpuscular Hemoglobin 34 pg (27-31); Mean Corpuscular Volume 97 fL (80-97); Mean Platelet Volume 9.2 fL (7.4-10.4); Platelet Count 26 10^3/uL (150-450); Red Blood Count 2.34 10^6 /uL (3.70-4.87); Red Cell Distribution Width 26 % (10-15); White Blood Count 14.9 10^3/uL (3.5-10.8)
[2020-07-01] MEDS ORDERED: Acetylcysteine INH SOL (RT) 200 MG/ML 4 ML VIAL INH PRN (11:35)
[2020-07-01] MEDS: Nystatin SUSPENSION 100,000 UNITS/ML UDC PO SCH ×3 (13:54→22:25)
[2020-07-01] MEDS: Famotidine IV 10 MG/ML 2 ml VIAL (20 mg) IV SLOW PU SCH (22:27)
[2020-07-02] MEDS: methylPREDNISolone SOD 40 mg/ml 1 ml VIAL IV SCH (02:16)
[2020-07-02 05:29] LABS: Albumin 2.3 g/dL (3.2-5.2); Albumin/Globulin Ratio 0.5 (1-3); BUN/Creatinine Ratio 68.6 (8-20); Calcium 8.6 mg/dL (8.6-10.3); EGFR Non-African American 63.7 (>60); Globulin 4.3 g/dL (2-4); Magnesium 2.3 mg/dL (1.9-2.7); Phosphorus 3.6 mg/dL (2.5-5.0); Potassium 4.3 mmol/L (3.5-5.0); Total Bilirubin 0.5 mg/dL (0.2-1.0); Total Protein 6.6 g/dL (6.4-8.9)
[2020-07-02] MEDS: ZOSYN 3.375 GM Q8H per EXTENDED INFUSION IV SCH ×3 (06:04→22:24)
[2020-07-02 06:28] LABS: Hematocrit 24 % (35-47); Mean Corpuscular HGB Conc 33 g/dL (31-36); Mean Corpuscular Hemoglobin 33 pg (27-31); Mean Corpuscular Volume 99 fL (80-97); Platelet Count 23 10^3/uL (150-450); Red Blood Count 2.47 10^6 /uL (3.70-4.87); Red Cell Distribution Width 26 % (10-15); White Blood Count 14.2 10^3/uL (3.5-10.8)
[2020-07-02 06:33] LABS: ABS Basophils 0.1 10^3/ul (0-0.2); ABS Eosinophils 0.1 10^3/ul (0-0.6); ABS Lymphocytes 0.8 10^3/ul (1.0-4.8); ABS Neutrophils 13.3 10^3/ul (1.5-7.7); ABS Nucleated RBC 0.3 10^3/ul; Eosinophil % 0.6 %; Lymphocyte % 5.5 %
[2020-07-02] MEDS: Linezolid 600 MG IVPREMIX(*) 600 MG/300 ML BAG IVPB SCH ×2 (10:06→21:01)
[2020-07-02] MEDS: Nystatin SUSPENSION 100,000 UNITS/ML UDC PO SCH ×4 (10:07→21:08)
[2020-07-02] MEDS: Polyethylene Glycol 3350 17 GM PACKET PO SCH (10:07)
[2020-07-02] MEDS: Famotidine IV 10 MG/ML 2 ml VIAL (20 mg) IV SLOW PU SCH ×2 (10:07→20:59)
[2020-07-02] MEDS ORDERED: Alteplase (CATHFLO) 2 MG VIAL IV ONE (11:45)
[2020-07-02] MEDS: Anidulafungin 200 MG in NS 0.9% 250 ml 200 ML IVPB SCH ×2 (11:49→11:50)
[2020-07-02] MEDS ORDERED: Sodium Chloride(INHALANT)0.9% 5 ML NEB.SOLN ONE (11:54)
[2020-07-02] MEDS ORDERED: Sodium Chloride(INHALANT)0.9% 5 ML NEB.SOLN INH SCH (12:00)
[2020-07-02] MEDS: Sodium Chloride(INHALANT)0.9% 5 ML NEB.SOLN INH SCH ×3 (12:07→19:07)
[2020-07-03] MEDS: Sodium Chloride(INHALANT)0.9% 5 ML NEB.SOLN INH SCH ×4 (00:06→07:31)
[2020-07-03] MEDS: Albuterol 2.5mg/3 ml (0.083%) NEB.SOLN INH PRN (05:28)
[2020-07-03 07:07] LABS: Hematocrit 22 % (35-47); Hemoglobin 7.3 g/dL (12.0-16.0); Mean Corpuscular HGB Conc 33 g/dL (31-36); Mean Corpuscular Hemoglobin 33 pg (27-31); Mean Corpuscular Volume 98 fL (80-97); Mean Platelet Volume 9.7 fL (7.4-10.4); Platelet Count 31 10^3/uL (150-450); Red Blood Count 2.25 10^6 /uL (3.70-4.87); Red Cell Distribution Width 26 % (10-15); White Blood Count 22.1 10^3/uL (3.5-10.8)
[2020-07-03 07:18] LABS: BUN/Creatinine Ratio 52.6 (8-20); Calcium 8.1 mg/dL (8.6-10.3); EGFR African American 88.8 (>60); EGFR Non-African American 73.4 (>60); Magnesium 2.1 mg/dL (1.9-2.7); Phosphorus 2.8 mg/dL (2.5-5.0)
[2020-07-03] MEDS ORDERED: Furosemide 20 mg/2 ml IV VIAL IV SLOW PU ONE (07:37)
[2020-07-03] MEDS ORDERED: Acetaminophen IV 1 GM/100ML 1,000 MG/100 ML VIAL IVPB ONE (07:42)
[2020-07-03] MEDS: Nystatin SUSPENSION 100,000 UNITS/ML UDC PO SCH (08:03)
[2020-07-03] MEDS: Famotidine IV 10 MG/ML 2 ml VIAL (20 mg) IV SLOW PU SCH (08:03)
[2020-07-03] MEDS: Linezolid 600 MG IVPREMIX(*) 600 MG/300 ML BAG IVPB SCH (08:30)
[2020-07-03] MEDS ORDERED: Sodium Chloride(INHALANT)0.9% 5 ML NEB.SOLN INH SCH (11:00)
[2020-07-03] MEDS ORDERED: LORazepam 2 mg VIAL 1 ml IV PUSH PRN (11:09)
[2020-07-03] MEDS ORDERED: Ondansetron 4 mg VIAL 2 MG/ML 2 ml VIAL IV PRN (11:09)
[2020-07-03] MEDS ORDERED: Atropine 1% (ORAL/SL) 15 ML BTL SL PRN (11:09)
[2020-07-03] MEDS ORDERED: Albuterol 2.5mg/3 ml (0.083%) NEB.SOLN INH PRN (11:16)
[2020-07-03] MEDS ORDERED: Lorazepam PYXIS KEY PRN (11:21)
[2020-07-03 11:51] VITALS: BP 112/66
[2020-07-03] MEDS ORDERED: Anidulafungin 100 MG in NS 0.9% 100 ml BAG 100 ML IVPB SCH (12:00)
[2020-07-06] MEDS ORDERED: Scopolamine PATCH Remove NOTE PATCH OFF SCH (12:00)
== END 2020-07-04 06:44 | disposition expired | DRG 193 ==
LOC: ED 14:33 → MED 14:33 → OBSVTOIN 18:20 → MED 06-20 19:29 → MEDTELE 06-24 22:39 → MED 06-25 17:22 → ICU 06-28 09:48
PROVIDERS: ADMIT Internal Medicine; ATTEND Internal Medicine